=== PATIENT | male | born 1945 | race Caucasian/White ===

== ENCOUNTER 2016-09-28 07:45 | Inpatient (IN) | payer BC, OTHER ==
[~2016-09-28] VITALS: Ht 188 cm; Wt 141.5 kg
[2016-09-28 14:18] VITALS: BP 171/73; PULSE 81; TEMP 36.5; O2SAT 95
[2016-09-28] MEDS ORDERED: ACETAMINOPHEN 325 MG TAB PO PRN (14:30)
[2016-09-28] MEDS ORDERED: ONDANSETRON INJ 2 MG/ML 2 ML VIAL IV PRN (14:30)
[2016-09-28] MEDS ORDERED: MAGNESIUM HYDROXIDE SUSP 30 ML UDC PO PRN (14:30)
[2016-09-28] MEDS ORDERED: ALUMINUM/MAGNESIUM/SIMETH (MAALOX MAX) 30 ML UDC PO PRN (14:30)
[2016-09-28 14:31] VITALS: BMI 39.6
[2016-09-28 14:43] VITALS: O2SAT 95
[2016-09-28] MEDS ORDERED: PATIENT'S ALLERGY INFO NEEDS ENTERED SCH (14:50)
--- NOTE | 2016-09-28 14:56 | Consultant Recommendations ---
Api Developer Recommendations Date of Service Sep 28, 2016. Api Developer Recommendations ID Consult Dictated #[id number] A/P: 1. Fever -Follow cultures, await old records -No clear sign of infection on exam -will follow, thank you
[2016-09-28] MEDS ORDERED: PIPERACILL/TAZOBAC CONSULT ACTIVE PRN (15:00)
--- NOTE | 2016-09-28 15:01 | History and Physical ---
History & Physical Date & Time of Service: Sep 28, 2016 at 14:42 Chief Complaint: Metastatic Colon Cancer Primary Care Physician: Aba Guajardo M.D. History of Present Illness Source: patient Patient is a 71 year old male that presents as a direct transfer from [facility] with a 5 day history of fever. The patient was admitted on Sunday to [facility] with confusion and a high fever. During workup his WBC was found to be 19 although no source of infection was indicated. During workup abdominal CT showed multiple liver mets including a right sided colon mass. He was taken for colonoscopy yesterday at [facility] and had his Eliquis held since yesterday. During his inpatient stay he was on Vancomycin, Cefepime, and Clindamycin for coverage. He was also found to have Iron deficiency anemia but have held iron supplementation due to his GI findings. The patient states that he was previously healthy other than multiple bilateral knee surgeries by [facility] over the last year. He currently denies any acute complaints and states he feels well this morning. Allergies Coded Allergies: No Known Allergies (Unverified , 09/28/16) Home Medications Scheduled Apixaban (Eliquis), 5 MG PO BID Cyanocobalamin (Vitamin B-12), 250 MCG PO DAILY Metolazone (Zaroxolyn), 2.5 MG PO DAILY Potassium Chloride Microencaps (Potassium Chloride Er), 1 TAB PO DAILY Spironolactone (Aldactone), 1 TAB PO DAILY Miscellaneous Medications Furosemide (Lasix), 40 MG PO Review of Systems Constitutional: No fever, No chills ENT: No hearing loss Respiratory: No cough, No shortness of breath Cardiovascular: No chest pain Abdomen: No pain, No nausea, No vomiting, No diarrhea, No constipation Neurologic: No numbness/tingling Hematologic / Lymphatic: No abnormal bleeding/bruising Integumentary: No rash, No new/changing skin lesions, No bleeding Physical Exam Vital Signs Date Time Temp Pulse Resp B/P (MAP) Pulse Ox O2 Delivery O2 Flow Rate FiO2 09/28/16 14:18 36.5 81 20 171/73 (105) 95 Room Air General Appearance: no apparent distress, + obese Head: normocephalic, atraumatic Respiratory/Chest: chest non-tender, lungs clear, normal breath sounds Cardiovascular: normal peripheral pulses, + systolic murmur, + irregularly irregular Abdomen/GI: normal bowel sounds, non tender, soft, no pulsatile mass, + distended Back: normal inspection, no CVA tenderness Extremities/Musculoskelatal: no calf tenderness, + pedal edema, + swelling (2+ pitting to knee) Neurologic/Psych: alert, normal mood/affect, oriented x 3 Skin: + pertinent finding (stasis dermatitis over lower extremities) Impression Assessment and Plan Patient is a 71 year old male that presents with a 5 day history of fever 1) Fever of unknown origin - Possibly related to GI Malignancy? - Zosyn 3.375 q6h IV - Consult Infectious Disease 2) Colon Cancer - Awaiting Colonoscopy results from [facility] - CT results show multiple liver masses with right sided colon mass 3) Chronic Atrial Fibrillation - Continue to hold Eliquis until tomorrow due to Colonoscopy procedure performed yesterday 4) Iron Deficiency Anemia - Ordered CBC, Transferrin, Ferritin, and TIBC 5) Hypokalemia - K+ 3.2 - 2 Doses of 20 mEq IV K+ 6) Home Medications - Continue Furosemide and Spironolactone - Hold Eliquis due to procedure yesterday 7) DVT Prophylaxis - SCD and LALI - Holding due to recent colonoscopy 8) Code Status - DNR Resident Physician Supervision Note: I was present with Dr. Sheth during the history and exam. I discussed the case with the resident and agree with the findings and plan as documented in the note. Any exceptions or clarifications are listed here: 71 y/o M with persistent fever and likely new Dx of met Colon CA Fevers are low grade and no infection source are found OE Overweight elderly male in no distress S1,2 R CTAB Distended, NT, BS+ Min edema P: Awaiting colonoscopy results Awaiting culture results Broad spectrum coverage - ID consult Fevers may be low grade and owing to malignancy May need additional imaging - full body CT Documented By: Talat Wharton Level of Care Med/Surg Advanced Directives Existing Power of Transport Tech: Yes Resuscitation Status DO NOT RESUSCITATE VTE Prophylaxis VTE Risk Assessment Done? Y/N: Yes Risk Level: High Given or contraindicated: T.E.D. Stockings, SCD's
[2016-09-28 15:33] LABS: BASO % 0.3 %; BASO ABS # 0.05 K/uL (0-0.2); COMPLETE YES; EOS % 0.6 %; HEMATOCRIT 29.9 % (42-52); IG% 1.1 %; LYMPH % 10.4 %; LYMPH ABS # 1.83 K/uL (1.2-3.4); MEAN CELL VOLUME 79.9 fL (80-100); MEAN CORPUSCULAR HEMOGLOBIN 26.7 pg (25-34); MEAN CORPUSCULAR HGB CONC 33.4 g/dl (32-36); MEAN PLATELET VOLUME 8.9 fL (7.4-10.4); MONO % 7.5 %; NEUT % 80.1 %; PLATELET COUNT 383 K/uL (130-400); RED BLOOD COUNT 3.74 M/uL (4.7-6.1); WHITE BLOOD COUNT 17.55 K/uL (4.8-10.8)
[2016-09-28 15:39] VITALS: BP 133/73; PULSE 87; TEMP 36.5; O2SAT 95
[2016-09-28 16:10] VITALS: O2SAT 95
[2016-09-28 16:21] LABS: BUN/CREATININE RATIO 9.4 (10-20); CREATININE 0.74 mg/dl (0.60-1.40); POTASSIUM 3.2 mmol/L (3.5-5.1)
[2016-09-28] MEDS ORDERED: PIPERACILL/TAZOBAC IV 4.5 GM in DEXTROSE 5% 100ML IV SCH (16:30)
[2016-09-28 16:44] LABS: FERRITIN 359.8 ng/ml (8.0-388.0); TOTAL IRON BINDING CAPACITY 182 mcg/dl (250-450)
--- NOTE | 2016-09-28 16:46 | INFECT. DISEASE CONSULTATION ---
DATE OF CONSULTATION: 09/28/2016 HISTORY OF PRESENT ILLNESS: This is a 71-year-old gentleman who was transferred from [facility] with fevers. He was admitted initially on Sunday after he had an episode of disorientation at home and was found to be febrile. He states the week prior, he was admitted for a 24-hour overnight for fevers, but he states no infection was found and he was subsequently discharged to home. He states he was started on antibiotics. Per the admitting team he was on vancomycin, cefepime and Flagyl empirically. It is also verbally reported to me that he did have a CAT scan while admitted to [facility] which showed colon mass and liver metastasis. I do not have report for review. He also reportedly had colonoscopy; however, I do not know the results of that. Blood cultures are reportedly negative and patient remains on antibiotics. He states that he has been asymptomatic with fevers and he is unclear when his last fever was. He is tolerating antibiotics well. He states prior to admission he was feeling healthy. He states his appetite was strong. He denies any melena or any difficulty with bowel movements. He denied any nausea, vomiting, diarrhea, abdominal pain, abdominal distention, weight change or change in appetite. He does have a dry cough but denies any shortness of breath or dyspnea on exertion. He denies any purulent cough or any hemoptysis. He denies any chest pain or shortness of breath. He denies any headache or visual changes. He denies any skin rash. He denies any tick bites. He has had no recent travel. He has no sick contacts at home. He remains on antibiotics. His only pertinent infectious history is bilateral knee replacements with significant infection in the right knee. He does admit to having infection and multiple knee replacements on the right side secondary to this; however, he is unable to tell me what cultures grew. He states he was on a prolonged course of intravenous antibiotics in 2014 and again in the early part of 2016, but his PICC line has subsequently been removed and he was not on any antibiotics leading up to this admission to the hospital. He denies any significant medical history, but reportedly has a new diagnosis of colon mass with liver metastases. He denies any surgery other than his bilateral knee replacements with multiple re-do surgeries on the right side. He denies any allergies to medications. FAMILY HISTORY: Noncontributory. CURRENT MEDICATIONS: Include Aldactone, Lasix, Pepcid, Colace, Zosyn, Tylenol, Maalox, milk of magnesia and Zofran. PHYSICAL EXAMINATION: VITAL SIGNS: Temperature is 36.5, pulse 81, respiratory rate is 20, blood pressure is 171/73 and oxygen saturation is 95% on room air. GENERAL: He is awake, alert and oriented x3. He is in no acute distress. HEENT: Mucous membranes are moist. Extraocular muscles are intact. HEART: Regular. LUNGS: Clear. ABDOMEN: Distended but nontender. EXTREMITIES: There is no lower extremity erythema. There is edema bilaterally. Knee incisions are well healed. There is no laboratory studies or imaging to review at this time. ASSESSMENT AND PLAN: Fever, certainly infectious sources should be ruled out, especially with his history of knee infection; however, I do not see any evidence of erythema, edema, warmth or tenderness to suggest a new knee infection. Certainly his fevers could be related to new diagnosis of metastatic colon cancer; however, I will await the results of his previous records and CAT scan report. He certainly can be maintained on antibiotics pending of culture results and further laboratory studies. Thank you for this consultation.
[2016-09-28 19:40] VITALS: BP 136/75; PULSE 74; TEMP 36.4; O2SAT 96
[2016-09-28] MEDS ORDERED: APIX1TAB3 PO (20:49)
[2016-09-28] MEDS ORDERED: POTA20TA13 PO (20:49)
[2016-09-28] MEDS ORDERED: SPIR50TA3 PO (20:49)
[2016-09-28] MEDS ORDERED: METO2.5T PO (20:50)
[2016-09-28] MEDS ORDERED: FRS/40 PO (20:50)
[2016-09-28] MEDS ORDERED: CYAN250T PO (20:50)
[2016-09-28] MEDS ORDERED: NURSING VERBAL MED ORDER ONE ×2 (21:00→22:00)
[2016-09-28] MEDS ORDERED: POTASSIUM CHLR 20 MEQ / WTR 20 MEQ in PREMIXED WATER 100 ML IV SCH (21:15)
[2016-09-28] MEDS ORDERED: POTASSIUM CHLR 10 MEQ / WTR 10 MEQ in PREMIXED WATER 100 ML IV SCH (21:15)
[2016-09-28] MEDS: PIPERACILL/TAZOBAC IV 4.5 GM in DEXTROSE 5% 100ML 100 ML IV SCH (21:20)
[2016-09-28] MEDS ORDERED: CEFTRIAXONE SOD IM SCH (21:30)
[2016-09-28] MEDS ORDERED: POTASSIUM CHLORIDE 20 MEQ TABCR PO STA (21:41)
[2016-09-28] MEDS: DOCUSATE SODIUM 100 MG CAP PO SCH (23:01)
[2016-09-28] MEDS: GUAIFENESIN SUGAR FREE 200 MG/10 ML UDC PO PRN (23:01)
[2016-09-28 23:57] VITALS: BP 114/57; PULSE 82; TEMP 36.3; O2SAT 96
[2016-09-29] MEDS: PIPERACILL/TAZOBAC IV 4.5 GM in DEXTROSE 5% 100ML 100 ML IV SCH (01:19)
[2016-09-29 04:02] VITALS: BP 132/69; PULSE 80; TEMP 36.8; O2SAT 95
[2016-09-29 06:59] VITALS: Ht 188 cm; Wt 141.5 kg
[2016-09-29 07:31] VITALS: BP 117/71; PULSE 79; TEMP 36.6; O2SAT 96
[2016-09-29] MEDS: DOCUSATE SODIUM 100 MG CAP PO SCH ×2 (07:58→20:45)
[2016-09-29] MEDS: SPIRONOLACTONE 25 MG TAB PO SCH (07:58)
[2016-09-29] MEDS: FUROSEMIDE 40 MG TAB PO SCH (07:58)
[2016-09-29] MEDS: FAMOTIDINE 20 MG TAB PO SCH (07:59)
[2016-09-29] MEDS ORDERED: PIPERACILL/TAZOBAC IV 4.5 GM in DEXTROSE 5% 100ML 100 ML IV SCH (09:00)
--- NOTE | 2016-09-29 10:16 | Family Medicine Progress Note ---
Progress Note Date of Service Sep 29, 2016. Subjective Pt evaluation today including: conversation w/ patient, physical exam Voiding: no voiding problems, no incontinence Had a long discussion about cancer today - he was so surprised, as he never thought he would get cancer. He overall lives at home with a roommate and his mom. He reports at times his roommate's mom answers questions for him and he does not like this. He had a CT of abdomen and pelvis done at [facility], but has not had further screening for staging. He doesn't have any pain. Wants to overall remain comfortable. He would be willing to try chemo / radiation and surgery IF it could be curative. Records from [facility] reviewed. Pertinent labwork: ESR 90, CEA 663, AFP 0.9 CT Chest: No lung mets. Innumerous hepatic mets. CT A/P: Hepatic mets, colonic mass visualized. Colonoscopy: Large friable tumor present 75-99% of cecum - 3 biopsies were taken (Pending results). 3-4 sessile polyps visualized but no biopsies taken. Additional Comments: ROS negative unless otherwise noted in HPI. Medications Current Inpatient Medications Medications (Trade) Dose Ordered Sig/Carley Route Start Time Stop Time Status Last Admin Dose Admin Acetaminophen (Tylenol Tab) 650 mg Q4H PRN PO 09/28/16 14:30 10/28/16 14:29 Al Hydrox/Mg Hydrox/Simethicone (Maalox Max Susp) 15 ml Q4H PRN PO 09/28/16 14:30 10/28/16 14:29 Magnesium Hydroxide (Milk Of Magnesia Susp) 30 ml Q6H PRN PO 09/28/16 14:30 10/28/16 14:29 Ondansetron HCl (Zofran Inj) 4 mg Q6H PRN IV 09/28/16 14:30 10/28/16 14:29 Spironolactone (Aldactone Tab) 50 mg QAM PO 09/29/16 08:00 10/29/16 07:59 09/29/16 07:58 50 MG Furosemide (Lasix Tab) 40 mg QAM PO 09/29/16 08:00 10/29/16 07:59 09/29/16 07:58 40 MG Famotidine (Pepcid Tab) 20 mg QAM PO 09/29/16 08:00 10/29/16 07:59 09/29/16 07:59 20 MG Docusate Sodium (coLACE CAP) 100 mg BID PO 09/28/16 20:00 10/28/16 19:59 09/29/16 07:58 100 MG Piperacillin Sod/ Tazobactam Sod (Consult) 1 ea UD PRN N/A 09/28/16 15:00 10/28/16 14:59 Guaifenesin (Robitussin Sugar Free Syrup) 200 mg Q4H PRN PO 09/28/16 22:30 10/28/16 22:29 09/28/16 23:01 200 MG Piperacillin Sod/ Tazobactam Sod 4.5 gm/Dextrose 120 ml @ 30 mls/hr Q8H IV 09/29/16 09:00 09/30/16 23:59 09/29/16 07:59 30 MLS/HR Objective Vital Signs Date Time Temp Pulse Resp B/P (MAP) Pulse Ox O2 Delivery O2 Flow Rate FiO2 09/29/16 07:31 36.6 79 18 117/71 (86) 96 09/29/16 04:02 36.8 80 20 132/69 (90) 95 Room Air 09/29/16 00:00 Room Air 09/28/16 23:57 36.3 82 20 114/57 (76) 96 Room Air 09/28/16 19:40 36.4 74 18 136/75 (95) 96 Room Air 09/28/16 16:10 95 Room Air 09/28/16 15:39 36.5 87 20 133/73 (93) 95 Room Air 09/28/16 14:43 95 Room Air 09/28/16 14:18 36.5 81 20 171/73 (105) 95 Room Air Physical Exam General Appearance: WD/WN, no apparent distress, + obese Eyes: normal inspection, PERRL ENT: hearing grossly normal Neck: supple, no JVD Respiratory/Chest: lungs clear, normal breath sounds, no respiratory distress Cardiovascular: regular rate, rhythm, no murmur Abdomen: normal bowel sounds, non tender, soft Extremities: non-tender, normal inspection, no pedal edema Neurologic/Psychiatric: alert, normal mood/affect Skin: no rash Lymphatic: no adenopathy Laboratory Results Last 24 Hours Test 09/28/16 14:58 09/28/16 15:22 Transferrin % Saturation % White Blood Count 17.55 K/uL Red Blood Count 3.74 M/uL Hemoglobin 10.0 g/dL Hematocrit 29.9 % Mean Corpuscular Volume 79.9 fL Mean Corpuscular Hemoglobin 26.7 pg Mean Corpuscular Hemoglobin Concent 33.4 g/dl Platelet Count 383 K/uL Mean Platelet Volume 8.9 fL Neutrophils (%) (Auto) 80.1 % Lymphocytes (%) (Auto) 10.4 % Monocytes (%) (Auto) 7.5 % Eosinophils (%) (Auto) 0.6 % Basophils (%) (Auto) 0.3 % Neutrophils # (Auto) 14.05 K/uL Lymphocytes # (Auto) 1.83 K/uL Monocytes # (Auto) 1.32 K/uL Eosinophils # (Auto) 0.11 K/uL Basophils # (Auto) 0.05 K/uL RDW Standard Deviation 50.5 fL RDW Coefficient of Variation 17.2 % Immature Granulocyte % (Auto) 1.1 % Immature Granulocyte # (Auto) 0.19 K/uL Sodium Level 134 mmol/L Potassium Level 3.2 mmol/L Chloride Level 93 mmol/L Carbon Dioxide Level 31 mmol/L Anion Gap 10.0 mmol/L Blood Urea Nitrogen 7 mg/dl Creatinine 0.74 mg/dl Est Creatinine Clear Calc Drug Dose 134.4 ml/min Estimated GFR () 106.8 Estimated GFR (Non- 92.2 BUN/Creatinine Ratio 9.4 Random Glucose 96 mg/dl Calcium Level 8.0 mg/dl Total Iron Binding Capacity 182 mcg/dl Transferrin 149 mg/dl Ferritin 359.8 ng/ml Total Bilirubin 0.8 mg/dl Direct Bilirubin 0.4 mg/dl Aspartate Amino Transf (AST/SGOT) 47 U/L Alanine Aminotransferase (ALT/SGPT) 34 U/L Alkaline Phosphatase 388 U/L Total Protein 7.0 gm/dl Albumin 2.0 gm/dl Assessment and Plan 71 yo M, initially presented for fever of unknown origin, found to have metastatic colon cancer. Pending colon biopsies. Plan: Metastatic colon cancer, new diagnosis - Will get CT head today to evaluate for further mets - Awaiting colonoscopy biopsy results - Will discuss with Onc once this returns, and get him into oncology as an outpt Fever - Likely due to process of cancer - Continue to monitor, has been afebrile - Will stop Zosyn today Overall goals of care POLST form completed - DNR, Limited interventions, Abx for comfort, NO Peg tube Atrial fibrillation, chronic Will discuss restarting Eliquis Hypokalemia, 3.2 today Will add PO and IV therapy Hypoalbuminemia Will consult Nutrition VTE: SCDs, TEDS CODE STATUS: DNR Resident Physician Supervision Note: I interviewed and examined the patient. Discussed with Dr. Leung and agree with findings and plan as documented in the note. Any exceptions or clarifications are listed here: None Documented By: Jac Bey feeling better. discussed w/u extensively. no other new complaints. ROS otherwise negative except for as above vitals noted nad breathing unlabored no pallor or icterus fever - appears most likely related to malignancy - will stop abx and follow into tomorrow metastatic colon cancer - awaiting pathology but appears likely will be stable for home tomorrow- for outpt oncology f/u next week then plannnig for treatment Resident Tracking Resident Involvement: Resident Care Provided Care Provided: Adult Hospital Medicine
[2016-09-29 11:15] VITALS: BP 122/69; PULSE 82; TEMP 36.7; O2SAT 98
--- NOTE | 2016-09-29 11:32 | Progress Note ---
Subjective Date of Service: Sep 29, 2016. Subjective pt afebrile since admission, cultures pending. previous cultures reported negative. abx stopped by primary service. for further workup/staging of suspected colon ca. no overnight events. wbc elevated. AST mildly elevated. Objective Vital Signs Date Time Temp Pulse Resp B/P (MAP) Pulse Ox O2 Delivery O2 Flow Rate FiO2 09/29/16 11:15 36.7 82 18 122/69 (86) 98 09/29/16 08:00 Room Air 09/29/16 07:31 36.6 79 18 117/71 (86) 96 09/29/16 04:02 36.8 80 20 132/69 (90) 95 Room Air 09/29/16 00:00 Room Air 09/28/16 23:57 36.3 82 20 114/57 (76) 96 Room Air 09/28/16 19:40 36.4 74 18 136/75 (95) 96 Room Air 09/28/16 16:10 95 Room Air 09/28/16 15:39 36.5 87 20 133/73 (93) 95 Room Air 09/28/16 14:43 95 Room Air 09/28/16 14:18 36.5 81 20 171/73 (105) 95 Room Air Laboratory Results Last 24 Hours Test 09/28/16 14:58 09/28/16 15:22 Transferrin % Saturation % White Blood Count 17.55 K/uL Red Blood Count 3.74 M/uL Hemoglobin 10.0 g/dL Hematocrit 29.9 % Mean Corpuscular Volume 79.9 fL Mean Corpuscular Hemoglobin 26.7 pg Mean Corpuscular Hemoglobin Concent 33.4 g/dl Platelet Count 383 K/uL Mean Platelet Volume 8.9 fL Neutrophils (%) (Auto) 80.1 % Lymphocytes (%) (Auto) 10.4 % Monocytes (%) (Auto) 7.5 % Eosinophils (%) (Auto) 0.6 % Basophils (%) (Auto) 0.3 % Neutrophils # (Auto) 14.05 K/uL Lymphocytes # (Auto) 1.83 K/uL Monocytes # (Auto) 1.32 K/uL Eosinophils # (Auto) 0.11 K/uL Basophils # (Auto) 0.05 K/uL RDW Standard Deviation 50.5 fL RDW Coefficient of Variation 17.2 % Immature Granulocyte % (Auto) 1.1 % Immature Granulocyte # (Auto) 0.19 K/uL Sodium Level 134 mmol/L Potassium Level 3.2 mmol/L Chloride Level 93 mmol/L Carbon Dioxide Level 31 mmol/L Anion Gap 10.0 mmol/L Blood Urea Nitrogen 7 mg/dl Creatinine 0.74 mg/dl Est Creatinine Clear Calc Drug Dose 134.4 ml/min Estimated GFR () 106.8 Estimated GFR (Non- 92.2 BUN/Creatinine Ratio 9.4 Random Glucose 96 mg/dl Calcium Level 8.0 mg/dl Total Iron Binding Capacity 182 mcg/dl Transferrin 149 mg/dl Ferritin 359.8 ng/ml Total Bilirubin 0.8 mg/dl Direct Bilirubin 0.4 mg/dl Aspartate Amino Transf (AST/SGOT) 47 U/L Alanine Aminotransferase (ALT/SGPT) 34 U/L Alkaline Phosphatase 388 U/L Total Protein 7.0 gm/dl Albumin 2.0 gm/dl Assessment and Plan (1) Fever Assessment & Plan: doubt infectious etiology, currently afebrile. wbc elevated but could be do to suspected metastatic colon ca. currently off of abx. cultures negative. suspect fever is related to underlying cancer with mets to liver. ok to hold abx. Will sign of.
--- NOTE | 2016-09-29 12:51 | DIAGNOSTIC IMAGING REPORT ---
HEAD CT NONCONTRAST CT DOSE: 537.48 mGy.cm HISTORY: Mental status change metastatic colon ca ?mets TECHNIQUE: Multiaxial CT images of the head were performed without the use of intravenous contrast. Comparison: None. Findings: The paranasal sinuses and mastoid air cells are clear. The calvarium and skull base are intact. The ventricles and sulci are within normal limits. There is no mass, hematoma, midline shift, or acute infarct. Impression: No acute intracranial abnormality. Electronically signed by: Jeb Walker M.D. 09/29/2016 12:49 PM Dictated Date/Time: 09/29/2016 12:48 PM
[2016-09-29 14:48] VITALS: BP 115/51; PULSE 86; TEMP 36.6; O2SAT 95
[2016-09-29 18:35] LABS: INR 1.3 (0.9-1.1); PROTHROMBIN TIME (PATIENT) 13.5 SECONDS (9.0-12.0)
[2016-09-29 19:41] VITALS: BP 146/63; PULSE 85; TEMP 36.6; O2SAT 96
[2016-09-29] MEDS ORDERED: NON-FORMULARY MEDICATION (Apixaban (Eliquis) 5 MG) PO SCH (20:00)
[2016-09-29] MEDS: APIXABAN 2.5 MG TAB PO SCH (20:46)
[2016-09-30] VITALS (7 sets, daily range): BP systolic 114–156; BP diastolic 66–82; PULSE 74–81; TEMP 36.4–37.5; O2SAT 94–96
[2016-09-30 06:51] LABS: CREATININE 0.77 mg/dl (0.60-1.40)
[2016-09-30] MEDS ORDERED: SPIRONOLACTONE PO SCH (08:00)
[2016-09-30] MEDS: APIXABAN 2.5 MG TAB PO SCH (08:43)
[2016-09-30] MEDS: FUROSEMIDE 40 MG TAB PO SCH (08:44)
[2016-09-30] MEDS: DOCUSATE SODIUM 100 MG CAP PO SCH (08:44)
[2016-09-30] MEDS: SPIRONOLACTONE 25 MG TAB PO SCH (08:45)
[2016-09-30] MEDS: FAMOTIDINE 20 MG TAB PO SCH (08:46)
[2016-09-30] MEDS ORDERED: POTASSIUM CHLORIDE 10 MEQ TABCR PO ONE (09:45)
[2016-09-30] MEDS: GUAIFENESIN SUGAR FREE 200 MG/10 ML UDC PO PRN (09:57)
--- NOTE | 2016-09-30 11:11 | Discharge Instructions ---
Discharge Instructions Date of Service Sep 30, 2016. Admission Reason for Admission: Metastatic Colon Cancer Discharge Discharge Diagnosis / Problem: new diagnosis of metastatic colon cancer Discharge Goals Goal(s): Diagnostic testing Activity Recommendations Activity Limitations: resume your previous activity . Instructions / Follow-Up Instructions / Follow-Up you should be contacted by the cancer center sometime sunday for a follow up appointment - we've notified the oncology team as well as our nurse navigator to be working on this. as a final "failsafe" if you haven't heard from them by about 2p on sunday, call [phone] to check on the status of your appointment since the fever almost certainly was being caused by the cancer, and not by an infection, until you're getting treatment it's quite possible that you'll have more fevers from time to time. if it's just the fever, and only the fever, without any other new or worrisome symptoms, then it would be OK to take a tylenol and watch/wait. if it's any symptoms beyond the fever, or anything seems weird or worrisome, then we'd want you to get checked out right away. Current Hospital Diet Patient's current hospital diet: Regular Diet Discharge Diet Recommended Diet: Regular Diet Pending Studies Studies pending at discharge: yes List of pending studies: pathology report from the colonoscopy biopsy done at [facility] Medical Emergencies . Who to Call and When: Medical Emergencies: If at any time you feel your situation is an emergency, please call 911 immediately. . Non-Emergent Contact Non-Emergency issues call your: Primary Care Provider, Oncologist . . "Provider Documentation" section prepared by Jac Bey. . Welder Tack Recommendations Welder Tack Recommendations: ID Consult Dictated #[id number] A/P: 1. Fever -Follow cultures, await old records -No clear sign of infection on exam -will follow, thank you VTE Core Measure Inpt VTE Proph given/why not?: Other Anticoagulation (eliquis), TBrennon Siddiqi, SCD's
--- NOTE | 2016-09-30 12:07 | Discharge Summary ---
Discharge Summary Date of Service Sep 30, 2016. Discharge Summary Admission Date: Sep 28, 2016 at 13:27 Discharge Date: Sep 30, 2016 Discharge Disposition: Home Principal Diagnosis: fever related to new colon cancer Procedures: done at [facility] predominantly - see records from there (colo showing cecal mass - biopsied, CT abd/pelvis showing probable liver mets) CT head here clear of mets Last Resulted CBC 09/28/16 15:22 Red Blood Count 3.74, Mean Corpuscular Volume 79.9, Mean Corpuscular Hemoglobin 26.7, Mean Corpuscular Hemoglobin Concent 33.4, Mean Platelet Volume 8.9, Neutrophils (%) (Auto) 80.1, Lymphocytes (%) (Auto) 10.4, Monocytes (%) (Auto) 7.5, Eosinophils (%) (Auto) 0.6, Basophils (%) (Auto) 0.3, Neutrophils # (Auto) 14.05, Lymphocytes # (Auto) 1.83, Monocytes # (Auto) 1.32, Eosinophils # (Auto) 0.11, Basophils # (Auto) 0.05 Last Resulted BMP 09/28/16 15:22 09/30/16 05:18 Consultations: infectious disease Medication Reconciliation Continued Medications: Apixaban (Eliquis) 5 Mg Tab 5 MG PO BID, TAB Cyanocobalamin (Vitamin B-12) 250 Mcg Tab 250 MCG PO DAILY, TAB Furosemide (Lasix) 40 Mg Tab 40 MG PO, TAB Metolazone (Zaroxolyn) 2.5 Mg Tab 2.5 MG PO DAILY, TAB Potassium Chloride Microencaps (Potassium Chloride Er) 20 Meq Tab 1 TAB PO DAILY for 30 Days, #30 TAB 5 Refills Spironolactone (Aldactone) 50 Mg Tab 1 TAB PO DAILY for 30 Days, #30 TAB 3 Refills Discharge Exam Physical Exam: General Appearance: no apparent distress Eyes: EOMI ENT: hearing grossly normal Neck: trachea midline Respiratory/Chest: no respiratory distress, no accessory muscle use Extremities: normal inspection 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 was worked up appropriately at [facility] - found to have new colon cancer w mets, but transferred here due to concern on ?concomitant occult infection. seen by ID here, primary and ID thought unlikely infection - abx held 09/29, no recurrence of fever and no s/s infectio --> stable for home. --new colon cancer discussed extensively - since no final pathology back yet, will wait to have see oncology until ?mid next week (at the latest) to have complete picture for treatment plan. discussed options and he chooses to seek treatment here - referral made, asked RN joe to assist in setting up, and also gave pt # for [facility]. -stable for home. discussed treatment of fever if purely fever vs when to seek attention if new sx / worry sx. (summation - if only a temp and nothing else, can cautiously treat w tylenol at home/watchful waiting, but if any level of concern or any other new sx/change sx to go with the fever then would want to seek care immediately) discharge to home, close oncology and PCP f/u Total Time Spent: Greater than 30 minutes This includes examination of the patient, discharge planning, medication reconciliation, and communication with other providers. Discharge Instructions Please refer to the electronic Patient Visit Report (Discharge Instructions) for additional information. Additional Copies To Shreyas Chandler D.O.; Aba Guajardo M.D.
[2016-10-28] MEDS ORDERED: LORA-741 PO (10:08)
[2016-10-28] MEDS ORDERED: POTA20TA13 PO (10:08)
[2016-10-28] MEDS ORDERED: TPRSR25 PO (10:08)
[2016-10-28] MEDS ORDERED: RXNS5 PO (10:08)
== END 2016-09-30 13:23 | disposition home or self-care (01) | DRG 375 ==
LOC: C.4E 13:27
PROVIDERS: ADMIT Internal Medicine; ATTEND Family Medicine
DX: C18.9 Malignant neoplasm of colon, unspecified (principal); C78.7 Secondary malignant neoplasm of liver and intrahepatic bile duct; Z68.41 Body mass index [BMI] 40.0-44.9, adult; R50.81 Fever presenting with conditions classified elsewhere; D50.9 Iron deficiency anemia, unspecified; E87.6 Hypokalemia; E88.09 Other disorders of plasma-protein metabolism, not elsewhere classified; I48.2 Chronic atrial fibrillation; E66.9 Obesity, unspecified; Z66 Do not resuscitate; Z96.653 Presence of artificial knee joint, bilateral; Z79.01 Long term (current) use of anticoagulants; Z79.899 Other long term (current) drug therapy

== ENCOUNTER 2016-10-18 11:23 | Inpatient (IN) | payer BC, OTHER ==
[2016-10-18] VITALS (8 sets, daily range): BP systolic 128–160; BP diastolic 57–73; PULSE 102–120; TEMP 36.5–37.2; O2SAT 87–95; Ht 188 cm; Wt 129.5 kg
[~2016-10-18] VITALS: Ht 188 cm; Wt 129.5 kg
[~2016-10-18 11:23] MED LIST: APIX1TAB3 PO; CYAN250T PO; FRS/40 PO; METO2.5T PO; POTA20TA13 PO; SPIR50TA3 PO
[2016-10-18] MEDS ORDERED: HYDROCODONE/HOMATROPINE SYRUP 5MG/1.5MG 5ML UDP PO STA (12:23)
--- NOTE | 2016-10-18 12:27 | EMERGENCY ROOM VISIT NOTE ---
History Report prepared by Anya: Ignacio Jeff Under the Supervision of: Dr. Rich Soria M.D. First contact with patient: 12:05 Chief Complaint: SHORTNESS OF BREATH Stated Complaint: SHORTNESS OF BREATH Nursing Triage Summary: Increasing SOB and cough. Patient recently diagnosed with colon CA by colonoscopy and is to see surgeon next week. Patient states he has had a productive cough with moderate sputum production white in color for 3-4 days. Patient began with SOB over night. No SOB prior to this time. History of Present Illness The patient is a 71 year old male who presents to the Emergency Room with complaints of worsening shortness of breath that started 3 weeks ago. The patient was recently diagnosed with colon cancer by colonoscopy. He says that ever since he was diagnosed around 3 weeks ago, he has had worsening breathing difficulties The patient adds that he started having a productive cough with moderate white sputum production 3 days ago, that is really bad at night. The patient states that he saw his cancer doctor (Dr. Brand) on the 08 of October , and has another appointment scheduled for November 07. However, due to the patient's increasing shortness of breath, the patient called Dr. Brand this morning, and was recommended to come here to be admitted now. The patient says that he cannot walk around his house due to the shortness of breath. He denies any abdominal pain. He adds that he is always in atrial fibrillation, and is on Eliquis for that. Source of History: patient Onset: 3 weeks ago Position: other (global - shortness of breath) Symptom Intensity: cannot walk due to shortness of breath Timing: worsening Modifying Factors (Worsening): exertion Associated Symptoms: + cough, No abdominal pain Note: No other associated symptoms noted. Review of Systems See HPI for pertinent positives & negatives. A total of 10 systems reviewed and were otherwise negative. Past Medical & Surgical Medical Problems: (1) Congestive heart failure (2) Fever (3) Fever of unknown origin Family History No pertinent family history Social History Smoking Status: Never Smoker Marital Status: single Occupation Status: retired Current/Historical Medications Scheduled Apixaban (Eliquis), 5 MG PO BID Cyanocobalamin (Vitamin B-12), 250 MCG PO DAILY Furosemide (Lasix), 40 MG PO BID Metolazone (Zaroxolyn), 2.5 MG PO DAILY Potassium Chloride Microencaps (Potassium Chloride Er), 1 TAB PO DAILY Spironolactone (Aldactone), 1 TAB PO DAILY Allergies Coded Allergies: No Known Allergies (Unverified , 09/28/16) Physical Exam Vital Signs Date Time Temp Pulse Resp B/P (MAP) Pulse Ox O2 Delivery O2 Flow Rate FiO2 10/18/16 14:31 129 26 169/98 93 Room Air 10/18/16 13:11 99 22 140/89 99 Nebulizer 10/18/16 13:03 104 18 94 Room Air 10/18/16 12:53 94 Room Air 10/18/16 12:53 94 Room Air 10/18/16 12:06 108 10/18/16 11:33 36.8 104 10 134/77 94 Room Air 10/18/16 11:33 94 Room Air Physical Exam GENERAL: Patient is a healthy-appearing well-nourished 71 year old male. Coughing. HEAD: Normocephalic atraumatic EYES: Ocular movements intact pupils equal and react to light OROPHARYNX mucous membranes are moist no exudates present no erythema or edema present NECK: Supple no nuchal rigidity CHEST: Good equal expansion LUNGS: Clear and equal to auscultation CARDIAC: Normal S1 and S2 ABDOMEN: Soft nontender no guarding BACK: No CVA tenderness EXTREMITIES: No pain upon palpation normal muscle strength in all groups no clubbing cyanosis or edema NEURO: Patient is following commands and answering questions appropriately. Alert and oriented x3 Cranial Nerves 2-12 grossly intact Medical Decision & Procedures ER Provider Diagnostic Interpretation: Radiology results as stated below per my review and radiologist interpretation: CHEST ONE VIEW PORTABLE CLINICAL HISTORY: Pt c/o SOB dyspnea COMPARISON STUDY: No previous studies for comparison. FINDINGS: Mild cardia megaly. Prominent pulmonary vasculature. Small left effusion. IMPRESSION: Mild congestive heart failure. Electronically signed by: Jeb Walker M.D. 10/18/2016 12:45 PM Dictated Date/Time: 10/18/2016 12:[address] ANGIOGRAM OF THE CHEST CLINICAL HISTORY: 71 years-old Male presenting with chest pain. COMPARISON: 09/25/2016. TECHNIQUE: Multidetector CT angiography of the chest was performed following the administration of 100 milliliters of Optiray 320 using a pulmonary embolus protocol. 3-D maximal intensity projection (MIP) images were created for review. CT DOSE: 856.42 mGy.cm FINDINGS: Patient body habitus, respiratory motion, and suboptimal timing of the contrast bolus mildly limited evaluation for pulmonary embolus. Pulmonary vasculature: Allowing for limitations in image quality, no filling defect within the pulmonary arteries to suggest embolus. Main pulmonary artery enlarged measuring 3.5 cm in transverse dimension, which could suggest pulmonary hypertension. Remaining chest: On soft tissue windows, normal thyroid and thoracic inlet. No axillary, mediastinal, or hilar lymphadenopathy. Few prominent pericardial lymph nodes as on prior exam. Biatrial enlargement of the heart. Aortic valve, mitral annular, and coronary artery calcification. Aortic arch atherosclerosis. Normal three-vessel branching pattern of the aortic arch. No pericardial effusion. Small right pleural effusion. On lung windows, minimal dependent opacities in the right lung, likely atelectasis. Airways patent. On bone windows, degenerative changes of the thoracic spine noted. IMPRESSION: 1. Suboptimal evaluation of the pulmonary arterial tree. No central pulmonary embolus. Enlargement of the main pulmonary artery to suggest pulmonary hypertension. 2. No acute intrathoracic pathology. 3. Cardiomegaly. Electronically signed by: Moo Hayes 10/18/2016 3:07 PM Dictated Date/Time: 10/18/2016 2:52 PM Laboratory Results 10/18/16 12:52 Red Blood Count 3.89, Mean Corpuscular Volume 80.7, Mean Corpuscular Hemoglobin 25.4, Mean Corpuscular Hemoglobin Concent 31.5, Mean Platelet Volume 9.9, Neutrophils (%) (Auto) 73.6, Lymphocytes (%) (Auto) 13.1, Monocytes (%) (Auto) 12.1, Eosinophils (%) (Auto) 0.2, Basophils (%) (Auto) 0.2, Neutrophils # (Auto ) 12.13, Lymphocytes # (Auto) 2.16, Monocytes # (Auto) 2.00, Eosinophils # (Auto ) 0.04, Basophils # (Auto) 0.03 10/18/16 12:52 Test 10/18/16 00:00 10/18/16 12:52 10/18/16 13:02 Urine Color DK YELLOW Urine Appearance CLOUDY (CLEAR) Urine pH 5.5 (4.5-7.5) Urine Specific [place] 1.026 (1.000-1.030) Urine Protein TRACE (NEG) Urine Glucose (UA) NEG (NEG) Urine Ketones NEG (NEG) Urine Occult Blood NEG (NEG) Urine Nitrite NEG (NEG) Urine Bilirubin 1+ (NEG) Urine Urobilinogen NEG (NEG) Urine Leukocyte Esterase NEG (NEG) Urine WBC (Auto) 1-5 /hpf (0-5) Urine RBC (Auto) 0-4 /hpf (0-4) Urine Hyaline Casts (Auto) 5-10 /lpf (0-5) Urine Epithelial Cells (Auto) 10-20 /lpf (0-5) Urine Bacteria (Auto) NEG (NEG) Influenza Type A (RT-PCR) Neg for Influ A (NEG) Influenza Type A Antigen Neg for Influ A (NEG) Influenza Type B Antigen Neg for Influ B (NEG) Influenza Type B (RT-PCR) Neg for Influ B (NEG) White Blood Count 16.49 K/uL (4.8-10.8) Red Blood Count 3.89 M/uL (4.7-6.1) Hemoglobin 9.9 g/dL (14.0-18.0) Hematocrit 31.4 % (42-52) Mean Corpuscular Volume 80.7 fL (80-100) Mean Corpuscular Hemoglobin 25.4 pg (25-34) Mean Corpuscular Hemoglobin Concent 31.5 g/dl (32-36) Platelet Count 204 K/uL (130-400) Mean Platelet Volume 9.9 fL (7.4-10.4) Neutrophils (%) (Auto) 73.6 % Lymphocytes (%) (Auto) 13.1 % Monocytes (%) (Auto) 12.1 % Eosinophils (%) (Auto) 0.2 % Basophils (%) (Auto) 0.2 % Neutrophils # (Auto) 12.13 K/uL (1.4-6.5) Lymphocytes # (Auto) 2.16 K/uL (1.2-3.4) Monocytes # (Auto) 2.00 K/uL (0.11-0.59) Eosinophils # (Auto) 0.04 K/uL (0-0.5) Basophils # (Auto) 0.03 K/uL (0-0.2) RDW Standard Deviation 59.2 fL (36.4-46.3) RDW Coefficient of Variation 20.4 % (11.5-14.5) Immature Granulocyte % (Auto) 0.8 % Immature Granulocyte # (Auto) 0.13 K/uL (0.00-0.02) Polychromasia 2+ Hypochromasia PRESENT Anisocytosis PRESENT Microcytosis PRESENT Prothrombin Time 15.8 SECONDS (9.0-12.0) Prothromb Time International Ratio 1.5 (0.9-1.1) D-Dimer > 12670 ug/L FEU (0-500) Anion Gap 10.0 mmol/L (3-11) Est Creatinine Clear Calc Drug Dose 140.9 ml/min Estimated GFR () 109.3 Estimated GFR (Non- 94.3 BUN/Creatinine Ratio 27.0 (10-20) Calcium Level 8.6 mg/dl (8.5-10.1) Total Bilirubin 1.9 mg/dl (0.2-1) Aspartate Amino Transf (AST/SGOT) 244 U/L (15-37) Alanine Aminotransferase (ALT/SGPT) 89 U/L (12-78) Alkaline Phosphatase 870 U/L (45-117) Pro-B-Type Natriuretic Peptide 2193 pg/ml (0-900) Total Protein 6.5 gm/dl (6.4-8.2) Albumin 2.0 gm/dl (3.4-5.0) Globulin 4.5 gm/dl (2.5-4.0) Albumin/Globulin Ratio 0.4 (0.9-2) Bedside D-Dimer > 450 ng/mlFEU (0-450) Labs reviewed by ED physician. Medications Administered Medications (Trade) Dose Ordered Sig/Carley Route Start Time Stop Time Status Last Admin Dose Admin Albuterol/ Ipratropium (Duoneb) 12 ml ONE ONCE INH 10/18/16 12:30 10/18/16 12:31 DC 10/18/16 12:30 12 ML Hydrocodone Bit/ Homatropine Methylb (Hycodan Syrup) 5 ml NOW STAT PO 10/18/16 12:23 10/18/16 12:27 DC 10/18/16 12:53 5 ML Furosemide (Lasix Inj) 40 mg NOW STAT IV 10/18/16 13:18 10/18/16 13:19 DC 10/18/16 13:18 40 MG ECG Indication: SOB/dyspnea Rate (beats per minute): 107 Rhythm: atrial fibrillation (with RVR) Findings: no acute ischemic change, other (old septal infarct) Comparison ECG Date: no prior available ED Course 1218: Past medical records reviewed. The patient was evaluated in room C12B. A complete history and physical examination was performed. 1223: Ordered Hycodan Syrup 5 ml PO. 1230: Ordered Duoneb 12 ml INH. 1255: I reevaluated and updated the patient. 1318: Ordered Lasix Inj 40 mg IV. 1510: I reevaluated and updated the patient. The patient verbally expressed understanding and agreement of the treatment plan. The patient will be evaluated for further treatment. 1515: I discussed the patient with Dr. Angela LEVIN hospitalist - he will evaluate the patient for further treatment. Medical Decision Differential diagnosis: Etiologies such as infections, reactive airway disease, pneumonia, pneumothorax , COPD, CHF, cardiac ischemia, pulmonary embolism, musculoskeletal, gastrointestinal, as well as others were entertained. Medication Reconciliation: I attest that I have personally reviewed the patient' s current medication list Blood Pressure Screening: Patient was found to have an elevated blood pressure and was referred to their primary care doctor for recheck and further treatment This is a 71-year-old male who presents emergency department complaining of shortness of breath. The patient appears to have a congestive heart failure exacerbation. His d-dimer is grossly elevated therefore he was sent for CAT scan of the chest. This did not reveal any evidence of PE. He was given Lasix as well as an hour-long breathing treatment in the emergency department. I did discuss the case with the hospitalist service who agreed to admit the patient. Patient was in agreement with treatment plan. Consults Time Called: 151 Consulting Physician: Dr. Angela LEVIN hospitalist Returned Call: 1515 I discussed the patient with Dr. Angela LEVIN hospitalist - he will evaluate the patient for further treatment. Impression Primary Impression: CHF exacerbation Scribe Attestation The scribe's documentation has been prepared under my direction and personally reviewed by me in its entirety. I confirm that the note above accurately reflects all work, treatment, procedures, and medical decision making performed by me. Departure Information Dispostion Being Evaluated By Hospitalist Referrals No Doctor, Assigned (PCP) Patient Instructions My [facility] Problem Qualifiers Primary Impression: CHF exacerbation Congestive heart failure type: systolic Qualified Codes: I50.23 - Acute on chronic systolic (congestive) heart failure
[2016-10-18] MEDS ORDERED: ALBUT/IPRATROP 3MG/0.5MG NEB 3 ML VIAL INH ONE (12:30)
--- NOTE | 2016-10-18 12:47 | DIAGNOSTIC IMAGING REPORT ---
CHEST ONE VIEW PORTABLE CLINICAL HISTORY: Pt c/o SOB dyspnea COMPARISON STUDY: No previous studies for comparison. FINDINGS: Mild cardia megaly. Prominent pulmonary vasculature. Small left effusion. IMPRESSION: Mild congestive heart failure. Electronically signed by: Jeb Walker M.D. 10/18/2016 12:45 PM Dictated Date/Time: 10/18/2016 12:45 PM
[2016-10-18 13:10] LABS: BASO % 0.2 %; BASO ABS # 0.03 K/uL (0-0.2); EOS % 0.2 %; HEMATOCRIT 31.4 % (42-52); IG% 0.8 %; LYMPH % 13.1 %; LYMPH ABS # 2.16 K/uL (1.2-3.4); MEAN CELL VOLUME 80.7 fL (80-100); MEAN CORPUSCULAR HEMOGLOBIN 25.4 pg (25-34); MEAN CORPUSCULAR HGB CONC 31.5 g/dl (32-36); MEAN PLATELET VOLUME 9.9 fL (7.4-10.4); MONO % 12.1 %; NEUT % 73.6 %; PLATELET COUNT 204 K/uL (130-400); RED BLOOD COUNT 3.89 M/uL (4.7-6.1); WHITE BLOOD COUNT 16.49 K/uL (4.8-10.8)
[2016-10-18] MEDS ORDERED: FUROSEMIDE 40 MG/4 ML VIAL IV STA (13:18)
[2016-10-18 13:27] LABS: INR 1.5 (0.9-1.1); PROTHROMBIN TIME (PATIENT) 15.8 SECONDS (9.0-12.0)
[2016-10-18 13:32] LABS: ANISOCYTOSIS PRESENT; CALCIUM 8.6 mg/dl (8.5-10.1); COMPLETE YES; CREATININE 0.7 mg/dl (0.60-1.40); HYPOCHROMIA PRESENT; MICROCYTOSIS PRESENT; POLYCHROMASIA 2+; POTASSIUM 4.2 mmol/L (3.5-5.1)
[2016-10-18 13:41] LABS: ALB/GLOB RATIO 0.4 (0.9-2); CKMB/CK RATIO 0.4 (0-3.0)
[2016-10-18 13:41] LABS: URINE APPEARANCE CLOUDY (CLEAR); URINE COLOR DK YELLOW; URINE NITRITE NEG (NEG); URINE PH 5.5 (4.5-7.5); URINE SPECIFIC GRAVITY 1.026 (1.000-1.030); UROBILINOGEN NEG (NEG)
[2016-10-18 13:45] LABS: URINE BILIRUBIN 1+ (NEG)
[2016-10-18 13:48] LABS: MANUAL MICROSCOPIC REQUIRED? NO; REVIEW REQ? NO
[2016-10-18] MEDS ORDERED: OPTIRAY 320 IV PRN (14:45)
--- NOTE | 2016-10-18 15:08 | DIAGNOSTIC IMAGING REPORT ---
CT ANGIOGRAM OF THE CHEST CLINICAL HISTORY: 71 years-old Male presenting with chest pain. COMPARISON: 09/25/2016. TECHNIQUE: Multidetector CT angiography of the chest was performed following the administration of 100 milliliters of Optiray 320 using a pulmonary embolus protocol. 3-D maximal intensity projection (MIP) images were created for review. CT DOSE: 856.42 mGy.cm FINDINGS: Patient body habitus, respiratory motion, and suboptimal timing of the contrast bolus mildly limited evaluation for pulmonary embolus. Pulmonary vasculature: Allowing for limitations in image quality, no filling defect within the pulmonary arteries to suggest embolus. Main pulmonary artery enlarged measuring 3.5 cm in transverse dimension, which could suggest pulmonary hypertension. Remaining chest: On soft tissue windows, normal thyroid and thoracic inlet. No axillary, mediastinal, or hilar lymphadenopathy. Few prominent pericardial lymph nodes as on prior exam. Biatrial enlargement of the heart. Aortic valve, mitral annular, and coronary artery calcification. Aortic arch atherosclerosis. Normal three-vessel branching pattern of the aortic arch. No pericardial effusion. Small right pleural effusion. On lung windows, minimal dependent opacities in the right lung, likely atelectasis. Airways patent. On bone windows, degenerative changes of the thoracic spine noted. IMPRESSION: 1. Suboptimal evaluation of the pulmonary arterial tree. No central pulmonary embolus. Enlargement of the main pulmonary artery to suggest pulmonary hypertension. 2. No acute intrathoracic pathology. 3. Cardiomegaly. Electronically signed by: Moo Hayes 10/18/2016 3:07 PM Dictated Date/Time: 10/18/2016 2:52 PM
[2016-10-18 15:40] LABS: INFLUENZA A PCR Neg for Influ A (NEG); INFLUENZA B PCR Neg for Influ B (NEG)
[2016-10-18] MEDS ORDERED: ACETAMINOPHEN 325 MG TAB PO PRN (16:00)
[2016-10-18] MEDS ORDERED: ALUMINUM/MAGNESIUM/SIMETH (MAALOX MAX) 30 ML UDC PO PRN (16:00)
[2016-10-18] MEDS ORDERED: ONDANSETRON INJ 2 MG/ML 2 ML VIAL IV PRN (16:00)
[2016-10-18] MEDS ORDERED: POLYETHYLENE (MIRALAX) 17 GM PACK PO PRN (16:00)
[2016-10-18] MEDS ORDERED: MAGNESIUM HYDROXIDE SUSP 30 ML UDC PO PRN (16:00)
--- NOTE | 2016-10-18 16:27 | History and Physical ---
History & Physical Date & Time of Service: Oct 18, 2016 at 16:27 Chief Complaint: Shortness Of Breath Primary Care Physician: Aba Guajardo M.D. History of Present Illness Source: patient Mr. Breaux is a 71 y/o male with PMHx of HTN, Persistent Atrial Fibrillation, Peripheral Vascular Disease, and recent dx of Colon CA with Metastasis who presents to the ED c/o of progressive SOB x 3 weeks that has worsened 3-4 days ago. Patient follows with Dr. Brand and was referred to surgery next week for evaluation of his colon CA. He is not currently undergoing treatment at this time. Patient has had multiple hospital stays in September, mostly at other facilities. He was a direct admission from September 28- due to this new diagnosis of colon CA and concern for other underlying infection. Reviewed outside records that reports he had a cough last month and there was a consideration for bronchitis but no findings suggestive of a pneumonia. Also consideration for a possible diastolic CHF but echo per outside facility shows normal EF and no comment on diastolic abnormalities. He reports an almost constant cough and HPI was limited due to this non-stop coughing as it was hard for him to answer questions. He reports associated orthopnea and CAIN with only limited steps before becoming symptomatic. He denies fever/chills, CP, abdominal pain, N/V, dysuria, constipation/diarrhea, melena/hematochezia. He denies H/O respiratory disorders and no mention of lung mets on imaging. In the ED, patient was given Lasix 40 mg IV x 1 dose and Duoneb treatment. Patient reports improvement in SOB but no improvement in cough. He is afebrile and oxygenating adequately on RA. BNP 2193. D-Dimer 41680. Troponin 0.068. WBC of 16.49 which is trending down and present since last month thought to be related to CA. Hgb 9.9 which is stable from previous readings. LFTs elevated from previous admission. CTA negative for PE but evidence of pulmonary HTN. Patient will be admitted to telemetry for CHF. Family History No pertinent family history Limited history due to patient hard to participate due to coughing Social History Smoking Status: Never Smoker Smokeless Tobacco Use: No Alcohol Use: none Marital Status: single Occupational Status: retired Allergies Coded Allergies: No Known Allergies (Unverified , 09/28/16) Home Medications Scheduled Apixaban (Eliquis), 5 MG PO BID Cyanocobalamin (Vitamin B-12), 250 MCG PO DAILY Furosemide (Lasix), 40 MG PO BID Metolazone (Zaroxolyn), 2.5 MG PO DAILY Potassium Chloride Microencaps (Potassium Chloride Er), 1 TAB PO DAILY Spironolactone (Aldactone), 1 TAB PO DAILY Review of Systems Constitutional: + fatigue, No fever, No chills Eyes: No worsening of vision ENT: No nasal symptoms, No sore throat, No trouble swallowing Respiratory: + cough (nearly constant), + sputum (intermittent white), + dyspnea on exertion, + dyspnea at rest Cardiovascular: + orthopnea, No chest pain, No palpitations Abdomen: No pain, No nausea, No vomiting, No diarrhea, No constipation, No GI bleeding Musculoskeletal: + swelling (bilateral lower extremities - worsened), No calf pain Genitourinary - Male: No dysuria Hematologic / Lymphatic: No abnormal bleeding/bruising, No clotting problems Integumentary: No rash Physical Exam Vital Signs Date Time Temp Pulse Resp B/P (MAP) Pulse Ox O2 Delivery O2 Flow Rate FiO2 10/18/16 16:10 105 24 172/87 94 Room Air 10/18/16 14:31 129 26 169/98 93 Room Air 10/18/16 13:11 99 22 140/89 99 Nebulizer 10/18/16 13:03 104 18 94 Room Air 10/18/16 12:53 94 Room Air 10/18/16 12:53 94 Room Air 10/18/16 12:06 108 10/18/16 11:33 36.8 104 10 134/77 94 Room Air 10/18/16 11:33 94 Room Air General Appearance: + mild distress, + obese, + pertinent finding (chronically ill-appearing) Head: normocephalic, atraumatic Eyes: sclerae normal ENT: hearing grossly normal Neck: supple, no JVD, trachea midline Respiratory/Chest: no accessory muscle use, + respiratory distress (mild due to coughing causing short breaths), + rhonchi, + wheezing Cardiovascular: no gallop, + systolic murmur, + irregularly irregular Abdomen/GI: normal bowel sounds, non tender, soft, + distended (reports baseline size), + pertinent finding (tympanic on percussion) Extremities/Musculoskelatal: + swelling (chronic venous changes; mildly erythematous and warm; 2-3+ pitting edema) Neurologic/Psych: alert, oriented x 3 Skin: warm/dry, + pertinent finding (appears mildy jaundiced) Diagnostics Laboratory Results Results Past 24 Hours Test 10/18/16 00:00 10/18/16 12:52 10/18/16 13:02 Range/Units Urine Color DK YELLOW Urine Appearance CLOUDY CLEAR Urine pH 5.5 4.5-7.5 Urine Specific [place] 1.026 1.000-1.030 Urine Protein TRACE NEG Urine Glucose (UA) NEG NEG Urine Ketones NEG NEG Urine Occult Blood NEG NEG Urine Nitrite NEG NEG Urine Bilirubin 1+ NEG Urine Urobilinogen NEG NEG Urine Leukocyte Esterase NEG NEG Urine WBC (Auto) 1-5 0-5 /hpf Urine RBC (Auto) 0-4 0-4 /hpf Urine Hyaline Casts (Auto) 5-10 0-5 /lpf Urine Epithelial Cells (Auto) 10-20 0-5 /lpf Urine Bacteria (Auto) NEG NEG Influenza Type A (RT-PCR) Neg for Influ A NEG Influenza Type A Antigen Neg for Influ A NEG Influenza Type B Antigen Neg for Influ B NEG Influenza Type B (RT-PCR) Neg for Influ B NEG White Blood Count 16.49 4.8-10.8 K/uL Red Blood Count 3.89 4.7-6.1 M/uL Hemoglobin 9.9 14.0-18.0 g/dL Hematocrit 31.4 42-52 % Mean Corpuscular Volume 80.7 80-100 fL Mean Corpuscular Hemoglobin 25.4 25-34 pg Mean Corpuscular Hemoglobin Concent 31.5 32-36 g/dl Platelet Count 204 130-400 K/uL Mean Platelet Volume 9.9 7.4-10.4 fL Neutrophils (%) (Auto) 73.6 % Lymphocytes (%) (Auto) 13.1 % Monocytes (%) (Auto) 12.1 % Eosinophils (%) (Auto) 0.2 % Basophils (%) (Auto) 0.2 % Neutrophils # (Auto) 12.13 1.4-6.5 K/uL Lymphocytes # (Auto) 2.16 1.2-3.4 K/uL Monocytes # (Auto) 2.00 0.11-0.59 K/uL Eosinophils # (Auto) 0.04 0-0.5 K/uL Basophils # (Auto) 0.03 0-0.2 K/uL RDW Standard Deviation 59.2 36.4-46.3 fL RDW Coefficient of Variation 20.4 11.5-14.5 % Immature Granulocyte % (Auto) 0.8 % Immature Granulocyte # (Auto) 0.13 0.00-0.02 K/uL Polychromasia 2+ Hypochromasia PRESENT Anisocytosis PRESENT Microcytosis PRESENT Prothrombin Time 15.8 9.0-12.0 SECONDS Prothromb Time International Ratio 1.5 0.9-1.1 D-Dimer > 39253 0-500 ug/L FEU Sodium Level 135 136-145 mmol/L Potassium Level 4.2 3.5-5.1 mmol/L Chloride Level 96 98-107 mmol/L Carbon Dioxide Level 29 21-32 mmol/L Anion Gap 10.0 3-11 mmol/L Blood Urea Nitrogen 19 7-18 mg/dl Creatinine 0.70 0.60-1.40 mg/dl Est Creatinine Clear Calc Drug Dose 140.9 ml/min Estimated GFR () 109.3 Estimated GFR (Non- 94.3 BUN/Creatinine Ratio 27.0 10-20 Random Glucose 119 70-99 mg/dl Calcium Level 8.6 8.5-10.1 mg/dl Total Bilirubin 1.9 0.2-1 mg/dl Aspartate Amino Transf (AST/SGOT) 244 15-37 U/L Alanine Aminotransferase (ALT/SGPT) 89 12-78 U/L Alkaline Phosphatase 870 45-117 U/L Total Creatine Kinase 667 39-308 U/L Creatine Kinase MB 2.5 0.5-3.6 ng/ml Creatine Kinase MB Ratio 0.4 0-3.0 Troponin I 0.068 0-0.045 ng/ml Pro-B-Type Natriuretic Peptide 2193 0-900 pg/ml Total Protein 6.5 6.4-8.2 gm/dl Albumin 2.0 3.4-5.0 gm/dl Globulin 4.5 2.5-4.0 gm/dl Albumin/Globulin Ratio 0.4 0.9-2 Bedside D-Dimer > 450 0-450 ng/mlFEU Diagnostic Radiology CT ANGIOGRAM OF THE CHEST FINDINGS: Patient body habitus, respiratory motion, and suboptimal timing of the contrast bolus mildly limited evaluation for pulmonary embolus. Pulmonary vasculature: Allowing for limitations in image quality, no filling defect within the pulmonary arteries to suggest embolus. Main pulmonary artery enlarged measuring 3.5 cm in transverse dimension, which could suggest pulmonary hypertension. Remaining chest: On soft tissue windows, normal thyroid and thoracic inlet. No axillary, mediastinal, or hilar lymphadenopathy. Few prominent pericardial lymph nodes as on prior exam. Biatrial enlargement of the heart. Aortic valve, mitral annular, and coronary artery calcification. Aortic arch atherosclerosis. Normal three-vessel branching pattern of the aortic arch. No pericardial effusion. Small right pleural effusion. On lung windows, minimal dependent opacities in the right lung, likely atelectasis. Airways patent. On bone windows, degenerative changes of the thoracic spine noted. IMPRESSION: 1. Suboptimal evaluation of the pulmonary arterial tree. No central pulmonary embolus. Enlargement of the main pulmonary artery to suggest pulmonary hypertension. 2. No acute intrathoracic pathology. 3. Cardiomegaly. EKG Atrial fibrillation with rapid ventricular response Right axis deviation Low voltage QRS Septal infarct , age undetermined Abnormal ECG No previous ECGs available Impression Assessment and Plan Mr. Breaux is a 71 y/o male with PMHx of HTN, Persistent Atrial Fibrillation, Peripheral Vascular Disease, and recent dx of Colon CA with Metastasis who presents to the ED c/o of progressive SOB x 3 weeks that has worsened 3-4 days ago. Congestive Heart Failure: Unknown Type - Echo results reported from outside facility - EF 55% with concentric hypertrophy, mild , mild MR - no mention of diastolic dysfunction - Obtain new echocardiogram - Given Lasix 40 mg IV x 1 dose in ED and will give a dose of 40 mg IV tonight - HOld home Lasix, Metalozone, and Spironolactone - I&O and daily weights - Nitroglycerin 2% 0.5 inch Q6H - findings of pulmonary HTN on imaging Wheezing: - No reports of respiratory issues - hard to fully gauge lungs sounds do to frequent coughing - concern for cardiac wheeze? - Xopenex and Atrovent to try and prevent tachycardia Intractable Cough: - Cough is nearly constant somewhat similar to a lisinopril cough; mimics somewhat of a hiccup-like occurrence - Thorazine 25 mg Q6H and Hydrocodone/Homatropine 5 mL Q4H Persistent Atrial Fibrillation with RVR: Follows with Dr. Logan - Anticoagulated with Eliquis 5 mg BID - Is not on any rate control medications or antiarrhythmics and patient does not think he was on anything in the past - Metoprolol 5 mg IV PRN for tachycardia Elevated Troponin: - Serial cardiac enzymes - likely mild increase could be related to demand ischemia from mild CHF and AFib RVR Transaminitis: - Known liver metastasis but acute increase in liver function testing - will monitor - consideration for further imaging in AM Chronic Anemia: - Values are low normal - microcytic vs anemia of chronic disease - given colon CA likely chronic blood loss - Hemoglobin stable in 9.9-10 range which is consistent with previous admission and outside records - continue to monitor HTN: - Hold diuretics and add PRN hydralazine Chronic Venous Insufficiency: - BLE edema and erythema - even though presence of leukocytosis I have a low suspicion this is an active cellulitis -- Leukocytosis has been elevated and actually trending down without antibiotics and previous admission it was thought to be related to CA process - He does report worsening of edema at this time - Outside records reviewed that this was a concern last month and he was treated with Azithromycin and Doxycycline as an outpatient and then admitted and switched to Vancomycin, Cefepime, and Clindamycin - Will continue to monitor and can add antibiotics but will monitor off Abx at this time DVT Prophylaxis: Eliquis Code Status: FULL RESUSCITATION Disposition: - Obtain last note from digital publishing specialist - Dr. Logan - will likely need F/U prior to surgery for risk stratification - PT/OT evaluations Level of Care Telemetry Resuscitation Status FULL RESUSCITATION VTE Prophylaxis VTE Risk Assessment Done? Y/N: Yes Risk Level: Moderate Given or contraindicated: Other Anticoagulation (Eliquis) Assessment and Plan Attending Addendum: I have physically seen and examined this patient, have directed the physician assistants medical extremities, and agree with the H&P as noted above with the following exceptions: NONE The patient is awake, well-developed and adequately nourished, alert and oriented 3, normocephalic and atraumatic, lying in bed and in mild acute distress. HEENT--PERRL, EOMI, mucous membranes and oropharynx dry. Neck--supple, no JVD or bruits, thyroid normal, trachea midline, no adenopathy. Heart--irregularly irregular, no murmurs, rubs or gallops. Lungs--crackles at the bases bilaterally, no respiratory distress, no accessory muscle use. Abdomen--normal bowel sounds and soft, nontender and nondistended, no hernias or masses, no organomegaly. Extremities--no cyanosis, clubbing. Trace pitting bilateral pretibial Edema. There are good distal pulses b/l. Dermatologic--normal skin turgor, normal color, warm and dry, no abnormal lymph nodes, no rash. Neurologic--cranial nerves II through XII grossly intact, motor and sensory examination normal. Rheumatologic--normal range of motion Psychiatric--normal affect. Assessment and Plan: 1. Acute CHF exacerbation, likely diastolic, with normal ejection fraction of 55%/mild /mild MR/atrial flutter with RVR--the patient will be admitted to the telemetry for serial cardiac enzymes, cardiac rhythm monitoring and a 2-D echocardiogram with Dopplers. Place on Lasix 40 mg IV every morning, and hold outpatient dosages of Lasix, metolazone and spironolactone and hydralazine. Nitropaste 1/2 inch anterior chest wall every 6 hours. Continue Eliquis 5 mg by mouth twice a day. Lopressor 5 mg IV every 4 hours when necessary heart rate greater than 110.
[2016-10-18] MEDS ORDERED: CHLORPROMAZINE HCL 25 MG TAB PO SCH (17:00)
[2016-10-18] MEDS ORDERED: LEVALBUTEROL/IPRATROPIUM NEB INH PRN (17:00)
[2016-10-18] MEDS ORDERED: IPRATROPIUM BROMIDE NEB SOLN 0.02% 2.5 ML VIAL INH PRN (17:15)
[2016-10-18] MEDS ORDERED: LEVALBUTEROL 1.25MG/0.5ML NEB INH PRN (17:15)
[2016-10-18] MEDS ORDERED: HydrALAZINE HCL 20 MG/ML VIAL IV. PRN (17:30)
[2016-10-18] MEDS ORDERED: NURSING VERBAL MED ORDER ONE (19:00)
[2016-10-18] MEDS: LEVALBUTEROL 1.25MG/0.5ML NEB INH SCH (19:42)
[2016-10-18] MEDS: IPRATROPIUM BROMIDE NEB SOLN 0.02% 2.5 ML VIAL INH SCH (19:42)
[2016-10-18] MEDS: NITROGLYCERIN OINT 2% 1GM PACKET EXT SCH ×2 (19:53→23:57)
[2016-10-18] MEDS: APIXABAN 2.5 MG TAB PO SCH (19:53)
[2016-10-18 20:20] LABS: CKMB/CK RATIO 0.4 (0-3.0)
[2016-10-18] MEDS: METOPROLOL TARTRATE 1 MG/ML VIAL IV PRN (20:49)
[2016-10-18] MEDS: HYDROCODONE/HOMATROPINE SYRUP 5MG/1.5MG 5ML UDP PO PRN (20:54)
[2016-10-18] MEDS ORDERED: FUROSEMIDE INJ 40 MG in SYRINGE 0 ML IV SCH (21:00)
[2016-10-18] MEDS ORDERED: LEVALBUTEROL/IPRATROPIUM NEB INH SCH (21:00)
[2016-10-18] MEDS: CHLORPROMAZINE HCL 25 MG TAB PO SCH (23:57)
[2016-10-19] VITALS (14 sets, daily range): BP systolic 113–155; BP diastolic 62–78; PULSE 98–133; TEMP 36.3–36.9; O2SAT 85–96
[2016-10-19] MEDS: LEVALBUTEROL 1.25MG/0.5ML NEB INH SCH ×4 (01:38→19:34)
[2016-10-19] MEDS: IPRATROPIUM BROMIDE NEB SOLN 0.02% 2.5 ML VIAL INH SCH ×4 (01:38→19:34)
[2016-10-19 01:46] LABS: BUN/CREATININE RATIO 27.9 (10-20); CALCIUM 7.9 mg/dl (8.5-10.1); CREATININE 0.81 mg/dl (0.60-1.40); MAGNESIUM 2.1 mg/dl (1.8-2.4); POTASSIUM 4.7 mmol/L (3.5-5.1)
[2016-10-19 01:51] LABS: ALB/GLOB RATIO 0.4 (0.9-2); CHOLESTEROL/HDL RATIO 12.4; CKMB/CK RATIO 0.3 (0-3.0)
[2016-10-19 02:03] LABS: HEMATOCRIT 27.4 % (42-52); MEAN CELL VOLUME 79.9 fL (80-100); MEAN CORPUSCULAR HEMOGLOBIN 25.4 pg (25-34); MEAN CORPUSCULAR HGB CONC 31.8 g/dl (32-36); MEAN PLATELET VOLUME 9.2 fL (7.4-10.4); PLATELET COUNT 170 K/uL (130-400); RED BLOOD COUNT 3.43 M/uL (4.7-6.1); WHITE BLOOD COUNT 16.78 K/uL (4.8-10.8)
[2016-10-19] MEDS: CHLORPROMAZINE HCL 25 MG TAB PO SCH (06:20)
[2016-10-19] MEDS: NITROGLYCERIN OINT 2% 1GM PACKET EXT SCH ×2 (06:20→11:03)
[2016-10-19] MEDS: POTASSIUM CHLORIDE 20 MEQ TABCR PO SCH (07:31)
[2016-10-19] MEDS: APIXABAN 2.5 MG TAB PO SCH ×2 (07:31→21:22)
[2016-10-19] MEDS: CYANOCOBALAMIN 500 MCG TAB (VIT B-12) PO SCH (07:31)
[2016-10-19 08:48] LABS: HEMATOCRIT 31.4 % (42-52)
[2016-10-19] MEDS ORDERED: FUROSEMIDE 40 MG TAB PO ONE (12:52)
--- NOTE | 2016-10-19 13:04 | Hospitalist Progress Note ---
Hospitalist Progress Note Date of Service Oct 19, 2016. (Billie Suh, ANNABELLAC) Subjective Pt evaluation today including: conversation w/ patient, physical exam, chart review, lab review, review of studies, review of inpatient medication list Patient seen and evaluated. Coughing has improved but reporting feeling drowsy which may be the Thorazine. Will change to PRN if her experiences this intractable cough again. He reports that his SOB has improved but has not really been up and moving to assess CAIN. Feels like he can start to be weaned off O2. Hgb dropped from 9.9 to 8.7 but recheck was 9.6 which is consistent with previous labs and will monitor. Diuresed for a neg 3300 and reporting some improvement in lower extremity edema. Constitutional: No fever, No chills Respiratory: + cough (intermittent but improving), + sputum, No shortness of breath Cardiovascular: No chest pain Abdomen: No pain, No nausea, No vomiting, No diarrhea, No constipation Musculoskeletal: No swelling, No calf pain (Billie Suh, CALLIE-C) Medications Current Inpatient Medications Medications (Trade) Dose Ordered Sig/Carley Route Start Time Stop Time Status Last Admin Dose Admin Ioversol (Optiray 320) 125 ml UD PRN IV 10/18/16 14:45 10/22/16 14:44 Acetaminophen (Tylenol Tab) 650 mg Q4H PRN PO 10/18/16 16:00 11/17/16 15:59 Al Hydrox/Mg Hydrox/Simethicone (Maalox Max Susp) 15 ml Q4H PRN PO 10/18/16 16:00 11/17/16 15:59 Magnesium Hydroxide (Milk Of Magnesia Susp) 30 ml Q12H PRN PO 10/18/16 16:00 11/17/16 15:59 Ondansetron HCl (Zofran Inj) 4 mg Q6H PRN IV 10/18/16 16:00 11/17/16 15:59 Polyethylene (Miralax Powder Packet) 17 gm DAILY PRN PO 10/18/16 16:00 11/17/16 15:59 Cyanocobalamin (Vitamin B-12 Tab) 250 mcg DAILY PO 10/19/16 09:00 11/18/16 08:59 10/19/16 07:31 250 MCG Potassium Chloride (Klor-Con Tab) 20 meq DAILY PO 10/19/16 09:00 11/18/16 08:59 10/19/16 07:31 20 MEQ Apixaban (Eliquis Tab) 5 mg BID PO 10/18/16 21:00 11/17/16 20:59 10/19/16 07:31 5 MG Hydrocodone Bit/ Homatropine Methylb (Hycodan Syrup) 5 ml Q4H PRN PO 10/18/16 16:30 11/01/16 16:29 10/18/16 20:54 5 ML Nitroglycerin (Nitroglycerin 2% Oint) 0.5 inch Q6 EXT 10/18/16 18:00 11/17/16 17:59 10/19/16 11:03 0.5 INCH Ipratropium [place] (Atrovent 0.02% 0.5MG/2.5ML Neb) 0.5 mg Q2H PRN INH 10/18/16 17:15 11/17/16 17:14 Levalbuterol (Xopenex 1.25MG/ 0.5ML Neb) 1.25 mg Q2H PRN INH 10/18/16 17:15 11/17/16 17:14 Ipratropium [place] (Atrovent 0.02% 0.5MG/2.5ML Neb) 0.5 mg Q6R INH 10/18/16 21:00 11/17/16 20:59 10/19/16 07:10 0.5 MG Levalbuterol (Xopenex 1.25MG/ 0.5ML Neb) 1.25 mg Q6R INH 10/18/16 21:00 11/17/16 20:59 10/19/16 07:10 1.25 MG Metoprolol Tartrate (Lopressor Iv) 5 mg Q4 PRN IV 10/18/16 17:30 11/17/16 17:29 10/18/16 20:49 5 MG Hydralazine HCl (HydrALAZINE INJ) 10 mg Q6 PRN IV. 10/18/16 17:30 11/17/16 17:29 Chlorpromazine HCl (Thorazine Tab) 25 mg Q6 PRN PO 10/19/16 12:00 11/18/16 00:00 (Billie Suh PA-C) Objective Vital Signs Date Time Temp Pulse Resp B/P (MAP) Pulse Ox O2 Delivery O2 Flow Rate FiO2 10/19/16 12:15 95 Nasal Cannula 2.0 10/19/16 11:11 36.3 111 20 124/65 (84) 92 2.0 10/19/16 08:43 95 Nasal Cannula 2.0 10/19/16 07:40 36.5 119 20 155/78 (103) 95 Nasal Cannula 2.0 10/19/16 07:11 101 18 96 Nasal Cannula 2.0 10/19/16 04:00 Nasal Cannula 4.0 10/19/16 03:21 36.9 107 22 147/74 (98) 95 10/19/16 01:38 104 18 94 Nasal Cannula 4.0 10/19/16 00:00 Nasal Cannula 4.0 10/18/16 23:53 36.5 102 24 128/73 (91) 93 2.0 10/18/16 20:49 120 123/70 10/18/16 20:00 92 Nasal Cannula 2.0 10/18/16 19:42 112 18 94 Nasal Cannula 4.0 10/18/16 19:08 37.2 114 23 132/57 (82) 93 Nasal Cannula 4.0 10/18/16 18:15 36.7 115 24 128/71 95 Nasal Cannula 2.0 10/18/16 17:45 93 Nasal Cannula 4.0 10/18/16 17:42 36.8 120 26 160/65 (96) 87 Room Air 10/18/16 16:10 105 24 172/87 94 Room Air 10/18/16 14:31 129 26 169/98 93 Room Air 10/18/16 13:11 99 22 140/89 99 Nebulizer 10/18/16 13:03 104 18 94 Room Air 10/18/16 12:53 94 Room Air 10/18/16 12:53 94 Room Air (Billie Suh PA-C) Physical Exam General Appearance: WD/WN, no apparent distress, + obese, + pertinent finding ( chronically ill-appearing) Eyes: sclerae normal Neck: supple, no JVD, trachea midline Respiratory/Chest: no respiratory distress, no accessory muscle use, + decreased breath sounds Cardiovascular: + systolic murmur, + irregularly irregular Abdomen: normal bowel sounds, non tender, soft, + distended Extremities: + pertinent finding (chronic venous changes with bilateral pitting edema 2+) Neurologic/Psychiatric: alert, oriented x 3, + pertinent finding (drowsy) Skin: normal color, warm/dry (Billie Suh, CHRIS) Laboratory Results Last 24 Hours Test 10/18/16 12:52 10/18/16 13:02 10/18/16 19:10 10/19/16 00:58 White Blood Count 16.49 K/uL Red Blood Count 3.89 M/uL Hemoglobin 9.9 g/dL Hematocrit 31.4 % Mean Corpuscular Volume 80.7 fL Mean Corpuscular Hemoglobin 25.4 pg Mean Corpuscular Hemoglobin Concent 31.5 g/dl Platelet Count 204 K/uL Mean Platelet Volume 9.9 fL Neutrophils (%) (Auto) 73.6 % Lymphocytes (%) (Auto) 13.1 % Monocytes (%) (Auto) 12.1 % Eosinophils (%) (Auto) 0.2 % Basophils (%) (Auto) 0.2 % Neutrophils # (Auto) 12.13 K/uL Lymphocytes # (Auto) 2.16 K/uL Monocytes # (Auto) 2.00 K/uL Eosinophils # (Auto) 0.04 K/uL Basophils # (Auto) 0.03 K/uL RDW Standard Deviation 59.2 fL RDW Coefficient of Variation 20.4 % Immature Granulocyte % (Auto) 0.8 % Immature Granulocyte # (Auto) 0.13 K/uL Polychromasia 2+ Hypochromasia PRESENT Anisocytosis PRESENT Microcytosis PRESENT Prothrombin Time 15.8 SECONDS Prothromb Time International Ratio 1.5 D-Dimer > 09678 ug/L FEU Sodium Level 135 mmol/L 137 mmol/L Potassium Level 4.2 mmol/L 4.7 mmol/L Chloride Level 96 mmol/L 97 mmol/L Carbon Dioxide Level 29 mmol/L 30 mmol/L Anion Gap 10.0 mmol/L 10.0 mmol/L Blood Urea Nitrogen 19 mg/dl 23 mg/dl Creatinine 0.70 mg/dl 0.81 mg/dl Est Creatinine Clear Calc Drug Dose 140.9 ml/min 121.4 ml/min Estimated GFR () 109.3 102.9 Estimated GFR (Non- 94.3 88.8 BUN/Creatinine Ratio 27.0 27.9 Random Glucose 119 mg/dl 142 mg/dl Calcium Level 8.6 mg/dl 7.9 mg/dl Total Bilirubin 1.9 mg/dl 1.5 mg/dl Aspartate Amino Transf (AST/SGOT) 244 U/L 189 U/L Alanine Aminotransferase (ALT/SGPT) 89 U/L 76 U/L Alkaline Phosphatase 870 U/L 714 U/L Total Creatine Kinase 667 U/L 632 U/L 599 U/L Creatine Kinase MB 2.5 ng/ml 2.3 ng/ml 1.7 ng/ml Creatine Kinase MB Ratio 0.4 0.4 0.3 Troponin I 0.068 ng/ml 0.063 ng/ml 0.061 ng/ml Pro-B-Type Natriuretic Peptide 2193 pg/ml Total Protein 6.5 gm/dl 5.9 gm/dl Albumin 2.0 gm/dl 1.8 gm/dl Globulin 4.5 gm/dl 4.1 gm/dl Albumin/Globulin Ratio 0.4 0.4 Bedside D-Dimer > 450 ng/mlFEU Magnesium Level 2.1 mg/dl Triglycerides Level 112 mg/dl Cholesterol Level 112 mg/dl HDL Cholesterol 9 mg/dl LDL Cholesterol, Calculated 81 mg/dl VLDL Cholesterol, Calculated 22 mg/dl Cholesterol/HDL Ratio 12.4 Chemistry Specimen Hemolysis Test 10/19/16 01:55 10/19/16 08:00 White Blood Count 16.78 K/uL Red Blood Count 3.43 M/uL Hemoglobin 8.7 g/dL 9.6 g/dL Hematocrit 27.4 % 31.4 % Mean Corpuscular Volume 79.9 fL Mean Corpuscular Hemoglobin 25.4 pg Mean Corpuscular Hemoglobin Concent 31.8 g/dl RDW Standard Deviation 58.2 fL RDW Coefficient of Variation 20.4 % Platelet Count 170 K/uL Mean Platelet Volume 9.2 fL (Billie Suh, PARemingtonC) Assessment and Plan Mr. Breaux is a 71 y/o male with PMHx of HTN, Persistent Atrial Fibrillation, Peripheral Vascular Disease, and recent dx of Colon CA with Metastasis who presents to the ED c/o of progressive SOB x 3 weeks that has worsened 3-4 days ago. Congestive Heart Failure with Pulmonary HTN: Diastolic? - Echo results reported from outside facility - EF 55% with concentric hypertrophy, mild , mild MR - no mention of diastolic dysfunction - Echo - pending - Given Lasix 40 mg IV x 2 doses -- diuresed -3300 and respiratory exam was clear but diminished throughout - Lasix 40 mg BID, Metalozone 2.5 mg daily, and Spironolactone 50 mg daily - I&O and daily weights - Monitor electrolytes and replete as necessary - Amlodipine 2.5 mg daily Wheezing: RESOLVED - Xopenex and Atrovent Intractable Cough: IMPROVED - Thorazine 25 mg Q6H PRN and Hydrocodone/Homatropine 5 mL Q4H PRN -- Patient reporting feeling more drowsy and suspect possibly from these medications Persistent Atrial Fibrillation with RVR: Follows with Dr. Logan - Anticoagulated with Eliquis 5 mg BID - Is not on any rate control medications or antiarrhythmics and patient does not think he was on anything in the past - Metoprolol 5 mg IV PRN for tachycardia Elevated Troponin: TRENDING DOWN - Serial cardiac enzymes - likely mild increase could be related to demand ischemia from mild CHF and AFib RVR Transaminitis: TRENDING DOWN - Known liver metastasis but acute increase in liver function testing - will monitor Chronic Anemia: - Values are low normal - microcytic vs anemia of chronic disease - given colon CA likely chronic blood loss - Hemoglobin stable in 9.9-10 range which is consistent with previous admission and outside records - continue to monitor HTN: - Only on diuretic therapy as above Chronic Venous Insufficiency: - BLE edema and erythema - even though presence of leukocytosis I have a low suspicion this is an active cellulitis -- Leukocytosis has been elevated and actually trending down without antibiotics and previous admission it was thought to be related to CA process - Outside records reviewed that this was a concern last month and he was treated with Azithromycin and Doxycycline as an outpatient and then admitted and switched to Vancomycin, Cefepime, and Clindamycin - Will continue to monitor and can add antibiotics if deemed necessary DVT Prophylaxis: Eliquis Code Status: FULL RESUSCITATION Disposition: - Obtain last note from commercial designer - Dr. Logan - will likely need F/U prior to surgery for risk stratification -- Would like to review last visit as patient would benefit from rate control measures senior care - PT/OT evaluations Continued [facility] stay due to: multiple IV medications needed Discharge planning: uncertain (Billie Suh PA-C) Reviewed: Pt Seen/Exam by Me (Ambika Madison, ) History Pt has not been OOB much. No SOB at rest. No chest pain. Tolerating PO. Agree with HPI/ROS as noted. (Ambika Madison, ) General Appearance: no apparent distress, obese Eye Exam: bilateral eye normal inspection, bilateral eye EOMI Respiratory: no respiratory distress, decreased breath sounds, crackles (scant) Cardiovascular: normal peripheral pulses, regular rate, rhythm Gastrointestinal: non tender, soft Extremities: non-tender, no pedal edema Neurologic/Psychiatric: alert, normal mood/affect Skin Characteristics: normal color, warm/dry (Ambika Madison DO) Assessment/Plan Agree with plan as outlined above SOB/CAIN: possibly related to CHF status, however not overly fluid overload Continue home diuretics ?? pulm HTN, ECHO noted for severe RA dilation with tr TR, pressure not reported and will discuss with cardiology tomorrow CTA neg for PE and ? of pulm HTN noted UA neg on arrival, however nursing with concerns for foul smelling/appearing urine now. Repeat UA (Ambika Madison, )
[2016-10-19] MEDS ORDERED: AMLODIPINE BESYLATE 5 MG TAB PO ONE (14:09)
[2016-10-19] MEDS: CHLORPROMAZINE HCL 25 MG TAB PO PRN (15:23)
[2016-10-19] MEDS: METOPROLOL TARTRATE 1 MG/ML VIAL IV PRN (15:43)
--- NOTE | 2016-10-19 16:51 | ECHOCARDIOGRAM REPORT ---
*NOTICE TO RECEIVING [employer] This information is strictly Confidential and protected under [place] law. [place] law prohibits you from making any further disclosure of this information unless further disclosure is expressly permitted by the written consent of the person to whom it pertains or is authorized by law. A general authorization for the release of medical or other information is not sufficient for this purpose. Hospital accepts no responsibility if the information is made available to any other person, INCLUDING THE PATIENT. Interpretation Summary * Name: JUAN FARMER Study Date: 10/19/2016 03:33 PM BP: 147/74 mmHg * Patient Location: C.2T\S\S242\S\2 HR: 137 * : 1945 (M/d/yyy) Gender: Male Height: 74 in * Age: 71 yrs Ethnicity: CA Weight: 303 lb * Ordering Physician: Billie Suh * Referring Physician: Self, Referred * Performed By: Hussein Glaser RCS * * Reason For Study: CHF * BSA: 2.6 m2 * -- Conclusions -- * 1. Technically limited study despite use Definity ultrasound contrast. * 2. Grossly normal LV size, borderline LV wall thickness. * 3. Low normal LV function. LVEF 45-50%. Cannot exclude regional wall motion abnormalities. * 4. Normal RV size, mildly reduced function. * 5. Mild aortic stenosis * 6. Mild mitral regurgitation, mild mitral stenosis. * 7. Severely dilated RA. Moderately dilated LA. * 8. No prior studies for comparison. Procedure Details * A contrast injection of Definity was performed to improve assessment of LV function. * Contrast was injected into an intravenous site in the left arm. * One vial of Definity ultrasound contrast was diluted in normal saline to a total volume of 10 ml. A total of '4' ml of solution was administered during imaging. * Lot # [id number] of Definity utilized for procedure. * Expiration date 1AUG18. * The attending nurse who injected the contrast agent was QUINTON MAI RN. Left Ventricle * The left ventricle is grossly normal size. * There is borderline concentric left ventricular hypertrophy. * Ejection Fraction = 45-50%. * Regional wall motion abnormalities cannot be excluded due to limited visualization. Right Ventricle * The right ventricle is grossly normal size. * The right ventricular systolic function is mildly reduced. Atria * The left atrium is moderately dilated. * The right atrium is severely dilated. * No ASD detected; PFO is not assessed. Mitral Valve * There is moderate mitral annular calcification. * There is mild mitral stenosis. * There is trace mitral regurgitation. Tricuspid Valve * The tricuspid valve is not well visualized, but is grossly normal. * There is trace tricuspid regurgitation. Aortic Valve * The aortic valve opens well. * Mild valvular aortic stenosis. * There is no significant aortic regurgitation. Pulmonic Valve * The pulmonary valve is inadequately visualized, but the Doppler data is adequate for interpretation. * Pulmonic stenosis is absent. * There is no significant pulmonary regurgitation. Great Vessels * The aortic root and proximal ascending aorta are normal sized. Pericardium/Pleural * There is no pericardial effusion. MMode 2D Measurements and Calculations IVSd 1.1 cm LVIDd 6.4 cm LVIDs 4.8 cm LVPWd 1.2 cm IVS/LVPW 0.92 FS 24.3 % EDV(Teich) 205.2 ml ESV(Teich) 108.1 ml EF(Teich) 47.3 % EDV(cubed) 256.6 ml ESV(cubed) 111.3 ml EF(cubed) 56.6 % LV mass(C)d 339.9 grams LV mass(C)dI 131.1 grams/m\S\2 SV(Teich) 97.1 ml SI(Teich) 37.4 ml/m\S\2 SV(cubed) 145.3 ml SI(cubed) 56.0 ml/m\S\2 Ao root diam 3.1 cm Ao root area 7.5 cm\S\2 asc Aorta Diam 2.9 cm LVOT diam 1.9 cm LVOT area 2.7 cm\S\2 Doppler Measurements and Calculations MV P1/2t max ruben 224.8 cm/sec MV P1/2t 89.5 msec MVA(P1/2t) 2.5 cm\S\2 MV dec slope 735.7 cm/sec\S\2 Ao V2 max 267.1 cm/sec Ao max PG 28.6 mmHg Ao max PG (full) 20.6 mmHg Ao V2 mean 202.6 cm/sec Ao mean PG 18.0 mmHg Ao mean PG (full) 12.9 mmHg Ao V2 VTI 55.7 cm JOSE C(I,A) 1.6 cm\S\2 JOSE C(I,D) 1.6 cm\S\2 JOSE C(V,A) 1.4 cm\S\2 JOSE C(V,D) 1.4 cm\S\2 LV V1 max PG 7.9 mmHg LV V1 mean PG 5.0 mmHg LV V1 max 140.2 cm/sec LV V1 mean 105.1 cm/sec LV V1 VTI 32.9 cm SV(Ao) 415.6 ml SI(Ao) 160.3 ml/m\S\2 SV(LVOT) 88.6 ml SI(LVOT) 34.2 ml/m\S\2
[2016-10-19] MEDS: FUROSEMIDE 40 MG TAB PO SCH (17:13)
[2016-10-19] MEDS ORDERED: PERFLUTREN LIPID MICROSPHERE (DEFINITY) IV ONE (18:54)
[2016-10-20] VITALS (12 sets, daily range): BP systolic 107–145; BP diastolic 61–78; PULSE 83–138; TEMP 36.4–37.4; O2SAT 91–97
[2016-10-20] MEDS: LEVALBUTEROL 1.25MG/0.5ML NEB INH SCH ×2 (01:46→06:47)
[2016-10-20] MEDS: IPRATROPIUM BROMIDE NEB SOLN 0.02% 2.5 ML VIAL INH SCH ×2 (01:46→06:47)
[2016-10-20] MEDS: HYDROCODONE/HOMATROPINE SYRUP 5MG/1.5MG 5ML UDP PO PRN ×2 (03:09→21:28)
[2016-10-20] MEDS: METOPROLOL TARTRATE 1 MG/ML VIAL IV PRN ×2 (03:12→12:41)
[2016-10-20] MEDS ORDERED: NURSING VERBAL MED ORDER ONE ×2 (03:45)
[2016-10-20] MEDS ORDERED: BENZONATATE 100MG CAP PO PRN (03:45)
[2016-10-20] MEDS: BENZONATATE 100MG CAP PO PRN ×3 (04:37→17:49)
[2016-10-20] MEDS: FUROSEMIDE 40 MG TAB PO SCH ×2 (07:54→17:41)
[2016-10-20] MEDS: METOLAZONE 2.5 MG TAB PO SCH (07:54)
[2016-10-20] MEDS: SPIRONOLACTONE 25 MG TAB PO SCH (07:55)
[2016-10-20] MEDS: APIXABAN 2.5 MG TAB PO SCH ×2 (07:55→21:27)
[2016-10-20] MEDS: AMLODIPINE BESYLATE 5 MG TAB PO SCH (07:56)
[2016-10-20] MEDS: CYANOCOBALAMIN 500 MCG TAB (VIT B-12) PO SCH (07:56)
[2016-10-20 08:59] LABS: HEMATOCRIT 28.9 % (42-52); MEAN CELL VOLUME 81.2 fL (80-100); MEAN CORPUSCULAR HEMOGLOBIN 25.3 pg (25-34); MEAN CORPUSCULAR HGB CONC 31.1 g/dl (32-36); MEAN PLATELET VOLUME 9.6 fL (7.4-10.4); PLATELET COUNT 142 K/uL (130-400); RED BLOOD COUNT 3.56 M/uL (4.7-6.1)
[2016-10-20 09:46] LABS: ALB/GLOB RATIO 0.4 (0.9-2); BUN/CREATININE RATIO 27.3 (10-20); CREATININE 0.71 mg/dl (0.60-1.40); MAGNESIUM 1.9 mg/dl (1.8-2.4)
[2016-10-20 09:48] LABS: POTASSIUM 3.5 mmol/L (3.5-5.1)
[2016-10-20] MEDS: POTASSIUM CHLORIDE 20 MEQ TABCR PO SCH (09:56)
[2016-10-20] MEDS ORDERED: COUGH DROP (SUGAR FREE) LOZ 24 LOZ/1 BOX ONE (12:34)
--- NOTE | 2016-10-20 12:42 | Cardiology Consultation ---
Cardiology Consultation Date of Consultation: Oct 20, 2016. Requesting Physician: Dr. Suh Reason for Consultation: Shortness of breath Pt evaluation today including: conversation w/ patient, physical exam, lab review, review of studies, review of inpatient medication list History of Present Illness This is a 71-year-old gentleman who presented to the emergency room with progressive shortness of breath. He has a history of colon cancer which is undergoing evaluation currently. He also had a cardiac catheterization performed in May 2016 which demonstrated noncritical coronary artery disease. This was done for an abnormal stress test according to the report, he denies having any symptoms prior to that. He also has a history of permanent atrial fibrillation and is on Eliquis. He believes he has been in atrial fibrillation for 20 years, he tells me that he is not on any medications (including anticoagulation) until recently when warfarin was started, subsequently changed to Eliquis. He seems to be tolerating the Eliquis well. He reports having no difficulty with activity as of several weeks to month ago, then developing a lot of coughing and upper abdominal discomfort and possibly shortness of breath. When asked about her shortness of breath he relates abdominal discomfort and coughing, I'm not clear that he actually has difficulty breathing. He denies chest discomfort or wheezing. Evaluation in the hospital included a chest x-ray and BNP which does suggest congestive heart failure, his echocardiogram done 10/19/2016 shows a low normal left ventricular ejection fraction of 45-50% with mild aortic stenosis and mild mitral regurgitation. He has a severely dilated right atrium. Past Medical/Surgical History (1) Colon cancer Family History No pertinent family history Social History Smoking Status: Never Smoker History of Alcohol Use: No Review of Systems Constitutional: No fever, No weight loss, No weakness Respiratory: + cough (intermittent but improving), + sputum, + shortness of breath Cardiac: No chest pain Abdomen: No pain, No nausea, No vomiting, No diarrhea, No GI bleeding Male : No urinary frequency, No nocturia more than once/night, No slowing stream, No sexual dysfunction Neurologic: No paralysis, No weakness, No numbness/tingling, No balance problems Heme: No abnormal bleeding/bruising, No clotting problems Endo: No fatigue Skin: No problem reported All Other Systems: Reviewed and Negative Allergies Coded Allergies: No Known Allergies (Unverified , 09/28/16) Medications Current Inpatient Medications Medications (Trade) Dose Ordered Sig/Carley Route Start Time Stop Time Status Last Admin Dose Admin Ioversol (Optiray 320) 125 ml UD PRN IV 10/18/16 14:45 10/22/16 14:44 Acetaminophen (Tylenol Tab) 650 mg Q4H PRN PO 10/18/16 16:00 11/17/16 15:59 Al Hydrox/Mg Hydrox/Simethicone (Maalox Max Susp) 15 ml Q4H PRN PO 10/18/16 16:00 11/17/16 15:59 Magnesium Hydroxide (Milk Of Magnesia Susp) 30 ml Q12H PRN PO 10/18/16 16:00 11/17/16 15:59 Ondansetron HCl (Zofran Inj) 4 mg Q6H PRN IV 10/18/16 16:00 11/17/16 15:59 Polyethylene (Miralax Powder Packet) 17 gm DAILY PRN PO 10/18/16 16:00 11/17/16 15:59 Cyanocobalamin (Vitamin B-12 Tab) 250 mcg DAILY PO 10/19/16 09:00 11/18/16 08:59 10/20/16 07:56 250 MCG Potassium Chloride (Klor-Con Tab) 20 meq DAILY PO 10/19/16 09:00 11/18/16 08:59 10/20/16 09:56 20 MEQ Apixaban (Eliquis Tab) 5 mg BID PO 10/18/16 21:00 11/17/16 20:59 10/20/16 07:55 5 MG Hydrocodone Bit/ Homatropine Methylb (Hycodan Syrup) 5 ml Q4H PRN PO 10/18/16 16:30 11/01/16 16:29 10/20/16 03:09 5 ML Ipratropium [place] (Atrovent 0.02% 0.5MG/2.5ML Neb) 0.5 mg Q2H PRN INH 10/18/16 17:15 11/17/16 17:14 Levalbuterol (Xopenex 1.25MG/ 0.5ML Neb) 1.25 mg Q2H PRN INH 10/18/16 17:15 11/17/16 17:14 Metoprolol Tartrate (Lopressor Iv) 5 mg Q4 PRN IV 10/18/16 17:30 11/17/16 17:29 10/20/16 03:12 5 MG Hydralazine HCl (HydrALAZINE INJ) 10 mg Q6 PRN IV. 10/18/16 17:30 11/17/16 17:29 Chlorpromazine HCl (Thorazine Tab) 25 mg Q6 PRN PO 10/19/16 12:00 11/18/16 00:00 10/19/16 15:23 25 MG Furosemide (Lasix Tab) 40 mg BID17 PO 10/19/16 17:00 11/18/16 16:59 10/20/16 07:54 40 MG Metolazone (Zaroxolyn Tab) 2.5 mg DAILY PO 10/20/16 09:00 11/19/16 08:59 10/20/16 07:54 2.5 MG Spironolactone (Aldactone Tab) 50 mg DAILY PO 10/20/16 09:00 11/19/16 08:59 10/20/16 07:55 50 MG Amlodipine Besylate (Norvasc Tab) 2.5 mg QAM PO 10/20/16 09:00 11/19/16 08:59 10/20/16 07:56 2.5 MG Benzonatate (Tessalon Perles Cap) 100 mg TID PRN PO 10/20/16 04:00 11/19/16 03:59 10/20/16 04:37 100 MG Ipratropium [place] (Atrovent Hfa Inhaler) 2 puffs Q6 INH 10/20/16 18:00 11/19/16 17:59 Levalbuterol (Xopenex Hfa Inhaler) 2 puffs Q6 INH 10/20/16 18:00 11/19/16 17:59 Physical Exam Vital Signs Past 12 Hours Date Time Temp Pulse Resp B/P (MAP) Pulse Ox O2 Delivery O2 Flow Rate FiO2 10/20/16 11:31 37.2 105 18 125/64 (84) 94 2.0 10/20/16 08:00 Nasal Cannula 3.0 10/20/16 07:24 36.4 107 18 130/67 (88) 91 2.0 10/20/16 06:47 102 18 97 Nasal Cannula 3.0 10/20/16 04:00 36.7 138 23 145/66 (92) 91 Nasal Cannula 3.0 10/20/16 04:00 Nasal Cannula 2.0 10/20/16 03:12 138 145/66 10/20/16 01:46 92 20 94 Nasal Cannula 2.0 10/20/16 00:00 Nasal Cannula 2.0 10/19/16 23:53 36.5 103 20 120/66 (84) 94 Nasal Cannula 2.0 Constitutional: General Apperance: obese Level of Distress: NAD Psychiatric: Mental Status: active & alert Head: normocephalic Eyes: EOM: EOMI ENMT: normal ENT inspection, hearing grossly normal Neck: supple, no masses Lungs: Respiratory effort: no dyspnea, good air movement Auscultation: breath sounds normal, no wheezing Cardiovascular: Heart Auscultation: no rubs, no gallops, II/ LUDMILA, II/ WSM, irregular rate rhythm Peripheral Pulses: Bruits: none appreciated Abdomen: Bowel Sounds: normal Inspection & Palpation: soft, no tenderness, guarding & rebound, no masses Musculoskeletal: normal strength (5/5 throughout) Extremities: no edema Neurologic: Cranial Nerves: grossly intact Sensation: grossly intact Data Laboratory Results: Last 24 Hours Test 10/20/16 08:31 White Blood Count 15.80 K/uL Red Blood Count 3.56 M/uL Hemoglobin 9.0 g/dL Hematocrit 28.9 % Mean Corpuscular Volume 81.2 fL Mean Corpuscular Hemoglobin 25.3 pg Mean Corpuscular Hemoglobin Concent 31.1 g/dl RDW Standard Deviation 60.0 fL RDW Coefficient of Variation 20.2 % Platelet Count 142 K/uL Mean Platelet Volume 9.6 fL Nucleated RBC Absolute Count (auto) 0.05 K/uL Nucleated Red Blood Cells % 0.3 % Sodium Level 134 mmol/L Potassium Level 3.5 mmol/L Chloride Level 94 mmol/L Carbon Dioxide Level 32 mmol/L Anion Gap 8.0 mmol/L Blood Urea Nitrogen 19 mg/dl Creatinine 0.71 mg/dl Est Creatinine Clear Calc Drug Dose 137.9 ml/min Estimated GFR () 108.6 Estimated GFR (Non- 93.7 BUN/Creatinine Ratio 27.3 Random Glucose 130 mg/dl Calcium Level 8.0 mg/dl Magnesium Level 1.9 mg/dl Total Bilirubin 1.6 mg/dl Aspartate Amino Transf (AST/SGOT) 192 U/L Alanine Aminotransferase (ALT/SGPT) 71 U/L Alkaline Phosphatase 613 U/L Total Protein 5.9 gm/dl Albumin 1.8 gm/dl Globulin 4.1 gm/dl Albumin/Globulin Ratio 0.4 Imaging: Chest x-ray suggests mild CHF and cardiomegaly Echocardiography: Low normal left ventricular ejection fraction, mild aortic stenosis, MR EKG: Atrial fibrillation with a rapid heart rate, right bundle branch block Telemetry reviewed: Atrial fibrillation with a ventricular rate averaging around 100 bpm, often faster Assessment & Plan #1. Atrial fibrillation: This appears to be permanent, we need rate control and ongoing anticoagulation. He is tolerating the Eliquis well and I would continue it. He does need increased rate control, rapid heart rates can contribute to a cardiomyopathy which he may be developing. After going to add low-dose metoprolol to his regimen. #2. Left ventricular function: Although in the normal range his left ventricular ejection fraction is felt to be low normal. I think we need good heart rate control make sure he does not develop left ventricular dysfunction. Perhaps this is contributing to his presentation with congestive heart failure. #3. Congestive heart failure: The immediate cause is not clear, but appears that he was in heart failure based on his chest x-ray and his BNP. I agree with diuresis. I would also try to control his heart rate, which may in part be due to heart failure but may also be in part a contributor. Thank you for allowing me to participate in his care.
[2016-10-20] MEDS ORDERED: METOPROLOL TARTRATE 25 MG TAB PO ONE (13:15)
--- NOTE | 2016-10-20 13:54 | Hospitalist Progress Note ---
Hospitalist Progress Note Date of Service Oct 20, 2016. (Billie Suh PA-C) Subjective Pt evaluation today including: conversation w/ patient, physical exam, chart review, lab review, review of studies, review of inpatient medication list Patient seen and evaluated. Cough improving with tessalon perles. Reporting improvement in SOB at rest but still has CAIN. Outpatient records reviewed by quality control inspector heading and placed consultation with inhouse cardiology. Verbalizes no other complaints. Constitutional: No fever, No chills Respiratory: + cough (intermittent but improving), + dyspnea on exertion, No dyspnea at rest Cardiovascular: No chest pain, No palpitations Abdomen: No pain, No nausea, No vomiting, No diarrhea, No constipation ( Billie Suh PA-C) Medications Current Inpatient Medications Medications (Trade) Dose Ordered Sig/Carley Route Start Time Stop Time Status Last Admin Dose Admin Ioversol (Optiray 320) 125 ml UD PRN IV 10/18/16 14:45 10/22/16 14:44 Acetaminophen (Tylenol Tab) 650 mg Q4H PRN PO 10/18/16 16:00 11/17/16 15:59 Al Hydrox/Mg Hydrox/Simethicone (Maalox Max Susp) 15 ml Q4H PRN PO 10/18/16 16:00 11/17/16 15:59 Magnesium Hydroxide (Milk Of Magnesia Susp) 30 ml Q12H PRN PO 10/18/16 16:00 11/17/16 15:59 Ondansetron HCl (Zofran Inj) 4 mg Q6H PRN IV 10/18/16 16:00 11/17/16 15:59 Polyethylene (Miralax Powder Packet) 17 gm DAILY PRN PO 10/18/16 16:00 11/17/16 15:59 Cyanocobalamin (Vitamin B-12 Tab) 250 mcg DAILY PO 10/19/16 09:00 11/18/16 08:59 10/20/16 07:56 250 MCG Potassium Chloride (Klor-Con Tab) 20 meq DAILY PO 10/19/16 09:00 11/18/16 08:59 10/20/16 09:56 20 MEQ Apixaban (Eliquis Tab) 5 mg BID PO 10/18/16 21:00 11/17/16 20:59 10/20/16 07:55 5 MG Hydrocodone Bit/ Homatropine Methylb (Hycodan Syrup) 5 ml Q4H PRN PO 10/18/16 16:30 11/01/16 16:29 10/20/16 03:09 5 ML Ipratropium [place] (Atrovent 0.02% 0.5MG/2.5ML Neb) 0.5 mg Q2H PRN INH 10/18/16 17:15 11/17/16 17:14 Levalbuterol (Xopenex 1.25MG/ 0.5ML Neb) 1.25 mg Q2H PRN INH 10/18/16 17:15 11/17/16 17:14 Metoprolol Tartrate (Lopressor Iv) 5 mg Q4 PRN IV 10/18/16 17:30 11/17/16 17:29 10/20/16 12:41 5 MG Hydralazine HCl (HydrALAZINE INJ) 10 mg Q6 PRN IV. 10/18/16 17:30 11/17/16 17:29 Chlorpromazine HCl (Thorazine Tab) 25 mg Q6 PRN PO 10/19/16 12:00 11/18/16 00:00 10/19/16 15:23 25 MG Furosemide (Lasix Tab) 40 mg BID17 PO 10/19/16 17:00 11/18/16 16:59 10/20/16 07:54 40 MG Metolazone (Zaroxolyn Tab) 2.5 mg DAILY PO 10/20/16 09:00 11/19/16 08:59 10/20/16 07:54 2.5 MG Spironolactone (Aldactone Tab) 50 mg DAILY PO 10/20/16 09:00 11/19/16 08:59 10/20/16 07:55 50 MG Amlodipine Besylate (Norvasc Tab) 2.5 mg QAM PO 10/20/16 09:00 11/19/16 08:59 10/20/16 07:56 2.5 MG Benzonatate (Tessalon Perles Cap) 100 mg TID PRN PO 10/20/16 04:00 11/19/16 03:59 10/20/16 12:37 100 MG Ipratropium [place] (Atrovent Hfa Inhaler) 2 puffs Q6 INH 10/20/16 18:00 11/19/16 17:59 Levalbuterol (Xopenex Hfa Inhaler) 2 puffs Q6 INH 10/20/16 18:00 11/19/16 17:59 Metoprolol Tartrate (Lopressor Tab) 25 mg BID PO 10/20/16 21:00 11/19/16 20:59 (Billie Suh PA-C) Objective Vital Signs Date Time Temp Pulse Resp B/P (MAP) Pulse Ox O2 Delivery O2 Flow Rate FiO2 10/20/16 12:41 121 130/69 10/20/16 12:00 Nasal Cannula 3.0 10/20/16 11:31 37.2 105 18 125/64 (84) 94 2.0 10/20/16 08:00 Nasal Cannula 3.0 10/20/16 07:24 36.4 107 18 130/67 (88) 91 2.0 10/20/16 06:47 102 18 97 Nasal Cannula 3.0 10/20/16 04:00 36.7 138 23 145/66 (92) 91 Nasal Cannula 3.0 10/20/16 04:00 Nasal Cannula 2.0 10/20/16 03:12 138 145/66 10/20/16 01:46 92 20 94 Nasal Cannula 2.0 10/20/16 00:00 Nasal Cannula 2.0 10/19/16 23:53 36.5 103 20 120/66 (84) 94 Nasal Cannula 2.0 10/19/16 20:00 92 Nasal Cannula 2.0 10/19/16 19:43 36.7 107 18 113/62 (79) 94 Nasal Cannula 2.0 10/19/16 19:34 98 18 92 Nasal Cannula 2.0 10/19/16 16:00 91 Nasal Cannula 2.0 10/19/16 15:43 134 147/78 10/19/16 15:13 36.6 133 20 147/74 (98) 85 Room Air 10/19/16 15:13 102 147/74 (98) 92 Nasal Cannula 2.0 10/19/16 14:16 107 18 90 Room Air (Billie Suh PA-C) Physical Exam General Appearance: no apparent distress, + obese, + pertinent finding ( chronically ill-appearing) Eyes: sclerae normal ENT: hearing grossly normal Neck: supple, no JVD, trachea midline Respiratory/Chest: lungs clear, normal breath sounds, no respiratory distress, no accessory muscle use Cardiovascular: + systolic murmur, + irregularly irregular Abdomen: normal bowel sounds, non tender, soft, + distended Extremities: + swelling (bilateral edema with thickened skin from chronic venous changes) Neurologic/Psychiatric: alert Skin: normal color, warm/dry (Billie Suh PA-C) Laboratory Results Last 24 Hours Test 10/20/16 08:31 White Blood Count 15.80 K/uL Red Blood Count 3.56 M/uL Hemoglobin 9.0 g/dL Hematocrit 28.9 % Mean Corpuscular Volume 81.2 fL Mean Corpuscular Hemoglobin 25.3 pg Mean Corpuscular Hemoglobin Concent 31.1 g/dl RDW Standard Deviation 60.0 fL RDW Coefficient of Variation 20.2 % Platelet Count 142 K/uL Mean Platelet Volume 9.6 fL Nucleated RBC Absolute Count (auto) 0.05 K/uL Nucleated Red Blood Cells % 0.3 % Sodium Level 134 mmol/L Potassium Level 3.5 mmol/L Chloride Level 94 mmol/L Carbon Dioxide Level 32 mmol/L Anion Gap 8.0 mmol/L Blood Urea Nitrogen 19 mg/dl Creatinine 0.71 mg/dl Est Creatinine Clear Calc Drug Dose 137.9 ml/min Estimated GFR () 108.6 Estimated GFR (Non- 93.7 BUN/Creatinine Ratio 27.3 Random Glucose 130 mg/dl Calcium Level 8.0 mg/dl Magnesium Level 1.9 mg/dl Total Bilirubin 1.6 mg/dl Aspartate Amino Transf (AST/SGOT) 192 U/L Alanine Aminotransferase (ALT/SGPT) 71 U/L Alkaline Phosphatase 613 U/L Total Protein 5.9 gm/dl Albumin 1.8 gm/dl Globulin 4.1 gm/dl Albumin/Globulin Ratio 0.4 (Billie Suh PA-C) Assessment and Plan Mr. Breaux is a 71 y/o male with PMHx of HTN, Persistent Atrial Fibrillation, Peripheral Vascular Disease, and recent dx of Colon CA with Metastasis who presents to the ED c/o of progressive SOB x 3 weeks that has worsened 3-4 days ago. Congestive Heart Failure with Pulmonary HTN: Diastolic? - Per outpatient records he was due to have a sleep study that he has not completed and does have significant snoring - likely pulmonary htn is a factor but no mention of pressures on recent echo. He also had a clean cath as outpatient. Part of his hypoxia could be obesity hypoventilation syndrome as well - Echo - low normal EF with no mention of diastolic dysfunction; enlarged R atria - Given Lasix 40 mg IV x 2 doses then resumed on home medications -- diuresed - [id number] and respiratory exam remains clear - Lasix 40 mg BID, Metalozone 2.5 mg daily, and Spironolactone 50 mg daily - I&O and daily weights - Monitor electrolytes and replete as necessary - Amlodipine 2.5 mg daily and Metoprolol 25 mg BID - Consult Cardiology - recommendations for Metoprolol and continued diuresis for rate control and control of low normal EF and prevent further issues Wheezing: RESOLVED - Xopenex and Atrovent Intractable Cough: IMPROVED - Thorazine 25 mg Q6H PRN and Hydrocodone/Homatropine 5 mL Q4H PRN -- Patient reporting feeling more drowsy and suspect possibly from these medications - Tespascual prado seem to help better and would recommend this if coughing continues Persistent Atrial Fibrillation with RVR: Follows with Dr. Logan/DASIA Biswas - Anticoagulated with Eliquis 5 mg BID - Rate control with Metoprolol as above Elevated Troponin: TRENDING DOWN - Serial cardiac enzymes - likely mild increase could be related to demand ischemia from mild CHF and AFib RVR Transaminitis: TRENDING DOWN - Known liver metastasis but acute increase in liver function testing - will monitor Chronic Anemia: - Values are low normal - microcytic vs anemia of chronic disease - given colon CA likely chronic blood loss - Hemoglobin stable in 9.9-10 range which is consistent with previous admission and outside records - continue to monitor HTN: - Diuretic therapy, Amlodipine, and Metoprolol Chronic Venous Insufficiency: STABLE - BLE edema and erythema - even though presence of leukocytosis I have a low suspicion this is an active cellulitis -- Leukocytosis has been elevated and actually trending down without antibiotics and previous admission it was thought to be related to CA process - Outside records reviewed that this was a concern last month and he was treated with Azithromycin and Doxycycline as an outpatient and then admitted and switched to Vancomycin, Cefepime, and Clindamycin - Will continue to monitor and can add antibiotics if deemed necessary DVT Prophylaxis: Eliquis Code Status: FULL RESUSCITATION Disposition: - Cardiology - Dr. Logan - will likely need F/U prior to surgery for risk stratification - Await PT evaluations - likely will need two step prior to D/C Continued [facility] stay due to: ambulation difficulties Discharge planning: uncertain (Billie Suh, [place]) Reviewed: Pt Seen/Exam by Me (Ambika Madison, ) History Pt had been up to bedside with PT just prior to my exam. States he feels a bit better, but still having difficulty with ambulation and feels very weak. Tolerating PO without issue. No SOB but has not been OOB much. Agree with HPI/ROS as noted. (Ambika Madison, ) General Appearance: no apparent distress, obese Respiratory: normal breath sounds, no respiratory distress Cardiovascular: normal peripheral pulses, other (irregular rhythm, reg rate) Gastrointestinal: non tender, soft Extremities: non-tender, no pedal edema Neurologic/Psychiatric: alert, depressed affect Skin Characteristics: normal color, warm/dry (Ambika Madison DO) Assessment/Plan Agree with plan as outlined above SOB/CAIN: possibly related to CHF status Continue home diuretics ?? pulm HTN, ECHO noted for severe RA dilation with tr TR, pressure not reported CTA neg for PE and ? of pulm HTN noted UA neg on arrival, however nursing with concerns for foul smelling/appearing urine now. Repeat UA (Ambika Madison DO)
[2016-10-20] MEDS: IPRATROPIUM BROMIDE HFA INHALER INH SCH ×2 (17:41→23:37)
[2016-10-20] MEDS: LEValbuterol HFA 15GM INHALER INH SCH ×2 (17:42→23:37)
[2016-10-20] MEDS: METOPROLOL TARTRATE 25 MG TAB PO SCH (21:27)
[2016-10-21] VITALS (7 sets, daily range): BP systolic 117–155; BP diastolic 41–72; PULSE 86–92; TEMP 36.3–36.8; O2SAT 90–95
[2016-10-21] MEDS: CHLORPROMAZINE HCL 25 MG TAB PO PRN ×2 (00:46→22:55)
[2016-10-21] MEDS: IPRATROPIUM BROMIDE HFA INHALER INH SCH ×2 (05:40→12:08)
[2016-10-21] MEDS: LEValbuterol HFA 15GM INHALER INH SCH ×2 (05:40→12:07)
[2016-10-21 07:12] LABS: HEMATOCRIT 29.2 % (42-52); MEAN CELL VOLUME 80.4 fL (80-100); MEAN CORPUSCULAR HEMOGLOBIN 25.1 pg (25-34); MEAN CORPUSCULAR HGB CONC 31.2 g/dl (32-36); PLATELET COUNT 142 K/uL (130-400); RED BLOOD COUNT 3.63 M/uL (4.7-6.1); WHITE BLOOD COUNT 14.96 K/uL (4.8-10.8)
[2016-10-21 07:36] LABS: BUN/CREATININE RATIO 31.5 (10-20); CALCIUM 7.7 mg/dl (8.5-10.1); CREATININE 0.64 mg/dl (0.60-1.40); MAGNESIUM 1.7 mg/dl (1.8-2.4)
[2016-10-21 07:38] LABS: ALB/GLOB RATIO 0.5 (0.9-2)
[2016-10-21] MEDS: BENZONATATE 100MG CAP PO PRN ×2 (08:20→15:20)
[2016-10-21] MEDS: AMLODIPINE BESYLATE 5 MG TAB PO SCH (08:20)
[2016-10-21] MEDS: SPIRONOLACTONE 25 MG TAB PO SCH (08:21)
[2016-10-21] MEDS: CYANOCOBALAMIN 500 MCG TAB (VIT B-12) PO SCH (08:21)
[2016-10-21] MEDS: METOPROLOL TARTRATE 25 MG TAB PO SCH ×2 (08:22→21:38)
[2016-10-21] MEDS: POTASSIUM CHLORIDE 20 MEQ TABCR PO SCH (08:22)
[2016-10-21] MEDS: FUROSEMIDE 40 MG TAB PO SCH ×2 (08:22→16:07)
[2016-10-21] MEDS: APIXABAN 2.5 MG TAB PO SCH ×2 (08:22→21:38)
[2016-10-21] MEDS: METOLAZONE 2.5 MG TAB PO SCH (08:23)
--- NOTE | 2016-10-21 14:48 | DIAGNOSTIC IMAGING REPORT ---
CHEST 2 VIEWS ROUTINE CLINICAL HISTORY: cough CONGESTIVE FAILURE COMPARISON STUDY: 10/18/2016 FINDINGS: The study is mildly limited from a technical standpoint. The heart is enlarged. There are low lung volumes. There are bibasal airspace opacities likely atelectatic although an inflammatory process could appear similar. There is mild pulmonary vascular congestion. There are small pleural effusions.[ IMPRESSION: Cardiomegaly and mild pulmonary vascular congestion. Small pleural effusions. Bibasilar opacities, likely atelectatic. Electronically signed by: Raymond May M.D. 10/21/2016 2:46 PM Dictated Date/Time: 10/21/2016 2:43 PM
[2016-10-21] MEDS ORDERED: BENZONATATE 100MG CAP PO ONE (16:00)
--- NOTE | 2016-10-21 16:00 | Progress Note ---
Subjective Date of Service: Oct 21, 2016. Subjective Pt evaluation today including: conversation w/ patient, conversation w/ family , chart review Pt has been weak today. He has been having coughing spells where he feels like he is unable to clear congestion in his chest. What comes up is white. Tolerating PO, but appetite is decreased. SOB with coughing spells, but not when at rest. 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 Feels LE swelling is improving Liver bx planned for Sunday [employer]. Pt denies fever, chest pain, abd pain, n/v, LE pain. Problem List Medical Problems: (1) CHF exacerbation Status: Acute Review of Systems All Other Systems: Reviewed and Negative Objective Vital Signs Date Time Temp Pulse Resp B/P (MAP) Pulse Ox O2 Delivery O2 Flow Rate FiO2 10/21/16 15:23 36.8 92 22 117/55 (75) 90 Nasal Cannula 2.0 10/21/16 11:22 36.4 86 18 155/72 (99) 94 Nasal Cannula 2.0 10/21/16 08:00 Nasal Cannula 2.0 10/21/16 07:28 36.3 86 18 122/59 (80) 94 Nasal Cannula 2.0 10/21/16 04:00 Nasal Cannula 2.0 10/21/16 03:47 36.4 89 16 119/66 (83) 95 Nasal Cannula 2.0 10/21/16 00:00 Nasal Cannula 2.0 10/20/16 23:34 36.5 90 22 107/61 (76) 94 Nasal Cannula 1.0 10/20/16 21:23 36.6 83 120/69 (86) 10/20/16 20:10 36.8 95 22 113/65 (81) 93 Nasal Cannula 1.0 Humidified Oxygen 10/20/16 20:00 92 Nasal Cannula 2.0 Humidified Oxygen 10/20/16 18:44 37.3 10/20/16 17:01 36.8 99 24 138/78 (98) 92 Nasal Cannula 2.0 10/20/16 16:00 Nasal Cannula 3.0 Physical Exam General Appearance: no apparent distress (appears exhausted), + obese Eyes: normal inspection, EOMI ENT: hearing grossly normal Neck: supple Respiratory/Chest: normal breath sounds, no respiratory distress Cardiovascular: regular rate, rhythm, no edema Abdomen: non tender, soft Extremities: non-tender, no pedal edema Neurologic/Psychiatric: alert, + depressed affect Skin: normal color, warm/dry Laboratory Results Last 24 Hours Test 10/21/16 06:22 White Blood Count 14.96 K/uL Red Blood Count 3.63 M/uL Hemoglobin 9.1 g/dL Hematocrit 29.2 % Mean Corpuscular Volume 80.4 fL Mean Corpuscular Hemoglobin 25.1 pg Mean Corpuscular Hemoglobin Concent 31.2 g/dl RDW Standard Deviation 58.8 fL RDW Coefficient of Variation 20.1 % Platelet Count 142 K/uL Mean Platelet Volume 10.0 fL Sodium Level 135 mmol/L Potassium Level 3.0 mmol/L Chloride Level 92 mmol/L Carbon Dioxide Level 36 mmol/L Anion Gap 7.0 mmol/L Blood Urea Nitrogen 20 mg/dl Creatinine 0.64 mg/dl Est Creatinine Clear Calc Drug Dose 153.7 ml/min Estimated GFR () 113.4 Estimated GFR (Non- 97.8 BUN/Creatinine Ratio 31.5 Random Glucose 89 mg/dl Calcium Level 7.7 mg/dl Magnesium Level 1.7 mg/dl Total Bilirubin 1.6 mg/dl Aspartate Amino Transf (AST/SGOT) 178 U/L Alanine Aminotransferase (ALT/SGPT) 67 U/L Alkaline Phosphatase 685 U/L Total Protein 5.8 gm/dl Albumin 1.8 gm/dl Globulin 4.0 gm/dl Albumin/Globulin Ratio 0.5 Assessment and Plan Mr. 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 Congestive Heart Failure with Pulmonary HTN: Diastolic - Per outpatient records he was due to have a sleep study that he has not completed and does have significant snoring - likely pulmonary htn is a factor but no mention of pressures on recent echo. He also had a clean cath as outpatient. Part of his hypoxia could be obesity hypoventilation syndrome as well - Echo - low normal EF with no mention of diastolic dysfunction; enlarged R atria - Given Lasix 40 mg IV x 2 doses then resumed on home medications - Lasix 40 mg BID, Metalozone 2.5 mg daily, and Spironolactone 50 mg daily - I&O and daily weights - Monitor electrolytes and replete as necessary - Amlodipine 2.5 mg daily and Metoprolol 25 mg BID - Consult Cardiology - recommendations for Metoprolol and continued diuresis for rate control and control of low normal EF and prevent further issues Repeat CXR 10/21 with ongoing edema, neg for PNA Wheezing: RESOLVED - Xopenex and Atrovent Intractable Cough: IMPROVING, pt is likely too weak to have a strong cough - Thorazine 25 mg Q6H PRN and Hydrocodone/Homatropine 5 mL Q4H PRN -- Patient reporting feeling more drowsy and suspect possibly from these medications - Tessalon perles seem to help better and would recommend this if coughing continues Persistent Atrial Fibrillation with RVR: Follows with Dr. Logan/DASIA Biswas - Anticoagulated with Eliquis 5 mg BID - Rate control with Metoprolol as above Elevated Troponin: TRENDING DOWN - Serial cardiac enzymes - likely mild increase could be related to demand ischemia from mild CHF and AFib RVR Transaminitis: TRENDING DOWN - Known liver metastasis but acute increase in liver function testing - will monitor Liver bx planned for 10/23, will proceed given likely ongoing inpt status INR, platelets to be checked on 10/23 Radiology states anticoagulation does not need held for procedure Chronic Anemia: - Values are low normal - microcytic vs anemia of chronic disease - given colon CA likely chronic blood loss - Hemoglobin stable in 9.9-10 range which is consistent with previous admission and outside records - continue to monitor HTN: - Diuretic therapy, Amlodipine, and Metoprolol Chronic Venous Insufficiency: STABLE - BLE edema and erythema - even though presence of leukocytosis I have a low suspicion this is an active cellulitis -- Leukocytosis has been elevated and actually trending down without antibiotics and previous admission it was thought to be related to CA process - Outside records reviewed that this was a concern last month and he was treated with Azithromycin and Doxycycline as an outpatient and then admitted and switched to Vancomycin, Cefepime, and Clindamycin - Will continue to monitor and can add antibiotics if deemed necessary DVT Prophylaxis: Eliquis Code Status: FULL RESUSCITATION Disposition: - Cardiology - Dr. Logan - will likely need F/U prior to surgery for risk stratification - Await PT evaluations - likely will need two step prior to D/C Continued [facility] stay due to: ambulation difficulties Discharge planning: uncertain
[2016-10-21] MEDS: BENZONATATE 100MG CAP PO SCH (21:38)
[2016-10-22] MEDS: LEValbuterol HFA 15GM INHALER INH SCH ×5 (00:10→23:35)
[2016-10-22] MEDS: IPRATROPIUM BROMIDE HFA INHALER INH SCH ×5 (00:10→23:35)
[2016-10-22 04:16] VITALS: BP 126/57; PULSE 89; TEMP 36.5; O2SAT 92
[2016-10-22 07:16] VITALS: BP 142/55; PULSE 91; TEMP 36.4; O2SAT 93
[2016-10-22] MEDS: AMLODIPINE BESYLATE 5 MG TAB PO SCH (08:30)
[2016-10-22] MEDS: CYANOCOBALAMIN 500 MCG TAB (VIT B-12) PO SCH (08:31)
[2016-10-22] MEDS: METOPROLOL TARTRATE 25 MG TAB PO SCH ×2 (08:31→21:07)
[2016-10-22] MEDS: BENZONATATE 100MG CAP PO SCH ×3 (08:32→21:07)
[2016-10-22] MEDS: METOLAZONE 2.5 MG TAB PO SCH (08:32)
[2016-10-22] MEDS: POTASSIUM CHLORIDE 20 MEQ TABCR PO SCH (08:33)
[2016-10-22] MEDS: SPIRONOLACTONE 25 MG TAB PO SCH (08:33)
[2016-10-22] MEDS: FUROSEMIDE 40 MG TAB PO SCH ×2 (08:33→16:43)
[2016-10-22] MEDS: APIXABAN 2.5 MG TAB PO SCH ×2 (08:33→21:07)
[2016-10-22 11:36] VITALS: BP 115/71; PULSE 83; TEMP 36.6; O2SAT 92
--- NOTE | 2016-10-22 13:21 | Progress Note ---
Subjective Date of Service: Oct 22, 2016. Subjective Pt evaluation today including: conversation w/ patient Pt is feeling improved today. Still with some coughing. Tolerating PO. Pt denies fever, SOB, chest pain, abd pain, n/v/c/d, LE pain. LE swelling is with ongoing improvement. Problem List Medical Problems: (1) CHF exacerbation Status: Acute Objective Vital Signs Date Time Temp Pulse Resp B/P (MAP) Pulse Ox O2 Delivery O2 Flow Rate FiO2 10/22/16 11:36 36.6 83 24 115/71 (86) 92 Nasal Cannula 2.0 10/22/16 08:00 Nasal Cannula 2.0 10/22/16 07:16 36.4 91 22 142/55 (84) 93 Nasal Cannula 2.0 10/22/16 04:16 36.5 89 20 126/57 (80) 92 2.0 10/22/16 04:00 Nasal Cannula 2.0 10/22/16 00:00 Nasal Cannula 2.0 10/21/16 23:45 135/71 (92) 10/21/16 23:13 36.7 86 20 132/41 (71) 93 2.0 10/21/16 20:00 Nasal Cannula 2.0 10/21/16 19:53 36.8 87 18 122/63 (82) 92 2.0 10/21/16 16:00 Nasal Cannula 2.0 10/21/16 15:23 36.8 92 22 117/55 (75) 90 Nasal Cannula 2.0 Physical Exam Comments: General Appearance: no apparent distress (appears exhausted), + obese Eyes: normal inspection, EOMI ENT: hearing grossly normal Neck: supple Respiratory/Chest: normal breath sounds, no respiratory distress Cardiovascular: regular rate, rhythm, no edema Abdomen: non tender, soft Extremities: non-tender, no pedal edema Neurologic/Psychiatric: alert, + depressed affect Skin: normal color, warm/dry Assessment and Plan Mr. Breaux is a 71 y/o male with PMHx of HTN, Persistent Atrial Fibrillation, Peripheral Vascular Disease, and recent dx of Colon CA with Metastasis who presents to the ED c/o of progressive SOB x 3 weeks that has worsened 3-4 days [employer]. Congestive Heart Failure with Pulmonary HTN: Diastolic - Per outpatient records he was due to have a sleep study that he has not completed and does have significant snoring - possibly pulmonary htn is a factor (concern for this noted on CTA) but no mention of pressures on recent echo. He also had a clean cath as outpatient. Hypoxia possibly related to obesity hypoventilation syndrome as well - Echo - low normal EF with no mention of diastolic dysfunction; enlarged R atria - Given Lasix 40 mg IV x 2 doses then resumed on home medications - Lasix 40 mg BID, Metalozone 2.5 mg daily, and Spironolactone 50 mg daily - I&O and daily weights - Monitor electrolytes and replete as necessary - Amlodipine 2.5 mg daily and Metoprolol 25 mg BID - Cardiology - recommendations for Metoprolol and continued diuresis for rate control and control of low normal EF and prevent further issues Repeat CXR 10/21 with ongoing edema, neg for PNA Wheezing: RESOLVED - Xopenex and Atrovent Intractable Cough: IMPROVING, pt is likely too weak to have a strong cough - Thorazine 25 mg Q6H PRN and Hydrocodone/Homatropine 5 mL Q4H PRN -- Patient reporting feeling more drowsy and suspect possibly from these medications - Tiff prado Persistent Atrial Fibrillation with RVR: Follows with Dr. Logan/DASIA Biswas - Anticoagulated with Eliquis 5 mg BID - Rate control with Metoprolol as above Elevated Troponin: TRENDING DOWN - Serial cardiac enzymes - likely mild increase could be related to demand ischemia from mild CHF and AFib RVR Transaminitis: TRENDING DOWN - Known liver metastasis but acute increase in liver function testing - will monitor Liver bx planned for 10/23, will proceed with this tomorrow INR, platelets to be checked on 10/23 Radiology states anticoagulation does not need held for procedure Chronic Anemia: - Values are low normal - microcytic vs anemia of chronic disease - given colon CA likely chronic blood loss - Hemoglobin stable in 9.9-10 range which is consistent with previous admission and outside records - continue to monitor HTN: - Diuretic therapy, Amlodipine, and Metoprolol Chronic Venous Insufficiency: STABLE - BLE edema and erythema - even though presence of leukocytosis I have a low suspicion this is an active cellulitis -- Leukocytosis has been elevated and actually trending down without antibiotics and previous admission it was thought to be related to CA process - Outside records reviewed that this was a concern last month and he was treated with Azithromycin and Doxycycline as an outpatient and then admitted and switched to Vancomycin, Cefepime, and Clindamycin - Will continue to monitor and can add antibiotics if deemed necessary DVT Prophylaxis: Eliquis Code Status: FULL RESUSCITATION Disposition: - Cardiology - Dr. Logan - will likely need F/U prior to surgery for risk stratification - PT recs for ECF, OT recs for inpt rehab - likely will need two step prior to D /C Continued [facility] stay due to: ambulation difficulties Discharge planning: uncertain
[2016-10-22 15:46] VITALS: BP 142/69; PULSE 84; TEMP 36.5; O2SAT 94
[2016-10-22] MEDS: BENZONATATE 100MG CAP PO PRN (17:25)
[2016-10-22 19:24] VITALS: BP 121/56; PULSE 85; TEMP 36.5; O2SAT 90
[2016-10-22 23:19] VITALS: BP 131/76; PULSE 64; TEMP 36.8; O2SAT 96
[2016-10-23] VITALS (10 sets, daily range): BP systolic 106–130; BP diastolic 61–76; PULSE 82–94; TEMP 36.6–36.8; O2SAT 90–93
[2016-10-23] MEDS: LEValbuterol HFA 15GM INHALER INH SCH ×4 (05:56→23:30)
[2016-10-23] MEDS: IPRATROPIUM BROMIDE HFA INHALER INH SCH ×4 (05:57→23:30)
[2016-10-23 06:13] LABS: HEMATOCRIT 30.2 % (42-52); MEAN CELL VOLUME 77.8 fL (80-100); MEAN CORPUSCULAR HEMOGLOBIN 24.2 pg (25-34); MEAN CORPUSCULAR HGB CONC 31.1 g/dl (32-36); MEAN PLATELET VOLUME 9.5 fL (7.4-10.4); PLATELET COUNT 141 K/uL (130-400); RED BLOOD COUNT 3.88 M/uL (4.7-6.1); WHITE BLOOD COUNT 17.69 K/uL (4.8-10.8)
[2016-10-23 06:21] LABS: INR 1.5 (0.9-1.1); PROTHROMBIN TIME (PATIENT) 16.5 SECONDS (9.0-12.0)
[2016-10-23] MEDS: METOPROLOL TARTRATE 25 MG TAB PO SCH ×2 (07:49→20:26)
[2016-10-23] MEDS: BENZONATATE 100MG CAP PO SCH ×3 (07:49→20:26)
[2016-10-23] MEDS: SPIRONOLACTONE 25 MG TAB PO SCH (07:49)
[2016-10-23] MEDS: POTASSIUM CHLORIDE 20 MEQ TABCR PO SCH (07:49)
[2016-10-23] MEDS: METOLAZONE 2.5 MG TAB PO SCH (07:50)
[2016-10-23] MEDS: AMLODIPINE BESYLATE 5 MG TAB PO SCH (07:50)
[2016-10-23] MEDS: APIXABAN 2.5 MG TAB PO SCH (07:50)
[2016-10-23] MEDS: FUROSEMIDE 40 MG TAB PO SCH ×2 (07:50→17:48)
[2016-10-23] MEDS: CYANOCOBALAMIN 500 MCG TAB (VIT B-12) PO SCH (07:50)
--- NOTE | 2016-10-23 09:12 | Cardiology Follow-Up ---
Subjective Date of Service: Oct 23, 2016. Pt evaluation today including: conversation w/ patient, physical exam, lab review, review of studies, review of inpatient medication list History of Present Illness This is a 71-year-old gentleman who presented to the emergency room with progressive shortness of breath. He has a history of colon cancer which is undergoing evaluation currently. He also had a cardiac catheterization performed in May 2016 which demonstrated noncritical coronary artery disease. This was done for an abnormal stress test according to the report, he denies having any symptoms prior to that. He also has a history of permanent atrial fibrillation and is on Eliquis. He believes he has been in atrial fibrillation for 20 years, he tells me that he is not on any medications (including anticoagulation) until recently when warfarin was started, subsequently changed to Eliquis. He seems to be tolerating the Eliquis well. He reports having no difficulty with activity as of several weeks to month ago, then developing a lot of coughing and upper abdominal discomfort and possibly shortness of breath. When asked about her shortness of breath he relates abdominal discomfort and coughing, I'm not clear that he actually has difficulty breathing. He denies chest discomfort or wheezing. Evaluation in the hospital included a chest x-ray and BNP which does suggest congestive heart failure, his echocardiogram done 10/19/2016 shows a low normal left ventricular ejection fraction of 45-50% with mild aortic stenosis and mild mitral regurgitation. He has a severely dilated right atrium. His heart rate was controlled with metoprolol orally, and he was placed on a diuretic. Today he feels quite well, he has no specific complaints, no shortness of breath and no chest discomfort. Social History Smoking Status: Never Smoker History of Alcohol Use: No Review of Systems Respiratory: + dyspnea on exertion, No cough, No shortness of breath, No dyspnea at rest Cardiac: No chest pain, No palpitations Medications Cardiovascular: Item Value Date Time Metoprolol 25 mg 10/20/16 2100 Tartrate BID/PO 10/23/16 0749 (Lopressor Tab) Metolazone 2.5 mg 10/20/16 09 (Zaroxolyn Tab) DAILY/PO 10/23/16 0750 Spironolactone 50 mg 10/20/16 09 (Aldactone Tab) DAILY/PO 10/23/16 0749 Amlodipine 2.5 mg 10/20/16 0900 Besylate QAM/PO 10/23/16 0750 (Norvasc Tab) Furosemide 40 mg 10/19/16 1700 (Lasix Tab) BID17/PO 10/23/16 0750 Potassium Chloride 20 meq 10/19/16 0900 (Klor-Con Tab) DAILY/PO 10/23/16 0749 Apixaban 5 mg 10/18/16 2100 (Eliquis Tab) BID/PO 10/23/16 0750 Objective Vital Signs Past 12 Hours Date Time Temp Pulse Resp B/P (MAP) Pulse Ox O2 Delivery O2 Flow Rate FiO2 10/23/16 07:24 36.7 94 17 130/69 (89) 91 Humidified Oxygen 2.0 10/23/16 04:00 Nasal Cannula 2.0 10/23/16 03:09 36.7 85 20 113/66 (82) 90 Nasal Cannula 2.0 10/23/16 00:00 Nasal Cannula 2.0 10/22/16 23:19 36.8 64 18 131/76 (94) 96 2.0 Last Recorded Weight-Kilograms: 135.000 Physical Exam Constitutional: General Apperance: obese Level of Distress: NAD Lungs: Respiratory effort: no dyspnea, good air movement Auscultation: breath sounds normal, no wheezing Cardiovascular: Heart Auscultation: no rubs, no gallops, II/ LUDMILA, II/ WSM, irregular rate rhythm Peripheral Pulses: Bruits: none appreciated Extremities: edema (trace bilateral) Data Laboratory Results: Last 24 Hours Test 10/23/16 05:35 White Blood Count 17.69 K/uL Red Blood Count 3.88 M/uL Hemoglobin 9.4 g/dL Hematocrit 30.2 % Mean Corpuscular Volume 77.8 fL Mean Corpuscular Hemoglobin 24.2 pg Mean Corpuscular Hemoglobin Concent 31.1 g/dl RDW Standard Deviation 56.3 fL RDW Coefficient of Variation 19.8 % Platelet Count 141 K/uL Mean Platelet Volume 9.5 fL Prothrombin Time 16.5 SECONDS Prothromb Time International Ratio 1.5 Telemetry reviewed: Atrial fibrillation with a well-controlled heart rate. Assessment and Plan #1. Atrial fibrillation: This appears to be permanent, we need rate control and ongoing anticoagulation. He is tolerating the Eliquis well and I would continue it. His heart rate has come under good control with a relatively low dose of beta-blockade (metoprolol tartrate 25 mg twice a day). #2. Left ventricular function: Although in the normal range his left ventricular ejection fraction is felt to be low normal. I think we need good heart rate control to make sure he does not develop left ventricular dysfunction. Perhaps this is contributing to his presentation with congestive heart failure. #3. Congestive heart failure: The immediate cause is not clear, but appears that he was in heart failure based on his chest x-ray and his BNP. I agree with diuresis. I would also try to control his heart rate, which may in part be due to heart failure but may also be in part a contributor. I will switch to a long- acting form of metoprolol starting tomorrow. His current dose appears to be proper. Thank you for allowing me to participate in his care.
[2016-10-24] VITALS (8 sets, daily range): BP systolic 110–132; BP diastolic 60–77; PULSE 86–96; TEMP 36.6–37; O2SAT 90–94
[2016-10-24] MEDS: IPRATROPIUM BROMIDE HFA INHALER INH SCH ×4 (06:00→23:47)
[2016-10-24] MEDS: LEValbuterol HFA 15GM INHALER INH SCH ×4 (06:00→23:47)
[2016-10-24 06:03] LABS: BASO % 0.2 %; BASO ABS # 0.03 K/uL (0-0.2); COMPLETE YES; EOS % 0.2 %; HEMATOCRIT 29.8 % (42-52); IG% 0.9 %; LYMPH % 15.5 %; MEAN CELL VOLUME 77.2 fL (80-100); MEAN CORPUSCULAR HEMOGLOBIN 24.6 pg (25-34); MEAN CORPUSCULAR HGB CONC 31.9 g/dl (32-36); MEAN PLATELET VOLUME 9.6 fL (7.4-10.4); MONO % 10.4 %; NEUT % 72.8 %; PLATELET COUNT 137 K/uL (130-400); RED BLOOD COUNT 3.86 M/uL (4.7-6.1); WHITE BLOOD COUNT 18.76 K/uL (4.8-10.8)
[2016-10-24 06:15] LABS: INR 1.6 (0.9-1.1); PROTHROMBIN TIME (PATIENT) 17.7 SECONDS (9.0-12.0)
[2016-10-24 06:35] LABS: BUN/CREATININE RATIO 35.1 (10-20); CALCIUM 8.2 mg/dl (8.5-10.1); CREATININE 0.79 mg/dl (0.60-1.40); MAGNESIUM 1.7 mg/dl (1.8-2.4); POTASSIUM 3.1 mmol/L (3.5-5.1)
[2016-10-24] MEDS: SPIRONOLACTONE 25 MG TAB PO SCH (07:40)
[2016-10-24] MEDS: AMLODIPINE BESYLATE 5 MG TAB PO SCH (07:41)
[2016-10-24] MEDS: FUROSEMIDE 40 MG TAB PO SCH ×2 (07:41→17:34)
[2016-10-24] MEDS: BENZONATATE 100MG CAP PO SCH ×3 (07:42→20:51)
[2016-10-24] MEDS: METOLAZONE 2.5 MG TAB PO SCH (07:42)
[2016-10-24] MEDS: METOPROLOL SUCC 50MG EXT REL TAB PO SCH (07:43)
[2016-10-24] MEDS: CYANOCOBALAMIN 500 MCG TAB (VIT B-12) PO SCH (07:43)
[2016-10-24] MEDS: POTASSIUM CHLORIDE 20 MEQ TABCR PO SCH ×3 (08:32→20:51)
[2016-10-24] MEDS: MAGNESIUM OXIDE 400 MG TAB PO SCH ×2 (08:32→20:52)
--- NOTE | 2016-10-24 09:26 | Progress Note ---
Subjective Date of Service: Oct 23, 2016. Subjective Pt evaluation today including: conversation w/ patient, physical exam, lab review, conversation w/ technical services consultant, review of inpatient medication list Pain: no pain PO Intake: adequate Voiding: no voiding problems d/w radiology, hold on liver bx until tomorrow due to anticoagulation patient breathing well, no issues, no chest pain Problem List Medical Problems: (1) CHF exacerbation Status: Acute Review of Systems Constitutional: + weakness, + fatigue Respiratory: + dyspnea on exertion Cardiac: + edema Neurologic: + weakness Psychiatric: + depression symptoms All Other Systems: Reviewed and Negative Medications Current Inpatient Medications Medications (Trade) Dose Ordered Sig/Carley Route Start Time Stop Time Status Last Admin Dose Admin Acetaminophen (Tylenol Tab) 650 mg Q4H PRN PO 10/18/16 16:00 11/17/16 15:59 10/20/16 21:28 650 MG Al Hydrox/Mg Hydrox/Simethicone (Maalox Max Susp) 15 ml Q4H PRN PO 10/18/16 16:00 11/17/16 15:59 Magnesium Hydroxide (Milk Of Magnesia Susp) 30 ml Q12H PRN PO 10/18/16 16:00 11/17/16 15:59 Ondansetron HCl (Zofran Inj) 4 mg Q6H PRN IV 10/18/16 16:00 11/17/16 15:59 Polyethylene (Miralax Powder Packet) 17 gm DAILY PRN PO 10/18/16 16:00 11/17/16 15:59 Cyanocobalamin (Vitamin B-12 Tab) 250 mcg DAILY PO 10/19/16 09:00 11/18/16 08:59 10/23/16 07:50 250 MCG Potassium Chloride (Klor-Con Tab) 20 meq DAILY PO 10/19/16 09:00 11/18/16 08:59 10/23/16 07:49 20 MEQ Apixaban (Eliquis Tab) 5 mg BID PO 10/18/16 21:00 11/17/16 20:59 Future Hold 10/23/16 07:50 5 MG Hydrocodone Bit/ Homatropine Methylb (Hycodan Syrup) 5 ml Q4H PRN PO 10/18/16 16:30 11/01/16 16:29 10/20/16 21:28 5 ML Ipratropium [place] (Atrovent 0.02% 0.5MG/2.5ML Neb) 0.5 mg Q2H PRN INH 10/18/16 17:15 11/17/16 17:14 Levalbuterol (Xopenex 1.25MG/ 0.5ML Neb) 1.25 mg Q2H PRN INH 10/18/16 17:15 11/17/16 17:14 Metoprolol Tartrate (Lopressor Iv) 5 mg Q4 PRN IV 10/18/16 17:30 11/17/16 17:29 10/20/16 12:41 5 MG Hydralazine HCl (HydrALAZINE INJ) 10 mg Q6 PRN IV. 10/18/16 17:30 11/17/16 17:29 Chlorpromazine HCl (Thorazine Tab) 25 mg Q6 PRN PO 10/19/16 12:00 11/18/16 00:00 10/21/16 22:55 25 MG Furosemide (Lasix Tab) 40 mg BID17 PO 10/19/16 17:00 11/18/16 16:59 10/23/16 07:50 40 MG Metolazone (Zaroxolyn Tab) 2.5 mg DAILY PO 10/20/16 09:00 11/19/16 08:59 10/23/16 07:50 2.5 MG Spironolactone (Aldactone Tab) 50 mg DAILY PO 10/20/16 09:00 11/19/16 08:59 10/23/16 07:49 50 MG Amlodipine Besylate (Norvasc Tab) 2.5 mg QAM PO 10/20/16 09:00 11/19/16 08:59 10/23/16 07:50 2.5 MG Benzonatate (Tessalon Perles Cap) 100 mg TID PRN PO 10/20/16 04:00 11/19/16 03:59 10/22/16 17:25 100 MG Ipratropium [place] (Atrovent Hfa Inhaler) 2 puffs Q6 INH 10/20/16 18:00 11/19/16 17:59 10/23/16 05:57 2 PUFFS Levalbuterol (Xopenex Hfa Inhaler) 2 puffs Q6 INH 10/20/16 18:00 11/19/16 17:59 10/23/16 05:56 2 PUFFS Metoprolol Tartrate (Lopressor Tab) 25 mg BID PO 10/20/16 21:00 10/23/16 23:00 10/23/16 07:49 25 MG Benzonatate (Tessalon Perles Cap) 100 mg TID PO 10/21/16 21:00 11/20/16 20:59 10/23/16 13:56 100 MG Metoprolol Succinate (Toprol Xl Tab) 50 mg QAM PO 10/24/16 09:00 11/23/16 08:59 Objective Vital Signs Date Time Temp Pulse Resp B/P (MAP) Pulse Ox O2 Delivery O2 Flow Rate FiO2 10/23/16 15:47 36.6 87 20 116/62 (80) 93 Nasal Cannula 2.0 10/23/16 12:31 36.6 87 20 129/76 (93) 91 Nasal Cannula 2.0 10/23/16 12:00 Nasal Cannula 2.0 10/23/16 11:30 36.6 87 18 129/76 (93) 91 Nasal Cannula 2.0 10/23/16 08:00 Nasal Cannula 2.0 10/23/16 07:24 36.7 94 17 130/69 (89) 91 Humidified Oxygen 2.0 10/23/16 04:00 Nasal Cannula 2.0 10/23/16 03:09 36.7 85 20 113/66 (82) 90 Nasal Cannula 2.0 10/23/16 00:00 Nasal Cannula 2.0 10/22/16 23:19 36.8 64 18 131/76 (94) 96 2.0 10/22/16 20:00 Nasal Cannula 2.0 10/22/16 19:24 36.5 85 20 121/56 (77) 90 2.0 Physical Exam General Appearance: no apparent distress, + obese Eyes: normal inspection, EOMI, sclerae normal Neck: supple, no adenopathy, no JVD, trachea midline Respiratory/Chest: chest non-tender, no respiratory distress, no accessory muscle use, + decreased breath sounds Cardiovascular: regular rate, rhythm, no gallop, no JVD, no murmur Abdomen: normal bowel sounds, non tender, soft, no organomegaly Extremities: normal range of motion, non-tender, normal inspection, no calf tenderness, pelvis stable, + pedal edema Neurologic/Psychiatric: human resource assistant II-XII nml as tested, alert, oriented x 3, + motor weakness, + depressed affect Skin: normal color, warm/dry, no rash Laboratory Results Last 24 Hours Test 10/23/16 05:35 White Blood Count 17.69 K/uL Red Blood Count 3.88 M/uL Hemoglobin 9.4 g/dL Hematocrit 30.2 % Mean Corpuscular Volume 77.8 fL Mean Corpuscular Hemoglobin 24.2 pg Mean Corpuscular Hemoglobin Concent 31.1 g/dl RDW Standard Deviation 56.3 fL RDW Coefficient of Variation 19.8 % Platelet Count 141 K/uL Mean Platelet Volume 9.5 fL Prothrombin Time 16.5 SECONDS Prothromb Time International Ratio 1.5 Assessment and Plan Mr. Breaux is a 71 y/o male with PMHx of HTN, Persistent Atrial Fibrillation, Peripheral Vascular Disease, and recent dx of Colon CA with Metastasis who presents to the ED c/o of progressive SOB x 3 weeks that has worsened 3-4 days [employer]. Congestive Heart Failure with Pulmonary HTN: Diastolic - Per outpatient records he was due to have a sleep study that he has not completed and does have significant snoring - possibly pulmonary htn is a factor (concern for this noted on CTA) but no mention of pressures on recent echo. He also had a clean cath as outpatient. Hypoxia possibly related to obesity hypoventilation syndrome as well - Echo - low normal EF with no mention of diastolic dysfunction; enlarged R atria - Given Lasix 40 mg IV x 2 doses then resumed on home medications, responded well to Lasix and acute component of heart failure resolved - Lasix 40 mg BID, Metalozone 2.5 mg daily, and Spironolactone 50 mg daily - I&O and daily weights: continues to diurese well, weight trending down - Monitor electrolytes and replete as necessary, K low, increase to TID dosing and follow closely - Amlodipine 2.5 mg daily and Metoprolol 25 mg BID - Cardiology - recommendations for Metoprolol and continued diuresis for rate control and control of low normal EF and prevent further issues Intractable Cough: IMPROVING, pt is likely too weak to have a strong cough - Thorazine 25 mg Q6H PRN and Hydrocodone/Homatropine 5 mL Q4H PRN -- Patient reporting feeling more drowsy and suspect possibly from these medications - Tiff prado Persistent Atrial Fibrillation with RVR: Follows with Dr. Logan/DASIA Biswas - Anticoagulated with Eliquis 5 mg BID, holding for liver biopsy - Rate control with Metoprolol as above Elevated Troponin: TRENDING DOWN - Serial cardiac enzymes - likely mild increase could be related to demand ischemia from mild CHF and AFib RVR Transaminitis: TRENDING DOWN - Known liver metastasis but acute increase in liver function testing - will monitor Liver bx planned for 10/24 INR, platelets to be checked on 10/24 d/w radiology, now want Eliquis held, last dose in the AM on 10/23 Chronic Anemia: - Values are low normal - microcytic vs anemia of chronic disease - given colon CA likely chronic blood loss HTN: - Diuretic therapy, Amlodipine, and Metoprolol Chronic Venous Insufficiency: STABLE - BLE edema and erythema - no signs of cellulitis - Outside records reviewed that this was a concern last month and he was treated with Azithromycin and Doxycycline as an outpatient and then admitted and switched to Vancomycin, Cefepime, and Clindamycin - Will continue to monitor and can add antibiotics if deemed necessary DVT Prophylaxis: Eliquis, held after AM dose on 10/23 Code Status: FULL RESUSCITATION Disposition: - Cardiology - Dr. Logan - will likely need F/U prior to surgery for risk stratification - PT recs for ECF, OT recs for inpt rehab - likely will need two step prior to D /C - liver biopsy tentatively scheduled for 10/24 Continued [facility] stay due to: ambulation difficulties Discharge planning: uncertain
--- NOTE | 2016-10-24 15:32 | Progress Note ---
Subjective Date of Service: Oct 24, 2016. Subjective Pt evaluation today including: conversation w/ patient, physical exam, lab review, review of inpatient medication list Pain: no pain PO Intake: adequate Voiding: tao catheter in place patient without any issues today breathing well, no chest pain, sleeping well, eating well moved bowels yesterday still with ascites, still diuresing well hope for biopsy tomorrow Problem List Medical Problems: (1) CHF exacerbation Status: Acute Review of Systems Constitutional: + weakness, + fatigue Respiratory: + dyspnea on exertion Cardiac: + edema Abdomen: + problem reported (ascites) All Other Systems: Reviewed and Negative Medications Current Inpatient Medications Medications (Trade) Dose Ordered Sig/Carley Route Start Time Stop Time Status Last Admin Dose Admin Acetaminophen (Tylenol Tab) 650 mg Q4H PRN PO 10/18/16 16:00 11/17/16 15:59 10/20/16 21:28 650 MG Al Hydrox/Mg Hydrox/Simethicone (Maalox Max Susp) 15 ml Q4H PRN PO 10/18/16 16:00 11/17/16 15:59 Magnesium Hydroxide (Milk Of Magnesia Susp) 30 ml Q12H PRN PO 10/18/16 16:00 11/17/16 15:59 Ondansetron HCl (Zofran Inj) 4 mg Q6H PRN IV 10/18/16 16:00 11/17/16 15:59 Polyethylene (Miralax Powder Packet) 17 gm DAILY PRN PO 10/18/16 16:00 11/17/16 15:59 Cyanocobalamin (Vitamin B-12 Tab) 250 mcg DAILY PO 10/19/16 09:00 11/18/16 08:59 10/24/16 07:43 250 MCG Apixaban (Eliquis Tab) 5 mg BID PO 10/18/16 21:00 11/17/16 20:59 Future Hold 10/23/16 07:50 5 MG Hydrocodone Bit/ Homatropine Methylb (Hycodan Syrup) 5 ml Q4H PRN PO 10/18/16 16:30 11/01/16 16:29 10/20/16 21:28 5 ML Ipratropium [place] (Atrovent 0.02% 0.5MG/2.5ML Neb) 0.5 mg Q2H PRN INH 10/18/16 17:15 11/17/16 17:14 Levalbuterol (Xopenex 1.25MG/ 0.5ML Neb) 1.25 mg Q2H PRN INH 10/18/16 17:15 11/17/16 17:14 Metoprolol Tartrate (Lopressor Iv) 5 mg Q4 PRN IV 10/18/16 17:30 11/17/16 17:29 10/20/16 12:41 5 MG Hydralazine HCl (HydrALAZINE INJ) 10 mg Q6 PRN IV. 10/18/16 17:30 11/17/16 17:29 Chlorpromazine HCl (Thorazine Tab) 25 mg Q6 PRN PO 10/19/16 12:00 11/18/16 00:00 10/21/16 22:55 25 MG Furosemide (Lasix Tab) 40 mg BID17 PO 10/19/16 17:00 11/18/16 16:59 10/24/16 07:41 40 MG Metolazone (Zaroxolyn Tab) 2.5 mg DAILY PO 10/20/16 09:00 11/19/16 08:59 10/24/16 07:42 2.5 MG Spironolactone (Aldactone Tab) 50 mg DAILY PO 10/20/16 09:00 11/19/16 08:59 10/24/16 07:40 50 MG Amlodipine Besylate (Norvasc Tab) 2.5 mg QAM PO 10/20/16 09:00 11/19/16 08:59 10/24/16 07:41 2.5 MG Benzonatate (Tessalon Perles Cap) 100 mg TID PRN PO 10/20/16 04:00 11/19/16 03:59 10/22/16 17:25 100 MG Ipratropium [place] (Atrovent Hfa Inhaler) 2 puffs Q6 INH 10/20/16 18:00 11/19/16 17:59 10/24/16 12:17 2 PUFFS Levalbuterol (Xopenex Hfa Inhaler) 2 puffs Q6 INH 10/20/16 18:00 11/19/16 17:59 10/24/16 12:17 2 PUFFS Benzonatate (Tessalon Perles Cap) 100 mg TID PO 10/21/16 21:00 11/20/16 20:59 10/24/16 14:10 100 MG Metoprolol Succinate (Toprol Xl Tab) 50 mg QAM PO 10/24/16 09:00 11/23/16 08:59 10/24/16 07:43 50 MG Potassium Chloride (Klor-Con Tab) 20 meq TID PO 10/24/16 09:00 11/18/16 08:59 10/24/16 14:10 20 MEQ Magnesium Oxide (Mag-Ox Tab) 400 mg BID PO 10/24/16 09:00 11/23/16 08:59 10/24/16 08:32 400 MG Objective Vital Signs Date Time Temp Pulse Resp B/P (MAP) Pulse Ox O2 Delivery O2 Flow Rate FiO2 10/24/16 12:00 Nasal Cannula 2.0 10/24/16 11:25 36.7 88 18 114/72 (86) 93 Humidified Oxygen 2.0 10/24/16 08:00 Nasal Cannula 2.0 10/24/16 07:45 36.6 96 19 120/67 (84) 94 Nasal Cannula 4.0 10/24/16 04:10 92 Nasal Cannula 2.0 10/24/16 03:55 36.7 86 20 119/60 (79) 92 2.0 10/24/16 00:00 92 Nasal Cannula 2.0 10/23/16 23:33 36.7 82 20 106/61 (76) 91 2.0 10/23/16 20:15 36.8 90 22 128/68 (88) 93 Nasal Cannula 2.0 10/23/16 20:06 93 Nasal Cannula 2.0 10/23/16 19:41 36.6 88 20 111/65 (80) 92 Room Air 10/23/16 16:00 93 Nasal Cannula 2.0 10/23/16 15:47 36.6 87 20 116/62 (80) 93 Nasal Cannula 2.0 Physical Exam General Appearance: no apparent distress, + obese Neck: supple, no adenopathy, no JVD, trachea midline Respiratory/Chest: chest non-tender, lungs clear, normal breath sounds, no respiratory distress, no accessory muscle use Cardiovascular: regular rate, rhythm, no gallop, no JVD, no murmur Abdomen: normal bowel sounds, non tender, soft, no organomegaly, + pertinent finding (distended with ascites) Extremities: normal range of motion, non-tender, normal inspection, no calf tenderness, pelvis stable, + pedal edema Neurologic/Psychiatric: vendor management consultant II-XII nml as tested, alert, normal mood/affect, oriented x 3, + motor weakness Skin: + pertinent finding (dark discoloration, venous stasis changes, old skin graft/scar) Lymphatic: no adenopathy Laboratory Results Last 24 Hours Test 10/24/16 05:48 White Blood Count 18.76 K/uL Red Blood Count 3.86 M/uL Hemoglobin 9.5 g/dL Hematocrit 29.8 % Mean Corpuscular Volume 77.2 fL Mean Corpuscular Hemoglobin 24.6 pg Mean Corpuscular Hemoglobin Concent 31.9 g/dl Platelet Count 137 K/uL Mean Platelet Volume 9.6 fL Neutrophils (%) (Auto) 72.8 % Lymphocytes (%) (Auto) 15.5 % Monocytes (%) (Auto) 10.4 % Eosinophils (%) (Auto) 0.2 % Basophils (%) (Auto) 0.2 % Neutrophils # (Auto) 13.68 K/uL Lymphocytes # (Auto) 2.90 K/uL Monocytes # (Auto) 1.95 K/uL Eosinophils # (Auto) 0.04 K/uL Basophils # (Auto) 0.03 K/uL RDW Standard Deviation 55.2 fL RDW Coefficient of Variation 19.8 % Immature Granulocyte % (Auto) 0.9 % Immature Granulocyte # (Auto) 0.16 K/uL Prothrombin Time 17.7 SECONDS Prothromb Time International Ratio 1.6 Sodium Level 133 mmol/L Potassium Level 3.1 mmol/L Chloride Level 86 mmol/L Carbon Dioxide Level 37 mmol/L Anion Gap 10.0 mmol/L Blood Urea Nitrogen 28 mg/dl Creatinine 0.79 mg/dl Est Creatinine Clear Calc Drug Dose 120.8 ml/min Estimated GFR () 104.0 Estimated GFR (Non- 89.7 BUN/Creatinine Ratio 35.1 Random Glucose 92 mg/dl Calcium Level 8.2 mg/dl Magnesium Level 1.7 mg/dl Total Bilirubin 2.3 mg/dl Direct Bilirubin 1.5 mg/dl Aspartate Amino Transf (AST/SGOT) 193 U/L Alanine Aminotransferase (ALT/SGPT) 61 U/L Alkaline Phosphatase 694 U/L Total Protein 5.8 gm/dl Albumin 1.7 gm/dl Assessment and Plan Mr. Breaux is a 71 y/o male with PMHx of HTN, Persistent Atrial Fibrillation, Peripheral Vascular Disease, and recent dx of Colon CA with Metastasis who presents to the ED c/o of progressive SOB x 3 weeks that has worsened 3-4 days [employer]. Congestive Heart Failure with Pulmonary HTN: Diastolic - Per outpatient records he was due to have a sleep study that he has not completed and does have significant snoring - possibly pulmonary htn is a factor (concern for this noted on CTA) but no mention of pressures on recent echo. He also had a clean cath as outpatient. Hypoxia possibly related to obesity hypoventilation syndrome as well - Echo - low normal EF with no mention of diastolic dysfunction; enlarged R atria - Given Lasix 40 mg IV x 2 doses then resumed on home medications, responded well to Lasix and acute component of heart failure resolved - Lasix 40 mg BID, Metalozone 2.5 mg daily, and Spironolactone 50 mg daily - I&O and daily weights: continues to diurese well, weight trending down, negative 1700 yesterday - significant ascites still likely due to liver mets, continue to diurese - Monitor electrolytes and replete as necessary, K low, increase to TID dosing and follow closely, 3.1 today - Amlodipine 2.5 mg daily and Metoprolol 25 mg BID - Cardiology - recommendations for Metoprolol and continued diuresis for rate control and control of low normal EF and prevent further issues Intractable Cough: IMPROVING, pt is likely too weak to have a strong cough - Thorazine 25 mg Q6H PRN and Hydrocodone/Homatropine 5 mL Q4H PRN -- Patient reporting feeling more drowsy and suspect possibly from these medications - Tiff prado Persistent Atrial Fibrillation with RVR: Follows with Dr. Logan/DASIA Biswas - Anticoagulated with Eliquis 5 mg BID, holding for liver biopsy - Rate control with Metoprolol as above Elevated Troponin: TRENDING DOWN - Serial cardiac enzymes - likely mild increase could be related to demand ischemia from mild CHF and AFib RVR Transaminitis: TRENDING DOWN - Known liver metastasis but acute increase in liver function testing - will monitor Liver bx planned for today but again postponed until tomorrow INR 1.6 today Chronic Anemia: - Values are low normal - microcytic vs anemia of chronic disease - given colon CA likely chronic blood loss HTN: - Diuretic therapy, Amlodipine, and Metoprolol Chronic Venous Insufficiency: STABLE - BLE edema and erythema - no signs of cellulitis - Outside records reviewed that this was a concern last month and he was treated with Azithromycin and Doxycycline as an outpatient and then admitted and switched to Vancomycin, Cefepime, and Clindamycin - Will continue to monitor and can add antibiotics if deemed necessary, currently afebrile, WBC normal, no cellulitis on exam DVT Prophylaxis: Eliquis, held after AM dose on 10/23 Code Status: FULL RESUSCITATION Disposition: - Cardiology - Dr. Logan - will likely need F/U prior to surgery for risk stratification - PT recs for ECF, OT recs for inpt rehab - referral made to [facility] - liver biopsy tentatively scheduled for 10/25 - want to diurese more prior to discharge Continued [facility] stay due to: ambulation difficulties Discharge planning: uncertain
[2016-10-25] VITALS (7 sets, daily range): BP systolic 106–127; BP diastolic 60–73; PULSE 80–94; TEMP 36.4–37.2; O2SAT 92–94
[2016-10-25] MEDS: IPRATROPIUM BROMIDE HFA INHALER INH SCH ×4 (06:03→23:17)
[2016-10-25] MEDS: LEValbuterol HFA 15GM INHALER INH SCH ×4 (06:03→23:18)
[2016-10-25 07:41] LABS: INR 1.5 (0.9-1.1); PROTHROMBIN TIME (PATIENT) 16.7 SECONDS (9.0-12.0)
[2016-10-25 07:51] LABS: BASO % 0.2 %; BASO ABS # 0.04 K/uL (0-0.2); EOS % 0.4 %; HEMATOCRIT 31.2 % (42-52); IG% 0.8 %; LYMPH % 16.4 %; LYMPH ABS # 3.19 K/uL (1.2-3.4); MEAN CELL VOLUME 77.2 fL (80-100); MEAN CORPUSCULAR HEMOGLOBIN 23.8 pg (25-34); MEAN CORPUSCULAR HGB CONC 30.8 g/dl (32-36); MEAN PLATELET VOLUME 9.7 fL (7.4-10.4); MONO % 10.6 %; NEUT % 71.6 %; PLATELET COUNT 150 K/uL (130-400); RED BLOOD COUNT 4.04 M/uL (4.7-6.1); WHITE BLOOD COUNT 19.47 K/uL (4.8-10.8)
[2016-10-25 07:58] LABS: BUN/CREATININE RATIO 38.4 (10-20); CALCIUM 7.8 mg/dl (8.5-10.1); CREATININE 0.76 mg/dl (0.60-1.40); MAGNESIUM 1.9 mg/dl (1.8-2.4); POTASSIUM 3.2 mmol/L (3.5-5.1)
[2016-10-25 08:20] LABS: ANISOCYTOSIS PRESENT; COMPLETE YES; POLYCHROMASIA 1+; TARGET CELLS 1+
[2016-10-25] MEDS: AMLODIPINE BESYLATE 5 MG TAB PO SCH (08:59)
[2016-10-25] MEDS: CYANOCOBALAMIN 500 MCG TAB (VIT B-12) PO SCH (08:59)
[2016-10-25] MEDS: MAGNESIUM OXIDE 400 MG TAB PO SCH ×2 (09:00→21:34)
[2016-10-25] MEDS: METOPROLOL SUCC 50MG EXT REL TAB PO SCH (09:00)
[2016-10-25] MEDS: FUROSEMIDE 40 MG TAB PO SCH ×3 (09:00→21:35)
[2016-10-25] MEDS: POTASSIUM CHLORIDE 20 MEQ TABCR PO SCH ×3 (09:01→21:36)
[2016-10-25] MEDS: METOLAZONE 2.5 MG TAB PO SCH (09:02)
[2016-10-25] MEDS: BENZONATATE 100MG CAP PO SCH ×3 (09:03→21:35)
--- NOTE | 2016-10-25 09:09 | Cardiology Follow-Up ---
Subjective Date of Service: Oct 25, 2016. Pt evaluation today including: conversation w/ patient, physical exam, lab review, review of studies, review of inpatient medication list History of Present Illness This is a 71-year-old gentleman who presented to the emergency room with progressive shortness of breath. He has a history of colon cancer which is undergoing evaluation currently. He also had a cardiac catheterization performed in May 2016 which demonstrated noncritical coronary artery disease. This was done for an abnormal stress test according to the report, he denies having any symptoms prior to that. He also has a history of permanent atrial fibrillation and is on Eliquis. He believes he has been in atrial fibrillation for 20 years, he tells me that he is not on any medications (including anticoagulation) until recently when warfarin was started, subsequently changed to Eliquis. He seems to be tolerating the Eliquis well. He reports having no difficulty with activity as of several weeks to month ago, then developing a lot of coughing and upper abdominal discomfort and possibly shortness of breath. When asked about her shortness of breath he relates abdominal discomfort and coughing, I'm not clear that he actually has difficulty breathing. He denies chest discomfort or wheezing. Evaluation in the hospital included a chest x-ray and BNP which does suggest congestive heart failure, his echocardiogram done 10/19/2016 shows a low normal left ventricular ejection fraction of 45-50% with mild aortic stenosis and mild mitral regurgitation. He has a severely dilated right atrium. His heart rate was controlled with metoprolol orally, and he was placed on a diuretic. Today he is lying in bed with frequent coughing, he has no other specific complaints, no shortness of breath and no chest discomfort. Social History Smoking Status: Never Smoker History of Alcohol Use: No Review of Systems Respiratory: + dyspnea on exertion Cardiac: + edema Medications Cardiovascular: Item Value Date Time Metoprolol 50 mg 10/24/16899 Succinate QAM/PO 10/24/16742 (Toprol Xl Tab) Potassium Chloride 20 meq 10/24/16899 (Klor-Con Tab) TID/PO 10/24/162050 Magnesium Oxide 400 mg 10/24/16899 (Mag-Ox Tab) BID/PO 10/24/162051 Metolazone 2.5 mg 10/20/16899 (Zaroxolyn Tab) DAILY/PO 7/11/17 0742 Spironolactone 50 mg 10/20/16 0900 (Aldactone Tab) DAILY/PO 10/24/16 0740 Amlodipine 2.5 mg 10/20/16 0900 Besylate QAM/PO 10/24/16 0741 (Norvasc Tab) Furosemide 40 mg 10/19/16 1700 (Lasix Tab) BID17/PO 10/24/16 1734 Objective Vital Signs Past 12 Hours Date Time Temp Pulse Resp B/P (MAP) Pulse Ox O2 Delivery O2 Flow Rate FiO2 10/25/16 07:30 36.8 94 20 127/73 (91) 93 2.0 10/25/16 00:00 Nasal Cannula 2.0 10/24/16 23:40 36.8 87 20 132/77 (95) 90 Room Air Last Recorded Weight-Kilograms: 129.500 Physical Exam Constitutional: General Apperance: obese Level of Distress: NAD Lungs: Respiratory effort: no dyspnea, good air movement Auscultation: breath sounds normal, no wheezing Cardiovascular: Heart Auscultation: no rubs, no gallops, II/ LUDMILA, II/ WSM, irregular rate rhythm Peripheral Pulses: Bruits: none appreciated Extremities: edema (trace bilateral) Data Laboratory Results: Last 24 Hours Test 10/25/16 06:41 White Blood Count 19.47 K/uL Red Blood Count 4.04 M/uL Hemoglobin 9.6 g/dL Hematocrit 31.2 % Mean Corpuscular Volume 77.2 fL Mean Corpuscular Hemoglobin 23.8 pg Mean Corpuscular Hemoglobin Concent 30.8 g/dl Platelet Count 150 K/uL Mean Platelet Volume 9.7 fL Neutrophils (%) (Auto) 71.6 % Lymphocytes (%) (Auto) 16.4 % Monocytes (%) (Auto) 10.6 % Eosinophils (%) (Auto) 0.4 % Basophils (%) (Auto) 0.2 % Neutrophils # (Auto) 13.94 K/uL Lymphocytes # (Auto) 3.19 K/uL Monocytes # (Auto) 2.07 K/uL Eosinophils # (Auto) 0.08 K/uL Basophils # (Auto) 0.04 K/uL RDW Standard Deviation 56.1 fL RDW Coefficient of Variation 20.2 % Immature Granulocyte % (Auto) 0.8 % Immature Granulocyte # (Auto) 0.15 K/uL Nucleated RBC Absolute Count (auto) 0.06 K/uL Nucleated Red Blood Cells % 0.3 % Polychromasia 1+ Anisocytosis PRESENT Target Cells 1+ Prothrombin Time 16.7 SECONDS Prothromb Time International Ratio 1.5 Sodium Level 133 mmol/L Potassium Level 3.2 mmol/L Chloride Level 86 mmol/L Carbon Dioxide Level 37 mmol/L Anion Gap 10.0 mmol/L Blood Urea Nitrogen 29 mg/dl Creatinine 0.76 mg/dl Est Creatinine Clear Calc Drug Dose 125.7 ml/min Estimated GFR () 105.6 Estimated GFR (Non- 91.1 BUN/Creatinine Ratio 38.4 Random Glucose 107 mg/dl Calcium Level 7.8 mg/dl Phosphorus Level 2.0 mg/dl Magnesium Level 1.9 mg/dl Total Bilirubin 2.6 mg/dl Direct Bilirubin 1.8 mg/dl Aspartate Amino Transf (AST/SGOT) 202 U/L Alanine Aminotransferase (ALT/SGPT) 65 U/L Alkaline Phosphatase 727 U/L Total Protein 6.0 gm/dl Albumin 1.7 gm/dl Assessment and Plan #1. Atrial fibrillation: This appears to be permanent, we need rate control and ongoing anticoagulation. He is tolerating the Eliquis well and I would continue it. His heart rate has come under reasonably good control with a relatively low dose of beta-blockade (metoprolol succinate 50 mg daily). At rest it still may be somewhat elevated, although not dangerously so. I think it would be reasonable to try to increase his dose to 75 mg daily and I'll make that change. #2. Left ventricular function: Although in the normal range his left ventricular ejection fraction is felt to be low normal. I think we need good heart rate control to make sure he does not develop left ventricular dysfunction. Beta-blockade may also help with his cardiomyopathy although that may be related to the atrial arrhythmia and his left ventricular ejection fraction is low normal rather than significantly reduced. Perhaps this is contributing to his presentation with congestive heart failure. #3. Congestive heart failure: The immediate cause is not clear, but appears that he was in heart failure based on his chest x-ray and his BNP. I agree with diuresis. I would also try to control his heart rate, which may in part be due to heart failure but may also be in part a contributor. I will increase his metoprolol today. He continues to have a cough which is his main symptom, yet he has lost a significant amount of weight and his intake and output is consistently negative. I don't know if his cough is entirely consistent with congestive heart failure at this point and may bear specific evaluation. Thank you for allowing me to participate in his care.
[2016-10-25] MEDS ORDERED: METOPROLOL SUCC 25MG EXT REL TAB PO STA (09:24)
[2016-10-25] MEDS ORDERED: PHYTONADIONE INJ 10 MG in SODIUM CHLORIDE 0.9% 50ML 50 ML IV ONE (10:30)
[2016-10-25] MEDS: SPIRONOLACTONE 25 MG TAB PO SCH (10:38)
--- NOTE | 2016-10-25 15:11 | Progress Note ---
Subjective Date of Service: Oct 25, 2016. Subjective Pt evaluation today including: conversation w/ patient, physical exam, lab review, conversation w/ ent consultant, review of inpatient medication list Pain: no pain PO Intake: adequate Voiding: tao catheter in place discussed with radiology, will hold on liver biopsy, no clear indication at this point reviewing prior records, has had ongoing transaminitis since September, recorded in records from [facility] at that point suggested that it was due to liver mets patient does not really grasp situation with liver mets, poor prognosis asked if he had seen oncology, he could not recall, reports state that he was following with Dr. Brand will call and discuss with family reviewed labs, K is low at 3.1 due to Lasix, still with leukocytosis but no fever and no signs of infection Problem List Medical Problems: (1) CHF exacerbation Status: Acute Review of Systems Constitutional: + weakness, + fatigue Respiratory: + dyspnea on exertion Cardiac: + edema Abdomen: + problem reported (distension) All Other Systems: Reviewed and Negative Medications Current Inpatient Medications Medications (Trade) Dose Ordered Sig/Carley Route Start Time Stop Time Status Last Admin Dose Admin Acetaminophen (Tylenol Tab) 650 mg Q4H PRN PO 10/18/16 16:00 11/17/16 15:59 10/20/16 21:28 650 MG Al Hydrox/Mg Hydrox/Simethicone (Maalox Max Susp) 15 ml Q4H PRN PO 10/18/16 16:00 11/17/16 15:59 Magnesium Hydroxide (Milk Of Magnesia Susp) 30 ml Q12H PRN PO 10/18/16 16:00 11/17/16 15:59 Ondansetron HCl (Zofran Inj) 4 mg Q6H PRN IV 10/18/16 16:00 11/17/16 15:59 Polyethylene (Miralax Powder Packet) 17 gm DAILY PRN PO 10/18/16 16:00 11/17/16 15:59 Cyanocobalamin (Vitamin B-12 Tab) 250 mcg DAILY PO 10/19/16 09:00 11/18/16 08:59 10/25/16 08:59 250 MCG Apixaban (Eliquis Tab) 5 mg BID PO 10/18/16 21:00 11/17/16 20:59 Future Hold 10/23/16 07:50 5 MG Hydrocodone Bit/ Homatropine Methylb (Hycodan Syrup) 5 ml Q4H PRN PO 10/18/16 16:30 11/01/16 16:29 10/20/16 21:28 5 ML Ipratropium [place] (Atrovent 0.02% 0.5MG/2.5ML Neb) 0.5 mg Q2H PRN INH 10/18/16 17:15 11/17/16 17:14 Levalbuterol (Xopenex 1.25MG/ 0.5ML Neb) 1.25 mg Q2H PRN INH 10/18/16 17:15 11/17/16 17:14 Metoprolol Tartrate (Lopressor Iv) 5 mg Q4 PRN IV 10/18/16 17:30 11/17/16 17:29 10/20/16 12:41 5 MG Hydralazine HCl (HydrALAZINE INJ) 10 mg Q6 PRN IV. 10/18/16 17:30 11/17/16 17:29 Chlorpromazine HCl (Thorazine Tab) 25 mg Q6 PRN PO 10/19/16 12:00 11/18/16 00:00 10/21/16 22:55 25 MG Metolazone (Zaroxolyn Tab) 2.5 mg DAILY PO 10/20/16 09:00 11/19/16 08:59 10/25/16 09:02 2.5 MG Spironolactone (Aldactone Tab) 50 mg DAILY PO 10/20/16 09:00 11/19/16 08:59 10/25/16 10:38 50 MG Amlodipine Besylate (Norvasc Tab) 2.5 mg QAM PO 10/20/16 09:00 11/19/16 08:59 10/25/16 08:59 2.5 MG Benzonatate (Tessalon Perles Cap) 100 mg TID PRN PO 10/20/16 04:00 11/19/16 03:59 10/22/16 17:25 100 MG Ipratropium [place] (Atrovent Hfa Inhaler) 2 puffs Q6 INH 10/20/16 18:00 11/19/16 17:59 10/25/16 14:26 2 PUFFS Levalbuterol (Xopenex Hfa Inhaler) 2 puffs Q6 INH 10/20/16 18:00 11/19/16 17:59 10/25/16 14:26 2 PUFFS Benzonatate (Tessalon Perles Cap) 100 mg TID PO 10/21/16 21:00 11/20/16 20:59 10/25/16 14:27 100 MG Magnesium Oxide (Mag-Ox Tab) 400 mg BID PO 10/24/16 09:00 11/23/16 08:59 10/25/16 09:00 400 MG Metoprolol Succinate (Toprol Xl Tab) 75 mg QAM PO 10/26/16 09:00 11/25/16 08:59 Furosemide (Lasix Tab) 40 mg TID PO 10/25/16 14:00 11/18/16 16:59 10/25/16 14:25 40 MG Potassium Chloride (Klor-Con Tab) 40 meq TID PO 10/25/16 14:00 11/18/16 08:59 10/25/16 14:27 40 MEQ Objective Vital Signs Date Time Temp Pulse Resp B/P (MAP) Pulse Ox O2 Delivery O2 Flow Rate FiO2 10/25/16 11:49 36.8 81 20 106/60 (75) 94 Nasal Cannula 2.0 10/25/16 11:30 36.8 80 20 114/68 (83) 92 Nasal Cannula 2.0 10/25/16 11:15 36.4 80 20 109/63 (78) 93 2.0 10/25/16 08:00 93 Nasal Cannula 2.0 10/25/16 07:30 36.8 94 20 127/73 (91) 93 2.0 10/25/16 00:00 Nasal Cannula 2.0 10/24/16 23:40 36.8 87 20 132/77 (95) 90 Room Air 10/24/16 19:52 37.0 88 19 110/64 (79) 90 Nasal Cannula 4.0 10/24/16 16:00 Nasal Cannula 2.0 10/24/16 15:34 36.6 91 18 126/73 (90) 94 Nasal Cannula 2.5 Physical Exam General Appearance: no apparent distress, + obese Neck: supple, no adenopathy, no JVD, trachea midline Respiratory/Chest: chest non-tender, lungs clear, no respiratory distress, no accessory muscle use, + decreased breath sounds (bases) Cardiovascular: regular rate, rhythm, no gallop, no JVD, no murmur Abdomen: normal bowel sounds, non tender, soft, no organomegaly, + pertinent finding (distended, significant ascites) Extremities: normal range of motion, non-tender, normal inspection, no calf tenderness, pelvis stable, + pedal edema 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, alert, oriented x 3, + abnormal gait, + motor weakness, + depressed affect Skin: + pertinent finding (dark discoloration bilaterally, old skin graft on right leg) Laboratory Results Last 24 Hours Test 10/25/16 06:41 White Blood Count 19.47 K/uL Red Blood Count 4.04 M/uL Hemoglobin 9.6 g/dL Hematocrit 31.2 % Mean Corpuscular Volume 77.2 fL Mean Corpuscular Hemoglobin 23.8 pg Mean Corpuscular Hemoglobin Concent 30.8 g/dl Platelet Count 150 K/uL Mean Platelet Volume 9.7 fL Neutrophils (%) (Auto) 71.6 % Lymphocytes (%) (Auto) 16.4 % Monocytes (%) (Auto) 10.6 % Eosinophils (%) (Auto) 0.4 % Basophils (%) (Auto) 0.2 % Neutrophils # (Auto) 13.94 K/uL Lymphocytes # (Auto) 3.19 K/uL Monocytes # (Auto) 2.07 K/uL Eosinophils # (Auto) 0.08 K/uL Basophils # (Auto) 0.04 K/uL RDW Standard Deviation 56.1 fL RDW Coefficient of Variation 20.2 % Immature Granulocyte % (Auto) 0.8 % Immature Granulocyte # (Auto) 0.15 K/uL Nucleated RBC Absolute Count (auto) 0.06 K/uL Nucleated Red Blood Cells % 0.3 % Polychromasia 1+ Anisocytosis PRESENT Target Cells 1+ Prothrombin Time 16.7 SECONDS Prothromb Time International Ratio 1.5 Sodium Level 133 mmol/L Potassium Level 3.2 mmol/L Chloride Level 86 mmol/L Carbon Dioxide Level 37 mmol/L Anion Gap 10.0 mmol/L Blood Urea Nitrogen 29 mg/dl Creatinine 0.76 mg/dl Est Creatinine Clear Calc Drug Dose 125.7 ml/min Estimated GFR () 105.6 Estimated GFR (Non- 91.1 BUN/Creatinine Ratio 38.4 Random Glucose 107 mg/dl Calcium Level 7.8 mg/dl Phosphorus Level 2.0 mg/dl Magnesium Level 1.9 mg/dl Total Bilirubin 2.6 mg/dl Direct Bilirubin 1.8 mg/dl Aspartate Amino Transf (AST/SGOT) 202 U/L Alanine Aminotransferase (ALT/SGPT) 65 U/L Alkaline Phosphatase 727 U/L Total Protein 6.0 gm/dl Albumin 1.7 gm/dl Assessment and Plan Mr. Breaux is a 71 y/o male with PMHx of HTN, Persistent Atrial Fibrillation, Peripheral Vascular Disease, and recent dx of Colon CA with Metastasis who presents to the ED c/o of progressive SOB x 3 weeks that has worsened 3-4 days [employer]. Acute diastolic HF, volume overload most likely related to liver malfunction, ascites - Echo - low normal EF with no mention of diastolic dysfunction; enlarged R atria - still with a lot of ascites, lungs clear, diuresing well, will actually increase Lasix to TID and monitor further response - continue Metalozone 2.5 mg daily, and Spironolactone 50 mg daily - I&O and daily weights: continues to diurese well, weight trending down, negative 2460 yesterday - significant ascites still likely due to liver mets, continue to diurese - Monitor electrolytes and replete as necessary, K low, increase to 40mEq TID dosing and follow closely, 3.1 today - Amlodipine 2.5 mg daily and Metoprolol 25 mg BID - Cardiology - recommendations for Metoprolol and continued diuresis for rate control and control of low normal EF and prevent further issues colon cancer with liver mets: need to determine plan, following with oncology? patient unsure, will d/w family today they were inquiring about prognosis, putting patient through invasive testing ? Leukocytosis: unclear etiology, 72% neutrophils, afebrile, no evidence of UTI, pneumonia and abdomen is not tender dark discoloration to legs but not hot, no clinical signs of cellulitis continue to monitor, has had leukocytosis since time of admission Persistent Atrial Fibrillation with RVR: Follows with Dr. 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 Chronic Anemia: - Values are low normal - microcytic vs anemia of chronic disease - given colon CA likely chronic blood loss HTN: - Diuretic therapy, Amlodipine, and Metoprolol Chronic Venous Insufficiency: STABLE - BLE edema and erythema - no signs of cellulitis - Outside records reviewed that this was a concern last month and he was treated with Azithromycin and Doxycycline as an outpatient and then admitted and switched to Vancomycin, Cefepime, and Clindamycin - Will continue to monitor and can add antibiotics if deemed necessary, currently afebrile, WBC normal, no cellulitis on exam DVT Prophylaxis: INR 1.5 Code Status: FULL RESUSCITATION Disposition: - Cardiology - Dr. Logan - will likely need F/U prior to surgery for risk stratification - PT recs for ECF, OT recs for inpt rehab - referral made to [facility] Continued [facility] stay due to: ambulation difficulties Discharge planning: uncertain
[2016-10-26] MEDS: LEValbuterol HFA 15GM INHALER INH SCH ×4 (05:44→23:40)
[2016-10-26] MEDS: IPRATROPIUM BROMIDE HFA INHALER INH SCH ×4 (05:44→23:40)
[2016-10-26 07:27] VITALS: O2SAT 93
[2016-10-26 07:54] VITALS: BP 105/65; PULSE 78; TEMP 36.5; O2SAT 94
[2016-10-26] MEDS: BENZONATATE 100MG CAP PO SCH ×3 (08:47→20:36)
[2016-10-26] MEDS: FUROSEMIDE 40 MG TAB PO SCH ×3 (08:48→20:37)
[2016-10-26] MEDS: MAGNESIUM OXIDE 400 MG TAB PO SCH ×2 (08:48→20:37)
[2016-10-26] MEDS: POTASSIUM CHLORIDE 20 MEQ TABCR PO SCH ×3 (08:49→20:36)
[2016-10-26] MEDS: METOLAZONE 2.5 MG TAB PO SCH (08:49)
[2016-10-26] MEDS: SPIRONOLACTONE 25 MG TAB PO SCH (08:50)
[2016-10-26] MEDS: METOPROLOL SUCC 25MG EXT REL TAB PO SCH (08:50)
[2016-10-26] MEDS: CYANOCOBALAMIN 500 MCG TAB (VIT B-12) PO SCH (08:50)
[2016-10-26] MEDS: AMLODIPINE BESYLATE 5 MG TAB PO SCH (08:51)
--- NOTE | 2016-10-26 15:41 | Progress Note ---
Subjective Date of Service: Oct 26, 2016. Subjective Pt evaluation today including: conversation w/ patient, physical exam, lab review, conversation w/ service consultant, review of inpatient medication list Pain: no pain PO Intake: adequate Voiding: tao catheter in place long talk with patient about prognosis, poor candidate for chemotherapy Dr. Brand visited with patient as well, stressed that he is not candidate for chemo with declining health recommend palliative approach d/w patient's contact Savage over the phone yesterday, he agrees that patient should be on hospice d/w , will try for [facility], no beds until next week Problem List Medical Problems: (1) CHF exacerbation Status: Acute Review of Systems Constitutional: + weakness, + fatigue Abdomen: + problem reported (distension) Neurologic: + weakness, + balance problems All Other Systems: Reviewed and Negative Medications Current Inpatient Medications Medications (Trade) Dose Ordered Sig/Carley Route Start Time Stop Time Status Last Admin Dose Admin Acetaminophen (Tylenol Tab) 650 mg Q4H PRN PO 10/18/16 16:00 11/17/16 15:59 10/20/16 21:28 650 MG Al Hydrox/Mg Hydrox/Simethicone (Maalox Max Susp) 15 ml Q4H PRN PO 10/18/16 16:00 11/17/16 15:59 Magnesium Hydroxide (Milk Of Magnesia Susp) 30 ml Q12H PRN PO 10/18/16 16:00 11/17/16 15:59 Ondansetron HCl (Zofran Inj) 4 mg Q6H PRN IV 10/18/16 16:00 11/17/16 15:59 Polyethylene (Miralax Powder Packet) 17 gm DAILY PRN PO 10/18/16 16:00 11/17/16 15:59 10/25/16 17:13 17 GM Cyanocobalamin (Vitamin B-12 Tab) 250 mcg DAILY PO 10/19/16 09:00 11/18/16 08:59 10/26/16 08:50 250 MCG Apixaban (Eliquis Tab) 5 mg BID PO 10/18/16 21:00 11/17/16 20:59 Future Hold 10/23/16 07:50 5 MG Hydrocodone Bit/ Homatropine Methylb (Hycodan Syrup) 5 ml Q4H PRN PO 10/18/16 16:30 11/01/16 16:29 10/20/16 21:28 5 ML Ipratropium [place] (Atrovent 0.02% 0.5MG/2.5ML Neb) 0.5 mg Q2H PRN INH 10/18/16 17:15 11/17/16 17:14 Levalbuterol (Xopenex 1.25MG/ 0.5ML Neb) 1.25 mg Q2H PRN INH 10/18/16 17:15 11/17/16 17:14 Metoprolol Tartrate (Lopressor Iv) 5 mg Q4 PRN IV 10/18/16 17:30 11/17/16 17:29 10/20/16 12:41 5 MG Hydralazine HCl (HydrALAZINE INJ) 10 mg Q6 PRN IV. 10/18/16 17:30 11/17/16 17:29 Chlorpromazine HCl (Thorazine Tab) 25 mg Q6 PRN PO 10/19/16 12:00 11/18/16 00:00 10/21/16 22:55 25 MG Metolazone (Zaroxolyn Tab) 2.5 mg DAILY PO 10/20/16 09:00 11/19/16 08:59 10/26/16 08:49 2.5 MG Spironolactone (Aldactone Tab) 50 mg DAILY PO 10/20/16 09:00 11/19/16 08:59 10/26/16 08:50 50 MG Amlodipine Besylate (Norvasc Tab) 2.5 mg QAM PO 10/20/16 09:00 11/19/16 08:59 10/26/16 08:51 2.5 MG Benzonatate (Tessalon Perles Cap) 100 mg TID PRN PO 10/20/16 04:00 11/19/16 03:59 10/22/16 17:25 100 MG Ipratropium [place] (Atrovent Hfa Inhaler) 2 puffs Q6 INH 10/20/16 18:00 11/19/16 17:59 10/26/16 12:59 2 PUFFS Levalbuterol (Xopenex Hfa Inhaler) 2 puffs Q6 INH 10/20/16 18:00 11/19/16 17:59 10/26/16 12:59 2 PUFFS Benzonatate (Tessalon Perles Cap) 100 mg TID PO 10/21/16 21:00 11/20/16 20:59 10/26/16 13:01 100 MG Magnesium Oxide (Mag-Ox Tab) 400 mg BID PO 10/24/16 09:00 11/23/16 08:59 10/26/16 08:48 400 MG Metoprolol Succinate (Toprol Xl Tab) 75 mg QAM PO 10/26/16 09:00 11/25/16 08:59 10/26/16 08:50 75 MG Furosemide (Lasix Tab) 40 mg TID PO 10/25/16 14:00 11/18/16 16:59 10/26/16 13:02 40 MG Potassium Chloride (Klor-Con Tab) 40 meq TID PO 10/25/16 14:00 11/18/16 08:59 10/26/16 13:01 40 MEQ Objective Vital Signs Date Time Temp Pulse Resp B/P (MAP) Pulse Ox O2 Delivery O2 Flow Rate FiO2 10/26/16 07:54 36.5 78 18 105/65 (78) 94 2.0 10/26/16 07:27 93 Nasal Cannula 2.0 10/26/16 00:00 Nasal Cannula 2.0 10/25/16 23:41 36.5 85 18 114/68 (83) 92 Nasal Cannula 2.0 10/25/16 16:58 Nasal Cannula 2.0 10/25/16 15:51 37.2 83 20 113/65 (81) 93 Nasal Cannula 2.0 Physical Exam General Appearance: no apparent distress, + obese Neck: supple, no adenopathy, no JVD, trachea midline Respiratory/Chest: chest non-tender, lungs clear, normal breath sounds, no respiratory distress, no accessory muscle use Cardiovascular: regular rate, rhythm, no edema, no gallop, no JVD, no murmur Abdomen: normal bowel sounds, non tender, soft, no organomegaly, + pertinent finding (ascites) Extremities: normal range of motion, non-tender, normal inspection, no pedal edema, no calf tenderness, pelvis stable 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 Breaux is a 71 y/o male with PMHx of HTN, Persistent Atrial Fibrillation, Peripheral Vascular Disease, and recent dx of Colon CA with Metastasis who presents to the ED c/o of progressive SOB x 3 weeks that has worsened 3-4 days [employer]. Acute diastolic HF, volume overload most likely related to liver malfunction, ascites - Echo - low normal EF with no mention of diastolic dysfunction; enlarged R atria - still with a lot of ascites, lungs clear, diuresing well, will actually increase Lasix to TID and monitor further response [id number] out yesterday - continue Metalozone 2.5 mg daily, and Spironolactone 50 mg daily - I&O and daily weights: weight down 10kg since admission - Monitor electrolytes and replete as necessary, K low, increase to 40mEq TID dosing and follow closely, 3.2 today - Amlodipine 2.5 mg daily and Metoprolol 25 mg BID - Cardiology - recommendations for Metoprolol and continued diuresis for rate control and control of low normal EF and prevent further issues colon cancer with liver mets: Dr. Brand recommending palliative care, too weak to undergo chemotherapy patient understands updated patient contact, friend Savage Leukocytosis: unclear etiology, 72% neutrophils, afebrile, no evidence of UTI, pneumonia and abdomen is not tender dark discoloration to legs but not hot, no clinical signs of cellulitis continue to monitor, has had leukocytosis since time of admission Persistent Atrial Fibrillation with RVR: Follows with Dr. 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 Chronic Anemia: - Values are low normal - microcytic vs anemia of chronic disease - given colon CA likely chronic blood loss HTN: - Diuretic therapy, Amlodipine, and Metoprolol Chronic Venous Insufficiency: STABLE - BLE edema and erythema - no signs of cellulitis - Outside records reviewed that this was a concern last month and he was treated with Azithromycin and Doxycycline as an outpatient and then admitted and switched to Vancomycin, Cefepime, and Clindamycin - Will continue to monitor and can add antibiotics if deemed necessary, currently afebrile, WBC normal, no cellulitis on exam DVT Prophylaxis: INR 1.5 Code Status: will change to DNR Disposition: - to [facility] when they have a bed, go under skilled for rehab, likely transition to palliative Continued [facility] stay due to: ambulation difficulties Discharge planning: uncertain
[2016-10-26 16:03] VITALS: BP 117/66; PULSE 84; TEMP 36.7; O2SAT 94
[2016-10-26 17:27] VITALS: O2SAT 94
[2016-10-26 23:36] VITALS: BP 122/69; PULSE 87; TEMP 36.8; O2SAT 95
[2016-10-27] MEDS: BENZONATATE 100MG CAP PO PRN (01:49)
[2016-10-27] MEDS: HYDROCODONE/HOMATROPINE SYRUP 5MG/1.5MG 5ML UDP PO PRN (03:37)
[2016-10-27] MEDS: LEValbuterol HFA 15GM INHALER INH SCH ×3 (06:02→18:00)
[2016-10-27] MEDS: IPRATROPIUM BROMIDE HFA INHALER INH SCH ×3 (06:02→18:00)
[2016-10-27 08:22] VITALS: BP 123/75; PULSE 92; TEMP 36.8; O2SAT 92
[2016-10-27] MEDS: SPIRONOLACTONE 25 MG TAB PO SCH (08:30)
[2016-10-27] MEDS: BENZONATATE 100MG CAP PO SCH ×3 (08:30→20:53)
[2016-10-27] MEDS: AMLODIPINE BESYLATE 5 MG TAB PO SCH (08:30)
[2016-10-27] MEDS: MAGNESIUM OXIDE 400 MG TAB PO SCH ×2 (08:30→20:53)
[2016-10-27] MEDS: POTASSIUM CHLORIDE 20 MEQ TABCR PO SCH ×3 (08:30→20:52)
[2016-10-27] MEDS: FUROSEMIDE 40 MG TAB PO SCH ×3 (08:30→20:53)
[2016-10-27] MEDS: METOPROLOL SUCC 25MG EXT REL TAB PO SCH (08:31)
[2016-10-27] MEDS: CYANOCOBALAMIN 500 MCG TAB (VIT B-12) PO SCH (08:31)
[2016-10-27] MEDS: METOLAZONE 2.5 MG TAB PO SCH (08:31)
--- NOTE | 2016-10-27 13:58 | Progress Note ---
Subjective Date of Service: Oct 27, 2016. Subjective Pt evaluation today including: conversation w/ patient, conversation w/ family , physical exam, review of inpatient medication list Pain: no pain PO Intake: adequate Voiding: tao catheter in place patient in bed, fatigued but in a good mood planning on family meeting this afternoon with friend and friend's daughter arranging for home hospice for tomorrow Problem List Medical Problems: (1) CHF exacerbation Status: Acute Review of Systems Constitutional: + weakness, + fatigue Respiratory: + dyspnea on exertion Abdomen: + problem reported (distention, ascites) Neurologic: + weakness, + balance problems All Other Systems: Reviewed and Negative Medications Current Inpatient Medications Medications (Trade) Dose Ordered Sig/Carley Route Start Time Stop Time Status Last Admin Dose Admin Acetaminophen (Tylenol Tab) 650 mg Q4H PRN PO 10/18/16 16:00 11/17/16 15:59 10/20/16 21:28 650 MG Al Hydrox/Mg Hydrox/Simethicone (Maalox Max Susp) 15 ml Q4H PRN PO 10/18/16 16:00 11/17/16 15:59 Magnesium Hydroxide (Milk Of Magnesia Susp) 30 ml Q12H PRN PO 10/18/16 16:00 11/17/16 15:59 Ondansetron HCl (Zofran Inj) 4 mg Q6H PRN IV 10/18/16 16:00 11/17/16 15:59 Polyethylene (Miralax Powder Packet) 17 gm DAILY PRN PO 10/18/16 16:00 11/17/16 15:59 10/25/16 17:13 17 GM Cyanocobalamin (Vitamin B-12 Tab) 250 mcg DAILY PO 10/19/16 09:00 11/18/16 08:59 10/27/16 08:31 250 MCG Apixaban (Eliquis Tab) 5 mg BID PO 10/18/16 21:00 11/17/16 20:59 Future Hold 10/23/16 07:50 5 MG Hydrocodone Bit/ Homatropine Methylb (Hycodan Syrup) 5 ml Q4H PRN PO 10/18/16 16:30 11/01/16 16:29 10/27/16 03:37 5 ML Ipratropium [place] (Atrovent 0.02% 0.5MG/2.5ML Neb) 0.5 mg Q2H PRN INH 10/18/16 17:15 11/17/16 17:14 Levalbuterol (Xopenex 1.25MG/ 0.5ML Neb) 1.25 mg Q2H PRN INH 10/18/16 17:15 11/17/16 17:14 Metoprolol Tartrate (Lopressor Iv) 5 mg Q4 PRN IV 10/18/16 17:30 11/17/16 17:29 10/20/16 12:41 5 MG Hydralazine HCl (HydrALAZINE INJ) 10 mg Q6 PRN IV. 10/18/16 17:30 11/17/16 17:29 Chlorpromazine HCl (Thorazine Tab) 25 mg Q6 PRN PO 10/19/16 12:00 11/18/16 00:00 10/21/16 22:55 25 MG Metolazone (Zaroxolyn Tab) 2.5 mg DAILY PO 10/20/16 09:00 11/19/16 08:59 10/27/16 08:31 2.5 MG Spironolactone (Aldactone Tab) 50 mg DAILY PO 10/20/16 09:00 11/19/16 08:59 10/27/16 08:30 50 MG Amlodipine Besylate (Norvasc Tab) 2.5 mg QAM PO 10/20/16 09:00 11/19/16 08:59 10/27/16 08:30 2.5 MG Benzonatate (Tessalon Perles Cap) 100 mg TID PRN PO 10/20/16 04:00 11/19/16 03:59 10/27/16 01:49 100 MG Ipratropium [place] (Atrovent Hfa Inhaler) 2 puffs Q6 INH 10/20/16 18:00 11/19/16 17:59 10/27/16 11:30 2 PUFFS Levalbuterol (Xopenex Hfa Inhaler) 2 puffs Q6 INH 10/20/16 18:00 11/19/16 17:59 10/27/16 11:30 2 PUFFS Benzonatate (Tessalon Perles Cap) 100 mg TID PO 10/21/16 21:00 11/20/16 20:59 10/27/16 13:47 100 MG Magnesium Oxide (Mag-Ox Tab) 400 mg BID PO 10/24/16 09:00 11/23/16 08:59 10/27/16 08:30 400 MG Metoprolol Succinate (Toprol Xl Tab) 75 mg QAM PO 10/26/16 09:00 11/25/16 08:59 10/27/16 08:31 75 MG Furosemide (Lasix Tab) 40 mg TID PO 10/25/16 14:00 11/18/16 16:59 10/27/16 13:48 40 MG Potassium Chloride (Klor-Con Tab) 40 meq TID PO 10/25/16 14:00 11/18/16 08:59 10/27/16 13:47 40 MEQ Objective Vital Signs Date Time Temp Pulse Resp B/P (MAP) Pulse Ox O2 Delivery O2 Flow Rate FiO2 10/27/16 08:22 36.8 92 18 123/75 (91) 92 Nasal Cannula 2.0 10/27/16 08:00 Nasal Cannula 2.0 10/27/16 00:00 Nasal Cannula 2.0 10/26/16 23:36 36.8 87 20 122/69 (86) 95 Nasal Cannula 2.0 10/26/16 17:27 94 Nasal Cannula 2.0 10/26/16 16:03 36.7 84 18 117/66 (83) 94 Nasal Cannula 2.0 Physical Exam General Appearance: no apparent distress, + obese Eyes: normal inspection, EOMI, sclerae normal ENT: normal ENT inspection, hearing grossly normal, pharynx normal Neck: supple, no adenopathy, no JVD, trachea midline Respiratory/Chest: chest non-tender, lungs clear, normal breath sounds, no respiratory distress, no accessory muscle use Cardiovascular: regular rate, rhythm, no edema, no gallop, no JVD, no murmur Abdomen: normal bowel sounds, non tender, soft, no organomegaly, + pertinent finding (ascites, large volume) Extremities: normal range of motion, non-tender, normal inspection, no pedal edema, no calf tenderness Neurologic/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 Acute diastolic HF, volume overload most likely related to liver malfunction, ascites - Echo - low normal EF with no mention of diastolic dysfunction; enlarged R atria - still with a lot of ascites, lungs clear, diuresing well, however, suspect that ascites is malignant, fluid accumulating as quick as it is diuresed - continue Metalozone 2.5 mg daily, and Spironolactone 50 mg daily - I&O and daily weights: weight down 10kg since admission - Monitor electrolytes and replete as necessary, K low at 3.2 yesterday, continue KCl 40mEq TID with lasix - Amlodipine 2.5 mg daily and Metoprolol 25 mg BID - Cardiology - recommendations for Metoprolol and continued diuresis for rate control and control of low normal EF and prevent further issues colon cancer with liver mets: Dr. Brand recommending palliative care, too weak to undergo chemotherapy patient understands family meeting today to arrange home hospice everything should in place by tomorrow Leukocytosis: unclear etiology, 72% neutrophils, afebrile, no evidence of UTI, pneumonia and abdomen is not tender dark discoloration to legs but not hot, no clinical signs of cellulitis continue to monitor, has had leukocytosis since time of admission Persistent Atrial Fibrillation with RVR: Follows with Dr. 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
[2016-10-27 14:56] VITALS: BP 118/69; PULSE 80; TEMP 36.8; O2SAT 97
[2016-10-27 16:00] VITALS: O2SAT 97
[2016-10-28 00:02] VITALS: BP 118/63; PULSE 86; TEMP 36.8; O2SAT 92
[2016-10-28] MEDS: IPRATROPIUM BROMIDE HFA INHALER INH SCH ×2 (06:17)
[2016-10-28] MEDS: LEValbuterol HFA 15GM INHALER INH SCH ×2 (06:17)
[2016-10-28 07:16] VITALS: BP 113/67; PULSE 81; TEMP 36.5; O2SAT 95
[2016-10-28] MEDS: MAGNESIUM OXIDE 400 MG TAB PO SCH (08:09)
[2016-10-28] MEDS: FUROSEMIDE 40 MG TAB PO SCH (08:10)
[2016-10-28] MEDS: METOPROLOL SUCC 25MG EXT REL TAB PO SCH (08:10)
[2016-10-28] MEDS: METOLAZONE 2.5 MG TAB PO SCH (08:10)
[2016-10-28] MEDS: BENZONATATE 100MG CAP PO SCH (08:11)
[2016-10-28] MEDS: SPIRONOLACTONE 25 MG TAB PO SCH (08:11)
[2016-10-28] MEDS: CYANOCOBALAMIN 500 MCG TAB (VIT B-12) PO SCH (08:11)
[2016-10-28] MEDS: AMLODIPINE BESYLATE 5 MG TAB PO SCH (08:12)
[2016-10-28] MEDS: POTASSIUM CHLORIDE 20 MEQ TABCR PO SCH (08:12)
[2016-10-28] MEDS ORDERED: LORA-741 PO (10:08)
[2016-10-28] MEDS ORDERED: RXNS5 PO (10:08)
[2016-10-28] MEDS ORDERED: POTA20TA13 PO (10:08)
[2016-10-28] MEDS ORDERED: TPRSR25 PO (10:08)
--- NOTE | 2016-10-28 10:15 | Discharge Instructions ---
Discharge Instructions Date of Service Oct 28, 2016. Admission Reason for Admission: Congestive Heart Failure Discharge Discharge Diagnosis / Problem: Metastatic colon cancer, diastolic heart failure , respiratory failure Discharge Goals Goal(s): Decrease discomfort, Specific goals (hospice, comfort measures) Activity Recommendations Activity Limitations: per Instructions/Follow-up section Lifting Limitations: none Exercise/Sports Limitations: as tolerated Shower/Bathe: no limitations . Instructions / Follow-Up Instructions / Follow-Up Medications: medications that are being continued are intended to keep you comfortable - LASIX: keep fluid out of your lungs, continue to take twice a day - MORPHINE SULFATE: absorbed in the mouth, take as needed if you have any pain or feel short of breath as morphine can relieve distress - ATIVAN: can take as needed for any anxiety or distress associated with pain or shortness of breath In summary, you have metastatic colon cancer with metastatic lesions in the liver causing liver failure. Evident in elevated liver enzymes, ascites (fluid in the belly), poor coagulation. Dr. Brand with oncology recommends palliative care as you are too weak and ill to undergo chemotherapy, would make your quality of life worse. Hospice has been consulted, will help with plan once you are home, will determine necessary medications. Steel will remain for comfort to keep you dry and so you don't have to get up frequently to urinate. FOLLOW UP - home hospice agency Current Hospital Diet Patient's current hospital diet: AHA Diet (Heart Healthy), Low Sodium Diet (2gm Na) Discharge Diet Recommended Diet: Regular Diet (you may eat what you want, eat for comfort) Pending Studies Studies pending at discharge: no Laboratory Results Lipid Panel Test 10/19/16 00:58 Range/Units Triglycerides Level 112 0-150 mg/dl Cholesterol Level 112 0-200 mg/dl HDL Cholesterol 9 mg/dl Cholesterol/HDL Ratio 12.4 LDL Cholesterol, Calculated 81 mg/dl Medical Emergencies . Who to Call and When: Medical Emergencies: If at any time you feel your situation is an emergency, please call 911 immediately. . Non-Emergent Contact Non-Emergency issues call your: Primary Care Provider Call Non-Emergent contact if: you have any medication questions . . "Provider Documentation" section prepared by Sd Mittal. . VTE Core Measure Inpt VTE Proph given/why not?: Other Anticoagulation (Eliquis) [place] Drug Monitoring Program Search Results: no issues identified
[2016-10-28 10:19] VITALS: BP 113/67; PULSE 81; TEMP 36.5; O2SAT 95
--- NOTE | 2016-10-28 12:53 | Discharge Summary ---
Discharge Summary Date of Service Oct 28, 2016. Discharge Summary Admission Date: Oct 18, 2016 at 15:56 Discharge Date: Oct 28, 2016 Discharge Disposition: Home with services (hospice) Principal Diagnosis: Metastatic colon cancer, liver lesions Problems/Secondary Diagnoses: Acute diastolic heart failure Acute hypoxic respiratory failure Atrial fibrillation Ascites Procedures: none Consultations: Cardiology Oncology Medication Reconciliation New Medications: Lorazepam (Ativan) 0.5 Mg Tab 0.5 MG PO Q6H PRN for Anxiety, #30 TAB Morphine Sulfate (Morphine Sulfate) 5 Mg/0.25 Ml Soln 0.25 ML PO Q4 PRN for Pain, #50 ML 0 Refills Metoprolol Succinate (Metoprolol Succinate ER) 25 Mg Tabcr 75 MG PO QAM, #90 TABS 2 Refills Changed Medications: Potassium Chloride Microencaps (Potassium Chloride Er) 20 Meq Tab 1 TAB PO BID for 30 Days, #60 TAB 5 Refills (Changed from: DAILY; 30) Continued Medications: Apixaban (Eliquis) 5 Mg Tab 5 MG PO BID, TAB Cyanocobalamin (Vitamin B-12) 250 Mcg Tab 250 MCG PO DAILY, TAB Furosemide (Lasix) 40 Mg Tab 40 MG PO BID, TAB Metolazone (Zaroxolyn) 2.5 Mg Tab 2.5 MG PO DAILY, TAB Spironolactone (Aldactone) 50 Mg Tab 1 TAB PO DAILY for 30 Days, #30 TAB 3 Refills Discharge Exam Patient feeling well. No acute issues, sleeping well, eating well. No shortness of breath. discussed plans for home hospice, has a hospital bed, Gregorio lift, home oxygen. will d/c on tao discussed use of morphine for shortness of breath, hospice will help him Review of Systems: Constitutional: + weakness, + fatigue, No fever, No chills, No sweats, No weight loss, No problem reported Eyes: No worsening of vision, No eye pain, No redness, No discharge, No diplopia, No problem reported ENT: No hearing loss, No unusual epistaxis, No nasal symptoms, No sore throat, No tinnitus, No dental problems, No trouble swallowing, No problem reported Respiratory: + dyspnea on exertion, No cough, No sputum, No wheezing, No shortness of breath, No dyspnea at rest, No hemoptysis, No problem reported Cardiovascular: + edema, No chest pain, No orthopnea, No PND, No claudication, No palpitations, No problem reported Abdomen: + problem reported (ascites), No pain, No nausea, No vomiting, No diarrhea, No constipation, No GI bleeding Musculoskeletal: No joint pain, No muscle pain, No swelling, No calf pain, No problem reported Genitourinary - Male: + problem reported (tao catheter) Neurologic: + weakness, + balance problems, No memory loss, No paralysis, No numbness/tingling, No vertigo, No problem reported Psychiatric: + depression symptoms, No anhedonism, No anxiety, No insomnia, No substance abuse, No problem reported Endocrine: No fatigue, No excessive thirst, No excessive urination, No problem reported Hematologic / Lymphatic: No abnormal bleeding/bruising, No clotting problems , No swollen lymph nodes, No night sweats, No problem reported Integumentary: No rash, No itch, No new/changing skin lesions, No color change, No bleeding, No problem reported Physical Exam: General Appearance: no apparent distress, + obese Eyes: normal inspection, EOMI, sclerae normal ENT: normal ENT inspection, hearing grossly normal, pharynx normal Neck: supple, no adenopathy, no JVD, trachea midline Respiratory/Chest: chest non-tender, lungs clear, no respiratory distress, no accessory muscle use, + decreased breath sounds (bases) Cardiovascular: regular rate, rhythm, no gallop, no JVD, no murmur, normal peripheral pulses Abdomen / GI: normal bowel sounds, non tender, soft, no organomegaly, + pertinent finding (ascites) Extremities: normal inspection, no calf tenderness, normal capillary refill , normal range of motion, non-tender, pelvis stable, + pedal edema 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 Brand recommending palliative care, too weak to undergo chemotherapy patient understands family meeting yesterday, home hospice set up, friends and family to provide care POLST form completed, DNR and comfort measures only Gregorio lift, hospital bed, keep tao, home oxygen arranged Morphine and Ativan scripts provided Acute diastolic HF, volume overload most likely related to liver malfunction, ascites - Echo - low normal EF with no mention of diastolic dysfunction; enlarged R atria - still with a lot of ascites, lungs clear, diuresing well, however, suspect that ascites is malignant, fluid accumulating as quick as it is diuresed - continue Metalozone 2.5 mg daily, and Spironolactone 50 mg daily and Lasix 40mg PO BID - I&O and daily weights: weight down 10kg since admission - Monitor electrolytes, K low normal, continue KCl 20mEq BID - Amlodipine 2.5 mg daily and Metoprolol 25 mg BID Leukocytosis: unclear etiology, 72% neutrophils, afebrile, no evidence of UTI, pneumonia and abdomen is not tender dark discoloration to legs but not hot, no clinical signs of cellulitis continue to monitor, has had leukocytosis since time of admission Persistent Atrial Fibrillation with RVR: Follows with Dr. Logan/DASIA Salas Cards - continue Eliquis - Rate control with Metoprolol as above Elevated Troponin: TRENDING DOWN - Serial cardiac enzymes - likely mild increase could be related to demand ischemia from mild CHF and AFib RVR Transaminitis: TRENDING DOWN - Known liver metastases, these are the cause, d/w radiology, hold on any biopsy , not sure it would roving changer Chronic Anemia: - Values are low normal - microcytic vs anemia of chronic disease - given colon CA likely chronic blood loss HTN: - Diuretic therapy, Amlodipine, and Metoprolol Chronic Venous Insufficiency: STABLE - BLE edema and erythema - no signs of cellulitis DVT Prophylaxis: Eliquis Code Status: will change to DNR Disposition: home hospice today Total Time Spent: Greater than 30 minutes This includes examination of the patient, discharge planning, medication reconciliation, and communication with other providers. Discharge Instructions Please refer to the electronic Patient Visit Report (Discharge Instructions) for additional information. Follow-Up home hospice Dr. Guajardo Additional Copies To bAa Guajardo M.D.; Asim Brand MD
== END 2016-10-28 13:30 | disposition hospice, home (50) | DRG 292 ==
LOC: EDBD 11:23 → C.EDC 11:24 → C.2T 15:56 → ENRESERV 16:57 → C.MED 10-20 16:36
PROVIDERS: ADMIT Hospitalist; ATTEND Internal Medicine
DX: I50.33 Acute on chronic diastolic (congestive) heart failure (principal); C78.7 Secondary malignant neoplasm of liver and intrahepatic bile duct; R18.0 Malignant ascites; I48.1 Persistent atrial fibrillation; I24.8 Other forms of acute ischemic heart disease; I48.92 Unspecified atrial flutter; C18.9 Malignant neoplasm of colon, unspecified; Z51.5 Encounter for palliative care; D72.829 Elevated white blood cell count, unspecified; I11.0 Hypertensive heart disease with heart failure; R79.1 Abnormal coagulation profile; I27.2 Other secondary pulmonary hypertension; D50.0 Iron deficiency anemia secondary to blood loss (chronic); I87.2 Venous insufficiency (chronic) (peripheral); I73.9 Peripheral vascular disease, unspecified; E66.9 Obesity, unspecified; Z51.81 Encounter for therapeutic drug level monitoring; Z79.899 Other long term (current) drug therapy; Z79.01 Long term (current) use of anticoagulants; Z66 Do not resuscitate; Z68.36 Body mass index [BMI] 36.0-36.9, adult